=== PATIENT | female | born 2000 | race Caucasian/White ===

== ENCOUNTER 2023-12-04 20:00 | Emergency (ER) | payer OTHER, SELFPAY ==
[2023-12-04 20:02] VITALS: BP 154/76; PULSE 139; RESP 20; TEMP 37.1; O2SAT 98; BMI 35.0
--- NOTE | 2023-12-04 20:03 | ED.GENADULT ---
HPI - General Adult General Chief complaint: Allergic Reaction Stated complaint: allergic reaction, yes epi. Time Seen by Provider: 12/04/23 21:02 Source: patient Mode of arrival: ambulatory Limitations: no limitations History of Present Illness HPI narrative: Patient's allergic reaction to multiple food items on Xolair and Benadryl as needed had chicken wrap earlier and noticed swelling of the gum and tingling feeling on the lips took 3 x25 mg Benadryl tablet and EpiPen about 1 hour prior to arrival now feeling back to normal no throat swelling no difficulty in breathing no rash Related Data Previous Rx's Medication Instructions Recorded epinephrine 0.3 mg/0.3 mL 0.3 mg (0.3 mL) IM Q4H PRN 12/04/23 injection, auto-injector (EpiPen) anaphylaxis #2 ea Allergies Allergy/AdvReac Type Severity Reaction Status Date / Time azithromycin Allergy Anaphylaxis Verified 12/04/23 20:11 Beef Containing Products Allergy Anaphylaxis Verified 12/04/23 20:11 blackberry Allergy Anaphylaxis Verified 12/04/23 20:11 blueberry Allergy Anaphylaxis Verified 12/04/23 20:11 chicken derived [chicken] Allergy Anaphylaxis Verified 12/04/23 20:11 egg Allergy Anaphylaxis Verified 12/04/23 20:11 environmental allergies Allergy Unknown Verified 12/04/23 20:22 fish derived [fish] Allergy Anaphylaxis Verified 12/04/23 20:11 ibuprofen [From Advil] Allergy Anaphylaxis Verified 12/04/23 20:11 milk Allergy Anaphylaxis Verified 12/04/23 20:11 mustard Allergy Anaphylaxis Verified 12/04/23 20:11 naproxen [From Aleve] Allergy Anaphylaxis Verified 12/04/23 20:11 onion Allergy Anaphylaxis Verified 12/04/23 20:11 pork derived (porcine) Allergy Anaphylaxis Verified 12/04/23 20:11 raspberry Allergy Anaphylaxis Verified 12/04/23 20:11 strawberry Allergy Anaphylaxis Verified 12/04/23 20:11 sunflower seed Allergy Anaphylaxis Verified 12/04/23 20:11 Review of Systems Review of Systems: Yes all other systems are reviewed and are negative PMFSH Social History Social History Advance Directives: No Advance Directives Information Provided: No Physical Exam ED Vital Signs: Vital Signs - 24 hr 12/04/23 20:02 12/04/23 20:25 Temperature 98.8 F 98.6 F Pulse Rate 139 H 113 H Respiratory Rate 20 14 Blood Pressure 154/76 H 146/83 H Pulse Oximetry 98 98 Oxygen Delivery Method Room Air Room Air BMI result Body Mass Index 35.0 Appearance: Alert. Oriented X3. No acute distress. ENT: Pharynx normal. Oral Mucosa moist lip and tongue normal Neck: Normal inspection. Neck supple. CVS: Normal heart rate and rhythm. Pulses normal. Respiratory: No respiratory distress. Equal air entry bilateral, no wheezing/rales/rhonchi Abdomen: Soft and nontender. Skin: Skin warm and dry. Normal skin color. Normal skin turgor. extremities: No lower extremity edema. No calf tenderness Neuro: Oriented X 3. Course Course Course Narrative: This is a rapid medical exam: Additional HPI, ROS, PE not included below will be deferred to primary provider. Patient is a 23-year-old female presenting to the emergency department with complaint of lip swelling after eating a chicken wrap prior to arrival. Took 75mg of benadryl and used her Epi-pen prior to arrival. States this is the first time she has ever used her Epi-pen. States she has allergies to everything that it's possible to be allergy tested for. Lungs clear throughout, no angioedema noted, no uvula edema, patient speaking easily in full sentences. Tachycardic to 140. Plan: EKG Medical Decision Making Medical Decision Making [facility] Narrative: With allergic reactions responded to epi and Benadryl at this time patient is stable discharge patient home on EpiPen Discharge Plan Discharge Clinical Impression: Allergic reaction Patient Disposition: Home, Self-Care Instructions: General Allergic Reaction (ED) Additional Instructions: Take Benadryl as advised for recurrence of the allergic reaction May use EpiPen if gets worse and come to the hospital Continue your Xolair injection Follow-up with your allergic specialist Prescriptions: New epinephrine [EpiPen] 0.3 mg/0.3 mL auto-injector 0.3 mg IM Q4H PRN (Reason: anaphylaxis) Qty: 2 2RF
--- NOTE | 2023-12-04 20:06 | ECG_ITS ---
Test Reason : TACHYCARDIA Blood Pressure : / mmHG Vent. Rate : 118 BPM Atrial Rate : 119 BPM P-R Int : 148 ms QRS Dur : 076 ms QT Int : 314 ms P-R-T Axes : 049 040 046 degrees QTc Int : 440 ms Sinus tachycardia Otherwise normal ECG No previous ECGs available Referred By: Domitila Cantu Electronically Signed By:Efrain Dumas
[2023-12-04 20:25] VITALS: BP 146/83; PULSE 113; RESP 14; TEMP 37; O2SAT 98
== END 2023-12-04 21:46 | disposition home or self-care (01) ==
PROVIDERS: Emergency Provider Internal Medicine
DX: T78.1XXA Other adverse food reactions, not elsewhere classified, initial encounter (principal); X58.XXXA Exposure to other specified factors, initial encounter
CPT/HCPCS: 93005; 99283; 99284

== ENCOUNTER → 2023-12-04 20:06 | Outpatient (BNV) | payer OTHER, SELFPAY | PROVIDERS: Emergency Provider Internal Medicine; Visit Provider Internal Medicine Cardiovascular Disease | DX: R00.0 Tachycardia, unspecified (principal) | CPT/HCPCS: 93010 ==

== ENCOUNTER 2024-11-02 17:39 | Emergency (ER) | payer OTHER, SELFPAY ==
[2024-11-02 17:42] VITALS: BP 142/90; PULSE 108; RESP 20; TEMP 36.8; O2SAT 98; BMI 40.6
--- NOTE | 2024-11-02 17:48 | ED_ITS ---
HPI - General Adult General Chief complaint: Allergic Reaction Stated complaint: allergic reaction/epi pen used Time Seen by Provider: 11/02/24 18:37 Source: patient Mode of arrival: ambulatory Limitations: no limitations History of Present Illness ED Provider: Dr. Tobar HPI narrative: 24-year-old female presents emergency department complaining of allergic reaction. She feels like the food that she was eating was cross contaminated. Patient is allergic to multiple different foods. Patient is unsure what she was exposed today she did use Benadryl and EpiPen for resolution of symptoms she was given prednisone on arrival here. 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 Related Data Previous Rx's ?Medication ?Instructions ?Recorded epinephrine 0.3 mg/0.3 mL 0.3 mg (0.3 mL) IM Q4H PRN 12/04/23 injection, auto-injector (EpiPen) anaphylaxis #2 ea prednisone 20 mg tablet 60 mg (3 x 20 mg) PO DAILY Asthma 11/02/24 5 days #15 tabs Allergies Allergy/AdvReac Type Severity Reaction Status Date / Time azithromycin Allergy Anaphylaxis Verified 11/02/24 17:44 Beef Containing Products Allergy Anaphylaxis Verified 11/02/24 17:44 blackberry Allergy Anaphylaxis Verified 11/02/24 17:44 blueberry Allergy Anaphylaxis Verified 11/02/24 17:44 chicken derived [chicken] Allergy Anaphylaxis Verified 11/02/24 17:44 egg Allergy Anaphylaxis Verified 11/02/24 17:44 environmental allergies Allergy Unknown Verified 11/02/24 17:44 fish derived [fish] Allergy Anaphylaxis Verified 11/02/24 17:44 ibuprofen [From Advil] Allergy Anaphylaxis Verified 11/02/24 17:44 milk Allergy Anaphylaxis Verified 11/02/24 17:44 mustard Allergy Anaphylaxis Verified 11/02/24 17:44 naproxen [From Aleve] Allergy Anaphylaxis Verified 11/02/24 17:44 onion Allergy Anaphylaxis Verified 11/02/24 17:44 pork derived (porcine) Allergy Anaphylaxis Verified 11/02/24 17:44 raspberry Allergy Anaphylaxis Verified 11/02/24 17:44 strawberry Allergy Anaphylaxis Verified 11/02/24 17:44 sunflower seed Allergy Anaphylaxis Verified 11/02/24 17:44 Review of Systems Review of Systems: Review of systems: General: Patient denies any fever chills recent illness or falls Musculoskeletal: Denies back pain or body aches or other injuries HEENT: denies headache, runny nose, ear pain Respiratory: denies shortness of breath, cough Cardiovascular: no chest pain or palpitations : denies dysuria, frequency Abdomen: no nausea vomiting denies abdominal pain Extremities: no swelling, no pain Skin: no diaphoresis Yes all other systems are reviewed and are negative PMFSH Social History Social History Advance Directives: No Advance Directives Information Provided: No Physical Exam ED Vital Signs: Vital Signs - 24 hr 11/02/24 17:42 11/02/24 19:28 11/02/24 19:48 Temperature 98.2 F 98.5 F 98.5 F Pulse Rate 108 H 82 82 Respiratory Rate 20 18 18 Blood Pressure 142/90 H 124/74 124/74 Pulse Oximetry 98 98 98 Oxygen Delivery Method Room Air Room Air Room Air BMI result Body Mass Index 40.6 General: Well-appearing well-nourished in no signs of distress HEENT: Normocephalic atraumatic Neck: No signs of JVD, no masses no tenderness or lymphadenopathy Cardiovascular: Regular rate and rhythm Respiratory: Clear to auscultation bilaterally Abdomen: Soft nontender no masses Extremities: Normal pedal pulses no signs of edema Skin: Dry warm no rashes Back: No tenderness full ROM Course Course Course Narrative: RME: 24 yold female presents to the ED for allergic reaction. patient had sushi without her knowledge and then started having some upper lip swelling, facial swelling, hives, and abdominal cramping. Patient given EpiPen and Benadryl symptoms started resolving. Presently no angioedema patient states itchiness and abdominal cramping. Charge nurse crystal made aware and will bring patient back to the ED. Pepcid prednisone given. Patient took Benadryl about 50 mg hour ago. Medications Administered Discontinued Medications Generic Name Dose Route Start Last Admin Trade Name Freq PRN Reason Stop Dose Admin Famotidine 20 mg 11/02/24 17:46 11/02/24 17:50 Famotidine 20 Mg Tablet PO 11/02/24 17:47 20 mg ONCE ONE Administration Prednisone 40 mg 11/02/24 17:46 11/02/24 17:50 Prednisone 20 Mg Tablet PO 11/02/24 17:47 40 mg ONCE ONE Administration Medical Decision Making Medical Decision Making [facility] Narrative: Patient with multiple allergies under have originally did take Benadryl and epi I will send the patient home with prednisone Differential Diagnosis Differential Diagnoses: The differential diagnosis associated with the presentation includes Allergy Discharge Plan Discharge Clinical Impression: Allergic reaction Patient Disposition: Home, Self-Care Instructions: General Allergic Reaction (ED) Additional Instructions: You were seen today for an allergic reaction. You were given prednisone and sent home on prednisone if you have any other concerns please return to the ER Prescriptions: New prednisone 20 mg tablet 60 mg PO DAILY 5 Days Qty: 15 0RF No Action epinephrine [EpiPen] 0.3 mg/0.3 mL auto-injector 0.3 mg IM Q4H PRN (Reason: anaphylaxis) Qty: 2 2RF Interventions: ED Discharge Assessment Last Done: 11/02/24 19:48 Discharge Date/Time: 11/02/24 19:49 Print Language: Latvian
[2024-11-02] MEDS: predniSONE 20 MG TABLET 40 MG PO (17:50)
[2024-11-02] MEDS: Famotidine 20 MG TABLET PO (17:50)
--- OUTSIDE RECORDS SUMMARY | 2024-11-02 18:33 | XMS_ITS | Continuity of Care Document ---
Author Organization [facility] Address 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 Please contact the source practice for further details. Medications Medication Instructions Dosage Effective Dates (start - stop) Status Comments Xolair 150 mg/mL subcutaneous syringe inject 300MG by subcutaneous route every 4 weeks - Active EpiPen 2-Anselmo 0.3 mg/0.3 mL injection, auto-injector Inject Im for severe allergic reaction - Active Depo-Provera 150 mg/mL intramuscular syringe inject 1 milliliter by intramuscular route every 3 months 150 MG - Active Auvi-Q 0.3 mg/0.3 mL injection, auto-injector inject 0.3 milliliter by intramuscular route once as needed for anaphylaxis 0.3 MG - Active Symbicort 160 mcg-4.5 mcg/actuation HFA aerosol inhaler inhale 2 puff by inhalation route 2 times every day in the morning and evening 2.00 puff - Active ProAir HFA 90 mcg/actuation aerosol inhaler inhale 2 puff by inhalation route every 4 - 6 hours as needed - Active Renetta Allergy 180 mg tablet take 1 tablet by oral route every day 180 MG - Active Zyrtec 10 mg tablet take 1 tablet by ora l route every day 10 MG - Active Problems Condition Type Effective Dates (start - stop) Clini julio Status Comments No Known Problems Procedures Procedure Date OV, Estab Pt, Level III Therapeutic, Prophylactic, Diagnostic In [facility]; SQ Or IM Omalizumab (Xolair) Inj 5 Mg Pharmacy Santos pplied Percut Allergy Skin Tests OV, New Pt, Level IV OV, Estab Pt, Level III Diagnostic Nasal Endoscopy OV, Estab Pt, Level III Percut Allergy Skin Tests OV, Estab Pt, Level III OV, Estab Pt, Level III Control Nasal Hem,Anterior Complex OV, Estab Pt, Level III Percut Allergy Skin Tests Intracutaneous Tests W/ Allergen Ex OV, Estab Pt, Level III [facility]; 1/mx Antig 7 Prof Svcs For Allergen Immun, Multi Antigen Prep,Specify # Of Doses 017 Postop F/u Visit [facility] 7 Prof Svcs For Allergen Immun, Multi Antigen Prep,Specify # Of Doses - 017 Postop F/u Visit [facility] 7 Prof Svcs For Allergen Immun, Multi Antigen Prep,Specify # Of Doses - 017 Post Op Office Visit Post Op Office Visit Prof Svcs For Allergen Immun, Multi Antigen Prep,Specify # Of Doses 017 Post Op Office Visit Post Op Office Visit Septoplasty Resect Submucous Turbinate,Part/Com Repair Of Nasal Vestibular Stenosis OV, Estab Pt, Level III Prof Svcs For Allergen Immun, [facility] Antigen Prep,Specify # Of Doses 017 OV, Estab Pt, Level III Prof Svcs For Allergen Immun, [facility] Antigen Prep,Specify # Of Doses 017 Diagnostic Nasal Endoscopy OV, Estab Pt, Level III Prof Svcs For Allergen Immun, [facility] Antigen Prep,Specify # Of Doses 017 Prof Svcs For Allergen Immun, [facility] Antigen Prep,Specify # Of Doses 017 Prof Svcs For Allergen Immun, Multi Antigen Prep,Specify # Of Doses 017 Prof Svcs For Allergen Immun, [facility] Antigen Prep,Specify # Of Doses 016 Prof Svcs For Allergen Immun, Multi Antigen Prep,Specify # Of Doses 016 Spirometry W/bwyjy-nf-oghzn [place] 016 OV, Estab Pt, Level III Prof Svcs For Allergen Immun, Multi Antigen Prep,Specify # Of Doses 016 Prof Svcs For Allergen Immun, Multi Antigen Prep,Specify # Of Doses 016 Prof Svcs For Allergen Immun, [facility] Antigen Prep,Specify # Of Doses 016 Prof Svcs For Allergen Immun, Multi Antigen Prep,Specify # Of Doses 016 OV, Estab Pt, Level III Diagnostic Nasal Endoscopy Prof Svcs For Allergen Immun, [facility] Antigen Prep,Specify # Of Doses 016 Control Nasal Hem,Anterior Complex OV, Estab Pt, Level III Removal Impacted Cerumen Req Instrumenta tion Removal Impacted Cerumen Req Instrumenta tion Prof Svcs For Allergen Immun, Multi Antigen Prep,Specify # Of Doses 016 OV, Estab Pt, Level III No Service Provided This Day Prof Svcs For Allergen Immun, Multi Antigen Prep,Specify # Of Doses 016 Prof Svcs For Allergen Immun, Multi Antigen Prep,Specify # Of Doses 016 Prof Svcs For Allergen Immun, Multi Antigen Prep,Specify # Of Doses 016 Prof Svcs For Allergen Immun, Multi Antigen Prep,Specify # Of Doses 016 Prof Svcs For Allergen Immun, Multi Antigen Prep,Specify # Of Doses 016 Prof Svcs For Allergen Immun, Multi Antigen Prep,Specify # Of Doses 016 Prof Svcs For Allergen Immun, Multi Antigen Prep,Specify # Of Doses 016 Prof Svcs For Allergen Immun, Multi Antigen Prep,Specify # Of Doses -2 015 Prof Svcs For Allergen Immun, Multi Antigen Prep,Specify # Of Doses -2 015 Prof Svcs For Allergen Immun, Multi Antigen Prep,Specify # Of Doses -2 015 Prof Svcs For Allergen Immun, Multi Antigen Prep,Specify # Of Doses - 015 Prof Svcs For Allergen Immun, Multi Antigen Prep,Specify # Of Doses -2 015 Prof Svcs For Allergen Immun, Multi Antigen Prep,Specify # Of Doses - 015 OV, Estab Pt, Level III Percut Allergy Skin Tests Prof Svcs For Allergen Immun, Multi Antigen Prep,Specify # Of Doses 015 Prof Svcs For Allergen Immun, [facility] Antigen Prep,Specify # Of Doses 015 Prof Svcs For Allergen Immun, Multi Antigen Prep,Specify # Of Doses 015 Prof Svcs For Allergen Immun, Multi Antigen Prep,Specify # Of Doses 015 Prof Svcs For Allergen Immun, Multi Antigen Prep,Specify # Of Doses 015 Prof Svcs For Allergen Immun, Multi Antigen Prep,Specify # Of Doses 015 Prof Svcs For Allergen Immun, Multi Antigen Prep,Specify # Of Doses 015 OV, Estab Pt, Level III Prof Svcs For Allergen Immun, Multi Antigen Prep,Specify # Of Doses 015 Prof Svcs For Allergen Immun, Multi Antigen Prep,Specify # Of Doses 015 Prof Svcs For Allergen Immun, Multi Antigen Prep,Specify # Of Doses 015 No Service Provided This Day Prof Svcs For Allergen Immun, Multi Antigen Prep,Specify # Of Doses -2 015 Prof Svcs For Allergen Immun, Multi Antigen Prep,Specify # Of Doses -2 015 Prof Svcs For Allergen Immun, Multi Antigen Prep,Specify # Of Doses Dec--2 015 Prof Svcs For Allergen Immun, Multi Antigen Prep,Specify # Of Doses Dec--2 015 Prof Svcs For Allergen Immun, Multi Antigen Prep,Specify # Of Doses Nov--2 015 Prof Svcs For Allergen Immun, Multi Antigen Prep,Specify # Of Doses Nov--2 015 Prof Svcs For Allergen Immun, Multi Antigen Prep,Specify # Of Doses Nov--2 015 Prof Svcs For Allergen Immun, Multi Antigen Prep,Specify # Of Doses Nov--2 015 Prof Svcs For Allergen Immun, Multi Antigen Prep,Specify # Of Doses - 015 Prof Svcs For Allergen Immun, Multi Antigen Prep,Specify # Of Doses 015 Prof Svcs For Allergen Immun, Multi Antigen Prep,Specify # Of Doses 015 Prof Svcs For Allergen Immun, Multi Antigen Prep,Specify # Of Doses - 015 Prof Svcs For Allergen Immun, Multi Antigen Prep,Specify # Of Doses - 015 Prof Svcs For Allergen Immun, Multi Antigen Prep,Specify # Of Doses -2 014 Prof Svcs For Allergen Immun, Multi Antigen Prep,Specify # Of Doses -2 014 Prof Svcs For Allergen Immun, Multi Antigen Prep,Specify # Of Doses 014 Antigen Prep,Specify # Of Doses - 014 Prof Svcs For Allergen Immun, Multi Prof Svcs For Allergen Immun, Multi Antigen Prep,Specify # Of Doses - 014 Prof Svcs For Allergen Immun, Multi Antigen Prep,Specify # Of Doses -2 014 Prof Svcs For Allergen Immun, [facility] Antigen Prep,Specify # Of Doses -2 014 Prof Svcs For Allergen Immun, [facility] Antigen Prep,Specify # Of Doses -2 014 Prof Svcs For Allergen Immun, Multi Antigen Prep,Specify # Of Doses -2 014 Prof Svcs For Allergen Immun, [facility] Antigen Prep,Specify # Of Doses -2 014 Prof Svcs For Allergen Immun, [facility] Antigen Prep,Specify # Of Doses Jul--2 014 Prof Svcs For Allergen Immun, [facility] Antigen Prep,Specify # Of Doses -2 014 Prof Svcs For Allergen Immun, [facility] Antigen Prep,Specify # Of Doses -2 014 Prof Svcs For Allergen Immun, [facility] Antigen Prep,Specify # Of Doses - 014 Prof Svcs For Allergen Immun, [facility] Antigen Prep,Specify # Of Doses 014 Prof Svcs For Allergen Immun, [facility] Antigen Prep,Specify # Of Doses 014 Antigen Prep,Specify # Of Doses 014 Prof Svcs For Allergen Immun, [facility] Percut Allergy Skin Tests Intracutaneous Tests W/ Allergen Ex Consult, Level III /Office Advance Directives Directive Yes / No Effective Date File Name No Information Encounters Encounter Description Practice Location Reason(s) For Visit Diagnoses Date Provider Providers Copied on Encounter [facility], [address], [place], [place], [id number] , [place] tel: [phone] [facility] No Information 4 Poli Saleem. [address], [address], [place], [place], [id number], [place]. tel:[phone] [facility], [address], [place], [place], [id number] , [place] tel: [phone] [facility] No Information 3 Poli Saleem. [address], [address], [place], [address], [place]. tel:[phone] OV, Estab Pt, Level III [facility], [address], [place], [place], [address] , [place] tel: [phone] [facility] allergy symptoms (chief complaint)fo llow up (chief complaint) Idiopathic urticariaOthe r allergic rhinitisDerma titis due to ingested foodModerate persistent asthma, uncomplicated 3 Poli Saleem. [address], [address], [place], [place], [id number], [place]. tel:[phone] Referring Provider: Alex Gamboa, [address] [facility], [place], [address]. tel:[phone] [facility], [address], [place], [place], [address] , [place] tel: [phone] [facility] No Information 2 Poli Saleem. [address], [address], [place], [place], [id number], [place]. tel:[phone] [facility], [address], [place], [place], [address] , [place] tel: [phone] [facility] Idiopathic urticaria 2 Poli Saleem. [address], [address], [place], [address], [place]. tel:[phone] Referring Provider: Alex Gmaboa, [address] [place] [address], [address]. tel:[phone] [facility], [address], [place], [place], [address] , [place] tel: [phone] [facility] No Information 2 Poli Saleem. [address] , [facility] [address], [id number], [place]. tel:[phone] OV, New Pt, Level IV [facility], [address], [place], [place], [address] , [place] tel: [phone] [facility] allergy symptoms (chief complaint)fo llow up (chief complaint) Dermatitis due to ingested foodOther allergic rhinitisIdiop athic urticariaGene ralized skin eruption due to drugs and medicaments taken internallyMod erate persistent asthma, uncomplicated Allergic rhinitis, unspecifiedAl lergic rhinitis due to food 2 Poli Saleem. [address] , [address], [place], [address], [place]. tel:[phone] Referring Provider: Alex Gamboa, [address] [place] [address], [address]. tel:[phone] OV, Estab Pt, Level III [facility], [address], [place], [place], [address] , [place] tel: [phone] [facility] nasal congestion (chief complaint)Po stnasal drip (chief complaint) Chronic rhinitis 9 Lesli Venegas. [address], [address], [place], [place], [address], [place]. [phone] Referring Provider: Alex Gamboa, [facility], [place], [address]. tel:[phone] OV, Estab Pt, Level III [facility], [address], [place], [place], [address] , [place] tel: [phone] [facility] nasal congestion (chief complaint)Po stnasal drip (chief complaint) Allergic rhinitis due to pollenChronic rhinitisHyper trophy of nasal turbinates 9 Lesli Venegas. [address] [facility], [address], [id number], [place]. [phone] Referring Provider: Perla Fajardo, [address] [place], [address]. tel:[phone] OV, Estab Pt, Level III [facility], [address], [place], [place], [address] , [place] tel: [phone] [facility] allergy symptoms (chief complaint)fo llow up (chief complaint) Dermatitis due to ingested foodAllergic rhinitis due to pollenAllergi c rhinitis due to food 8 Poli Saleem. [address] [facility], [address], [place], [address], [place]. tel:[phone] Referring Provider: Perla Fajardo, [address] [place], [address]. tel:[phone] OV, Estab Pt, Level III [facility], [address], [place], [place], [address] , [place] tel: [phone] [facility] nosebleed (chief complaint) Allergic rhinitis, unspecifiedEp istaxis 8 Lesli Venegas. [address] [facility] [address], [address], [place], [address], [place]. tel:[phone] Referring Provider: Perla Scotty, [address], [place], [address]. tel:[phone] OV, Estab Pt, Level III [facility], [address], [place], [place], [address] , [place] tel: [phone] [facility] nasal congestion (chief complaint)no sebleed (chief complaint) Allergic rhinitis, unspecifiedEp istaxis Lesli Venegas. [address], [address], [place], [place], [address], [place]. tel:[phone] Referring Provider: Alex Gamboa, [address] [place] [address], [address]. tel:[phone] [facility], [address], [place], [place], [address] , [place] tel: [phone] [facility] No Information Poli Saleem. [address] [facility], [address], [place], [address], [place]. tel:[phone] OV, Estab Pt, Level III [facility], [address], [place], [place], [address] , [place] tel: [phone] [facility] allergy symptoms (chief complaint) Allergic rhinitis due to pollenDermati tis due to ingested foodOther allergic rhinitisAller gic rhinitis, unspecifiedAl lergic rhinitis due to food 7 Poli Saleem. [address] [facility], [address], [place], [address], [place]. tel:[phone] Referring Provider: Alex Gamboa, [address] [place] [address], [address]. tel:[phone] [facility], [address], [place], [place], [address] , [place] tel: [phone] [facility] post-operati ve visit (chief complaint) Deviated nasal septum Lesli Venegas. [address] [facility], [address], [place], [address], [place]. tel:[phone] Referring Provider: Perla Fajardo, [address] [place], [address]. tel: [phone] [facility], [address], [place], [place], [address] , [place] tel: [phone] [facility] Allergic rhinitis due to pollen No Information [facility], [address], [place], [place], [address] , [place] tel: [phone] [facility] Allergic rhinitis due to pollenOther allergic rhinitisAller gic rhinitis due to animal (cat) (dog) hair and dander Poli Saleem. [address] [facility], [address], [place], [address], [place]. tel:[phone] Referring Provider: Alex Gamboa, [facility], [place], [address]. tel:[phone] [facility], [address], [place], [place], [address] , [place] tel: [phone] [facility] post-operati ve visit (chief complaint) Deviated nasal septum Lesli Venegas. [address] [facility] [address] , [address], [place], [address], [place]. tel:[phone] Referring Provider: Perla Fajardo, [address] [place], [address]. tel:[phone] [facility], [address], [place], [place], [address] , [place] tel: [phone] [facility] Allergic rhinitis due to pollenOther allergic rhinitisAller gic rhinitis due to animal (cat) (dog) hair and dander 8 7 Lesli Venegas. [address] [facility], [address], [id number], [place]. tel: [phone] Referring Provider: Perla Fajardo, [address] [place], [address]. tel: [phone] [facility], [address], [place], [place], [address] , [place] tel: [phone] [facility] post-operati ve visit (chief complaint) Deviated nasal septum 7 Lesil Venegas. [address] [facility], [address], [id number], [place]. tel: [phone] Referring Provider: Alex Gamboa, [address] [place] [address], [facility]. tel: [phone] [facility], [address], [place], [place], [address] , [place] tel: [phone] [facility] Allergic rhinitis due to pollenOther allergic rhinitisAller gic rhinitis due to animal (cat) (dog) hair and dander 0 7 Poli Saleem. [address] [facility], [address], [place], [address], [place]. tel:[phone] Referring Provider: Alex Gambao, [address] [place] [address], [address]. tel: [phone] [facility], [address], [place], [place], [address] , [place] tel: [phone] [facility] post-operati ve visit (chief complaint) Deviated nasal septum 7 Lesli Venegas. [address] [facility], [address], [place], [address], [place]. tel:[phone] Referring Provider: Perla Fajardo, [address] [place], [address]. tel:[phone] [facility], [address], [place], [place], [address] , [place] tel: [phone] [facility] post-operati ve visit (chief complaint) Deviated nasal septum 0- 7 Lesli Venegas. [address] [facility], [facility] [address], [place], [address], [place]. tel:[phone] Referring Provider: Alex Gamboa, [address] [place] [address], [address]. tel:[phone] [facility], [address], [place], [address] , [place] tel: [phone] [facility] Allergic rhinitis due to pollenOther allergic rhinitisAller gic rhinitis due to animal (cat) (dog) hair and dander 7 Poli Saleem. [address] [facility], [address], [place], [address], [place]. tel:[phone] Referring Provider: Alex Gamboa, [address] [place] [address], [address]. tel:[phone] [facility], [address] [place] [address], [id number] , [place] tel: [phone] [facility] post-operati ve visit (chief complaint) Deviated nasal septum 7 Lesli Venegas. [address] [facility], [address], [place], [address], [place]. tel:[phone] Referring Provider: Alex Gamboa, [address] [place] [address], [address]. tel:[phone] [facility], [address], [place], [address] , [place] tel: [phone] [facility] Deviated nasal septumHypertr ophy of nasal turbinatesOth er specified disorders of nose and nasal sinuses 7 Lesli Venegas. [address], [address], [place], [address], [place]. tel:[phone] [facility], [address], [place], [place], [address] , [place] tel: [phone] [facility] Deviated nasal septum 7 Lesli Venegas. [address], [facility] [address], [place], [address], [place]. tel:[phone] Referring Provider: Perla Fajardo, [address] [place], [address]. tel:[phone] [facility], [address], [place], [place], [address] , [place] tel: [phone] [facility] No Information 7 Lesli Venegas. [address] [facility], [address], [id number], [place]. tel:[phone] Referring Provider: Alex Gamboa, [address] [place] [address], [address]. tel:[phone] OV, Estab Pt, Level III [facility], [address], [place], [place], [address] , [place] tel: [phone] [facility] nasal congestion (chief complaint)Na otto obstruction (chief complaint) Deviated nasal septumHypertr ophy of nasal turbinatesOth er specified disorders of nose and nasal sinuses 0 7 Lesli Venegas. [address] [facility] [address], [facility] [address], [place], [address], [place]. tel:[phone] Referring Provider: Alex Gamboa, [address] [place] [address], [address]. tel:[phone] [facility], [address], [place], [place], [address] , [place] tel: [phone] [facility] Allergic rhinitis due to pollenOther allergic rhinitisAller gic rhinitis due to animal (cat) (dog) hair and dander Apr-2 7 Poli Saleem. [address] [facility], [address], [place], [address], [place]. tel:[phone] Referring Provider: Alex Gamboa, [address] [place] [address], [facility]. tel:[phone] OV, Estab Pt, Level III [facility], [address] [place] [address], [id number] , [place] tel: [phone] [facility] nasal congestion (chief complaint)Na otto obstruction (chief complaint) Allergic rhinitis due to animal (cat) (dog) hair and danderNasal congestionOth er specified disorders of nose and nasal sinusesHypert rophy of nasal turbinatesDev iated nasal septum Apr-2 7 Lesli Venegas. [address] [facility], [address], [place], [place], [address], [place]. tel:[phone] Referring Provider: Alex Gamboa, [address] [place] [address], [facility]. tel:[phone] [facility], [address] [place] [address], [id number] , [place] tel: [phone] [facility] Allergic rhinitis due to pollenOther allergic rhinitisAller gic rhinitis due to animal (cat) (dog) hair and dander Apr-0 7 Poli Saleem. [address], [address], [place], [address], [place]. tel:[phone] Referring Provider: Perla Fajardo, [address] [place], [address]. tel:[phone] OV, Estab Pt, Level III [facility], [address] [place] [address], [id number] , [place] tel: [phone] [facility] nasal congestion (chief complaint)Na otto obstruction (chief complaint) Deviated nasal septumHypertr ophy of nasal turbinatesOth er specified disorders of nose and nasal sinusesNasal congestion 7 Lesli Venegas. [address] [facility] [address], [address], [place], [place], [address], [place]. tel:[phone] Referring Provider: Perla Fajardo, [address], [place], [address]. tel:[phone] [facility], [address], [place], [place], [address] , [place] tel: [phone] [facility] Allergic rhinitis due to pollenOther allergic rhinitisAller gic rhinitis due to animal (cat) (dog) hair and dander Poli Saleem. [address] , [address], [place], [address], [place]. tel:[phone] Referring Provider: Alex Gamboa, [address] [place] [address], [address]. tel:[phone] [facility], [address], [place], [place], [address] , [place] tel: [phone] [facility] Allergic rhinitis due to pollenOther allergic rhinitisAller gic rhinitis due to animal (cat) (dog) hair and dander 7 Poli Saleem. [address] , [address], [place], [address], [place]. tel:[phone] Referring Provider: Alex Gamboa, [address] [place] [address], [address]. tel:[phone] [facility], [address], [place], [place], [address] , [place] tel: [phone] [facility] Allergic rhinitis due to pollenOther allergic rhinitisAller gic rhinitis due to animal (cat) (dog) hair and dander 7 Poli Saleem. [address] , [address], [place], [address], [place]. tel: [phone] Referring Provider: Alex Gamboa, [address] [place], [address]. tel: [phone] [facility], [address], [place], [place], [address] , [place] tel: [phone] [facility] Allergic rhinitis due to pollenOther allergic rhinitisAller gic rhinitis due to animal (cat) (dog) hair and dander 6 Poli Saleem. [address], [address], [place], [address], [place]. tel: [phone] Referring Provider: Casi Samuels, [address] [place], [address]. tel: [phone] OV, Estab Pt, Level III [facility], [address], [place], [place], [address] , [place] tel: [phone] [facility] allergy symptoms (chief complaint) Allergic rhinitis due to pollenAllergi c rhinitis due to animal (cat) (dog) hair and danderModerat e persistent asthma, uncomplicated Other allergic rhinitis 6 Poli Saleem. [address], [place], [address], [place]. tel:[phone] Referring Provider: Alex Gamboa, [address] [place], [address]. tel: [phone] [facility], [address], [place], [place], [address] , [place] tel: [phone] [facility] Allergic rhinitis due to pollenOther allergic rhinitisAller gic rhinitis due to animal (cat) (dog) hair and dander 6 Poli Saleem. [address], [place] [address], [place], [address], [place]. tel:[phone] Referring Provider: Alex Gamboa, [address] [place], [address]. tel: [phone] [facility], [address], [place], [place], [address] , [place] tel: [phone] [facility] Allergic rhinitis due to pollenOther allergic rhinitisAller gic rhinitis due to animal (cat) (dog) hair and dander 6 Poli Saleem. [address], [address], [place], [place], [address], [place]. tel: [phone] Referring Provider: Alex Gamboa, [address] [place] [address], [address]. tel: [phone] [facility], [address], [place], [place], [address] , [place] tel: [phone] [facility] Allergic rhinitis due to pollenOther allergic rhinitisAller gic rhinitis due to animal (cat) (dog) hair and dander 6 Poli Saleem. [address], [address], [place], [place], [address], [place]. tel: [phone] Referring Provider: Alex Gamboa, [address] [place] [address], [address]. tel: [phone] [facility], [address], [place], [place], [address] , [place] tel: [phone] [facility] Allergic rhinitis due to pollenOther allergic rhinitisAller gic rhinitis due to animal (cat) (dog) hair and dander 6 Poli Saleem. [address], [address], [place], [place], [address], [place]. tel:[phone] Referring Provider: Alex Gamboa, [address] [place] [address], [address]. tel: [phone] OV, Estab Pt, Level III [facility], [address], [place], [place], [address] , [place] tel: [phone] [facility] nosebleed (chief complaint)na otto congestion (chief complaint) Deviated nasal septumEpistax isHypertrophy of nasal turbinatesHyp ertrophy of adenoids 6 Lesli Venegas. [address] [facility] , [address], [id number], [place]. tel: [phone] Referring Provider: Alex Samuels W, [address] [facility], [place], [address]. tel: [phone] [facility], [address], [place], [place], [address] , [place] tel: [phone] [facility] No Information 6 Poli Saleem. [address] , [address], [id number], [place]. tel: [phone] OV, Estab Pt, Level III [facility], [address], [place], [place], [address] , [place] tel: [phone] [facility] nasal congestion (chief complaint)no sebleed (chief complaint)ea r fullness (chief complaint) Deviated nasal septumHypertr ophy of nasal turbinatesEpi staxisImpacte d cerumen, bilateral 6 Lesli Venegas. 400 [facility], [facility] [place], [place], [address], [place]. tel: [phone] Referring Provider: Casi Samuels, [address] [place], [address]. tel: [phone] [facility], [address], [place], [place], [address] , [place] tel: [phone] [facility] No Information 6 Poli Saleem. [address] , [address], [place], [place], [address], [place]. tel: [phone] OV, Estab Pt, Level III [facility], [address], [place], [place], [address] , [place] tel: [phone] [facility] rhinitis, allergic (chief complaint) Allergic rhinitis due to animal (cat) (dog) hair and danderAllergi c rhinitis due to pollenOther allergic rhinitis 6 Poli Saleem. [address], [address], [place], [address], [place]. tel:[phone] Referring Provider: Casi Samuels, [address] [place], [address]. tel:[phone] [facility], [address], [place], [place], [address] , [place] tel: [phone] [facility] No Information 6 Poli Saleem. [address], [address], [place], [address], [place]. tel:[phone] [facility], [address], [place], [place], [address] , [place] tel: [phone] [facility] No Information 6 Poli Saleem. [address], [address], [place], [place], [address], [place]. tel:[phone] Referring Provider: Casi Samuels, [address] [place], [address]. tel: [phone] [facility], [address], [place], [place], [address] , [place] tel: [phone] [facility] No Information 6 Poli Saleem. [address], [address], [place], [address], [place]. tel:[phone] Referring Provider: Casi Samuels, [address] [place], [address]. tel:[phone] [facility], [address], [place], [place], [address] , [place] tel: [phone] [facility] No Information 6 Poli Saleem. [address], [address], [place], [place], [address], [place]. tel: [phone] [facility], [address], [place], [place], [address] , [place] tel: [phone] [facility] No Information 6 Simona Thomas. [address], [address], [place], [address], [place]. tel: [phone] [facility], [address], [place], [place], [address] , [place] tel: [phone] [facility] No Information 6 Poli Saleem. [address], [address], [place], [place], [address], [place]. tel: [phone] Referring Provider: Stiven Ashton MD, [address], [place], [address]. tel: [phone] [facility], [address], [place], [place], [address] , [place] tel: [phone] [facility] No Information 6 Adriano Brandt. [address], [address], [place], [place], [address], [place]. tel: [phone] Referring Provider: Casi Samuels, [address] [facility] [place], [address]. tel: [phone] [facility], [address], [place], [place], [address] , [place] tel: [phone] [facility] No Information 6 Adriano Brandt. [address] [facility], [address], [id number], [place]. tel: [phone] [facility], [address], [place], [place], [address] , [place] tel: [phone] [facility] No Information 5 Simona Thomas. [address] [facility] , [address], [address], [place]. tel: [phone] [facility], [address], [place], [place], [address] , [place] tel: [phone] [facility] No Information 5 Adriano Brandt. [address] [facility], [address], [id number], [place]. tel: [phone] [facility], [address], [place], [place], [address] , [place] tel: [phone] [facility] No Information 5 Lesli Venegas. [address] [facility], [address], [address], [place]. tel: [phone] Referring Provider: Casi Samuels, [facility] [place], [address]. tel: [phone] [facility], [address], [place], [place], [address] , [place] tel: [phone] [facility] No Information 5 Siomna Thomas. [address] [facility] , [facility] [address], [place], [address], [place]. tel: [phone] [facility], [address], [place], [place], [address] , [place] tel: [phone] [facility] Allergic rhinitis due to pollenOther allergic rhinitisAller gic rhinitis due to animal (cat) (dog) hair and dander 5 Simona Thomas. [address] [facility] [address], [address], [place], [place], [address], [place]. tel: [phone] [facility], [address], [place], [place], [address] , [place] tel: [phone] [facility] No Information Jun- 5 Poli Saleem. [address], [address], [place], [place], [address], [place]. tel: [phone] OV, Estab Pt, Level III [facility], [address], [place], [place], [address] , [place] tel: [phone] [facility] rhinitis, allergic (chief complaint)Fo od Allergy (chief complaint) Dermat D/t Food IngestAllergy , UnspecifiedRh initis Due To Pollen Jun- 5 Katelyn Stroud. [address] [place] [address] Rd [address], [place], [place], [address], [place]. tel: [phone] [facility], [address], [place], [place], [address] , [place] tel: [phone] [facility] No Information 5 Poli Saleem. [address], [address], [place], [place], [address], [place]. tel: [phone] Referring Provider: Rikki Oh MD, [address] [facility] [address], [place], [address]. tel: [phone] [facility], [address], [place], [place], [address] , [place] tel: [phone] [facility] No Information 5 Sav Venegas. [address] [facility], [address] [place] [address], [id number], [place]. tel:[phone] Referring Provider: Casi Samuels, [address] [place], [address]. tel:[phone] [facility], [address], [place], [place], [address] , [place] tel: [phone] [facility] No Information 5 Sav Venegas. 400 [facility], [address], [address], [place]. tel:[phone] Referring Provider: Casi Samuels, [address] [place], [address]. tel:[phone] [facility], [address], [place], [place], [address] , [place] tel: [phone] [facility] No Information 5 Katelyn Stroud. [address] [place] [address] [address], [place], [place], [address], [place]. tel:[phone] [facility], [address], [place], [place], [address] , [place] tel: [phone] [facility] No Information 5 Sav Venegas. [address] [facility], [address], [place], [address], [place]. tel:[phone] [facility], [address], [place], [place], [address] , [place] tel: [phone] [facility] No Information 5 Sav Venegas. [address] [facility] [address], [address], [place], [address], [place]. tel:[phone] [facility], [address], [place], [place], [address] , [place] tel: [phone] [facility] No Information 0- 5 Sav Venegas. [address], [address], [address], [place]. tel: [phone] OV, Estab Pt, Level III [facility], [address], [place], [place], [address] , [place] tel: [phone] [facility] rhinitis, allergic (chief complaint) Rhinitis Due To Pollen Jan-2 5 Katelyn Stroud. [address] [place] [address] [address], [place], [place], [address], [place]. tel: [phone] Referring Provider: Casi Samuels, [address] [place] [address], [address]. tel: [phone] [facility], [address], [place], [place], [address] , [place] tel: [phone] [facility] No Information 5 Sav Venegas. [address], [address], [id number], [place]. tel: [phone] [facility], [address], [place], [place], [address] , [place] tel: [phone] [facility] No Information 5 Sav Venegas. [address], [facility] [address], [place], [address], [place]. tel: [phone] [facility], [address], [place], [place], [address] , [place] tel: [phone] [facility] No Information 0 6 5 Katelyn Stroud. [address] [facility] [address], [place], [place], [address], [place]. tel: [phone] [facility], [address], [place], [place], [address] , [place] tel: [phone] [facility] No Information 5 Katelyn Stroud. [address] [facility] [address], [place], [place], [address], [place]. tel: [phone] [facility], [address], [place], [place], [address] , [place] tel: [phone] [facility] No Information 5 Simona Thomas. [address] [facility], [address], [address], [place]. tel: [phone] [facility], [address], [place], [place], [address] , [place] tel: [phone] [facility] No Information 5 Lesli Venegas. [address] [facility], [address], [address], [place]. tel: [phone] [facility], [address], [place], [place], [address] , [place] tel: [phone] [facility] No Information 5 Sav Venegas. [address], [facility] [address], [address], [place]. tel: [phone] [facility], [address], [place], [place], [address] , [place] tel: [phone] [facility] No Information 0 5 Katelyn Stroud. [address] [place] [address] Rd [address], [place], [place], [address], [place]. tel: [phone] [facility], [address], [place], [place], [address] , [place] tel: [phone] [facility] No Information 5 Katelyn Stroud. [address] [facility] [address], [place], [place], [address], [place]. tel: [phone] [facility], [address], [place], [place], [address] , [place] tel: [phone] [facility] No Information 5 Katelyn Stroud. [address] [facility] [address], [place], [place], [address], [place]. tel: [phone] [facility], [address], [place], [place], [address] , [place] tel: [phone] [facility] No Information 5 Katelyn Stroud. [address] [facility] [address], [place], [place], [address], [place]. tel: [phone] Referring Provider: Luanne Zepeda MD, [address] [facility] [address] [place], [address]. tel: [phone] [facility], [address], [place], [place], [address] , [place] tel: [phone] [facility] No Information 5 Katelyn Stroud. [address] [facility] [address], [place], [place], [address], [place]. tel: [phone] [facility], [address], [place], [place], [address] , [place] tel: [phone] [facility] No Information 5 Katelyn Riosin. [address] [facility] [address], [place], [place], [address], [place]. tel:[phone] Referring Provider: Radha Otero, [address] [place] [address], [address]. tel:[phone] [facility], [address], [place], [place], [address] , [place] tel: [phone] [facility] No Information 5 Katelyn Riosin. [address] [facility] [address], [place], [place], [address], [place]. tel:[phone] [facility], [address], [place], [place], [address] , [place] tel: [phone] [facility] No Information 5 Katelyn Riosin. [address] [facility] [address], [place], [place], [address], [place]. tel:[phone] [facility], [address], [place], [place], [address] , [place] tel: [phone] [facility] No Information 5 Katelyn Stroud. [address] [facility] [address], [place], [place], [address], [place]. tel: [phone] [facility], [address], [place], [place], [address] , [place] tel: [phone] [facility] No Information 5 Katelyn Riosin. [address] [facility] [address], [place], [place], [address], [place]. tel: [phone] [facility], [address], [place], [place], [address] , [place] tel: [phone] [facility] No Information 4 Katelyn Riosin. [address] [facility] [address], [place], [place], [address], [place]. tel: [phone] [facility], [address], [place], [place], [address] , [place] tel: [phone] [facility] No Information 4 Katelyn Riosin. [address] [facility] [address], [place], [place], [address], [place]. tel: [phone] [facility], [address], [place], [place], [address] , [place] tel: [phone] [facility] No Information 4 Katelyn Riosin. [address] [facility] [address], [place], [place], [address], [place]. tel: [phone] [facility], [address], [place], [place], [address] , [place] tel: [phone] [facility] No Information 4 Katelyn Stroud. [address] [facility] [address], [place], [place], [address], [place]. tel: [phone] [facility], [address], [place], [place], [address] , [place] tel: [phone] [facility] No Information 4 Katelyn Riosin. [address] [facility] [address], [place], [place], [address], [place]. tel: [phone] [facility], [address], [place], [place], [address] , [place] tel: [phone] [facility] No Information 4 Katelyn Riosin. [address] [facility] [address], [place], [place], [address], [place]. tel: [phone] [facility], [address], [place], [place], [address] , [place] tel: [phone] [facility] No Information 4 Katelyn Stroud. [address] [facility] [address], [place], [place], [address], [place]. tel: [phone] [facility], [address], [place], [place], [address] , [place] tel: [phone] [facility] No Information 4 Katelyn Stroud. [address] [facility] [address], [place], [place], [address], [place]. tel: [phone] [facility], [address], [place], [place], [address] , [place] tel: [phone] [facility] No Information 4 Katelyn Stroud. [address] [facility] [address], [place], [place], [address], [place]. tel: [phone] [facility], [address], [place], [place], [address] , [place] tel: [phone] [facility] No Information 4 Katelyn Stroud. [address] [facility] [address], [place], [place], [address], [place]. tel: [phone] [facility], [address], [place], [place], [address] , [place] tel: [phone] [facility] No Information 8 4 Katelyn Riosin. [address] [facility] [address], [place], [place], [address], [place]. tel:[phone] [facility], [address], [place], [place], [address] , [place] tel: [phone] [facility] No Information 0 1 4 Katelyn Stroud. [address] [facility] [address], [place], [place], [address], [place]. tel: [phone] [facility], [address], [place], [place], [address] , [place] tel: [phone] [facility] No Information 4 Katelyn Riosin. [address] [facility] [address], [place], [place], [address], [place]. tel: [phone] [facility], [address], [place], [place], [address] , [place] tel: [phone] [facility] No Information 0 4 Katelyn Stroud. [address] [facility] [address], [place], [place], [address], [place]. tel: [phone] [facility], [address], [place], [place], [address] , [place] tel: [phone] [facility] No Information 4 Katelyn Stroud. [address] [facility] [address], [place], [place], [address], [place]. tel:[phone] [facility], [address], [place], [place], [address] , [place] tel: [phone] [facility] No Information 4 Katelyn Stroud. [address] [facility] [address], [place], [place], [address], [place]. tel: [phone] [facility], [address], [place], [place], [address] , [place] tel: [phone] [facility] No Information 4 Katelyn Stroud. [address] [facility] [address], [place], [place], [address], [place]. tel: [phone] Consult, Level III /Office [facility], [address], [place], [place], [address] , [place] tel: [phone] [facility] Rhinitis (A) (chief complaint)Ur ticaria/Sandy oedema (chief complaint) Rhinitis Due To Pollen 4 Katelyn Stroud. [address] [facility] [address], [place], [place], [address], [place]. tel: [phone] Referring Provider: Rikki Oh MD, [address], [place], [address]. tel: [phone] [facility], [address], [place], [place], [address] , [place] tel: [phone] [facility] Allergic Rhinitis NosHypertroph y T And A 1 Adriano Brandt. [address], [address], [place], [place], [address], [place]. tel:[phone] Referring Provider: Casi Samuels, [address], [place], [address]. tel:[phone] Family History Family Member Type Diagnosis Age At Onset Mother Problem (finding) raised blood lipids Family H /O Problem (finding) Cancer, breast Mother Problem (finding) hypertension Mother Problem (finding) Thyroid disease Father Problem (finding) Allergies Mother Problem (finding) Hearing loss Father Problem (finding) hypertension Father Problem (finding) raised blood lipids Payers Payer name Insurance type Covered democrat ID Authormerna tibeverly(s) No Information Social History Type Description Quantity Date Captured Comments Sex Female Smoking Status No Information Chief Complaint And Reason For Visit No Information Reason For Referral Reason For Referral No Information Plan Of Treatment Date Type Action Status Future Order: Lab Order Aerobic Bacterial Culture ([id number]), Collected on: , Sent on: Sent History Of Present Illness Encounter Date Complaint History Of Prese nt Illness allergy symptoms follow up PREVIOUS HPI: (11/11/2021) ALLERGY SYMPTOMS (COMMENTS) - Cinda is a 22 year old woman with a history of allergic rhinitis and food allergies who presents today for a follow up visit. She had previously received allergy shots from 2013 to 2016 to tree pollen, grass pollen, weed pollen, dust mite, cats and dogs. She last had food testing in 2018 that was positive to strawberry, egg, clam, mustard, and sunflower.Cinda has continued to have significant allergy symptoms. She develops daily hives. Sometimes this is triggered by foods, but sometimes this can happen randomly. she takes Renetta, Zyrtec up to four times a day but still gets hives or swelling and needs to take Benadryl often at night. She's tried Singulair and Pepcid in the past without relief. She tried allergy shots in the past but could not tolerate them due to local reactions and swelling. She has a history of asthma, and uses Symbicort with Albuterol as needed, but has needed prednisone for asthma flare ups when she is sick with upper respiratory infections. She keeps a strict diet with chicken and vegetables.She is not vaccinated against Covid since she's had reactions to several vaccines in the past. She had trouble breathing/anaphylaxis from the influenza vaccine, terrible swelling and itching and pain from the meningitis vaccine, and she developed shingles after getting the varicella vaccine. She has had Covid twice. She's tried nasal sprays in the past without relief. allergy symptoms (comments) Loyda henderson is a 22 year old woman with allergic rhinitis, food allergies, asthma, and idiopathic urticaria who recently started Xolair who is seen for a TeleHealth virtual visit. She started Xolair 10/16/2022 and she receives it each month on the . She's been doing great on Xolair. She has only had two episodes of hives since starting - once was after eating something with mustard and another was after using a new lotion after shaving her legs. This is a significant improvement. Prior to Xolair, she would develop daily hives despite taking antihistamines up to 4x a day. She has not had any swelling episodes. She is tolerating Xolair well without side effects. She also feels like her breathing/asthma is better on Xolair. Overall, she's very happy with how she's doing. follow up PREVIOUS HPI: (0 12/13/2017) ALLERGY SYMPTOMS (COMMENTS) - Cinda presents today for further food testing. She notes that while she was at school, she was developing rashes/hives on her face shortly after eating. The rashes would clear with Benadryl. This happened every day for a week, while she was eating different food at the cafeteria, which she states consisted more of foods with different sauces/spices and food. She's been trying to avoid egg, and has been avoiding dairy. She'd like testing for additional food allergies. She also notes that every time she eats wheat, she develops almonst immediate diarrhea. She'll be seeing a mini lab operator in December. PREVIOUS HPI: (12/13/2017) FOLLOW UP - PREVIOUS HPI: (09/10/2017) ALLERGY SYMPTOMS (COMMENTS) - Cinda is an 17 year old woman with allergic rhinitis on immunotherapy. She's been receiving allergy shots since 05/2014. She receives shots to TREE; GRASS; RAGWEED/WEED1/WEED2/DUST MITE; CAT/DOG. When she was first starting on shots, she had 2 episodes where she had to go to the ER because of reactions to the shots. Since she's been at school ([employer] in [facility]), she gets her shots at the [facility]. It's been difficult for her to get the shots there because they have limited hours where the offer shots. After her last shot, she developed local swelling at the site of the shots as well as diffuse hives. She received Benadryl and had to wait in the office for 5 horus. She does feel like the shots are helping though, and she would like to continue them.She also notes that within the past 3 months, she started developing hives around her mouth after eating eggs. She also has lactose intolerance, but sometimes feels itchy after having dairy products. She feels itchy after eating pancakes or waffles. allergy symptoms The patient is also experiencing cough, headache and sneezing. The patient denies dizziness, ear pain, hoarseness, nasal congestion, nausea, post nasal drainage and urticaria. allergy symptoms (comments) Loyda henderson is a 22 year old woman with a history of allergic rhinitis and food allergies who presents today for a follow up visit. She had previously received allergy shots from 2013 to 2016 to tree pollen, grass pollen, weed pollen, dust mite, cats and dogs. She last had food testing in 2018 that was positive to strawberry, egg, clam, mustard, and sunflower.Cinda has continued to have significant allergy symptoms. She develops daily hives. Sometimes this is triggered by foods, but sometimes this can happen randomly. she takes Renetta, Zyrtec up to four times a day but still gets hives or swelling and needs to take Benadryl often at night. She's tried Singulair and Pepcid in the past without relief. She tried allergy shots in the past but could not tolerate them due to local reactions and swelling. She has a history of asthma, and uses Symbicort with Albuterol as needed, but has needed prednisone for asthma flare ups when she is sick with upper respiratory infections. She keeps a strict diet with chicken and vegetables.She is not vaccinated against Covid since she's had reactions to several vaccines in the past. She had trouble breathing/anaphylaxis from the influenza vaccine, terrible swelling and itching and pain from the meningitis vaccine, and she developed shingles after getting the varicella vaccine. She has had Covid twice. She's tried nasal sprays in the past without relief. nasal congestion The problem is improving. Associated symptoms include nasal congestion and nasal drainage (posterior). Pertinent negatives include facial pain, food allergies and headache. Postnasal drip The patient pres ents with symptoms that began gradually. Symptoms are improving. The patient is also experiencing nasal congestion and post nasal drainage. The patient denies cough, dizziness, ear pain, headache, hoarseness, nausea, sneezing and urticaria. nasal congestion Onset: gradual. It occurs in both nostrils. It occurs continuously. The problem is worsening. Associated symptoms include nasal drainage (posterior) and seasonal allergies. Pertinent negatives include facial pain, food allergies, headache and nasal congestion. Postnasal drip The patient pres ents with post nasal drainage that began gradually. Symptoms are constant, moderate and worsening. The patient is also experiencing post nasal drainage. The patient denies cough, dizziness, ear pain, headache, hoarseness, nasal congestion, nausea, sneezing and urticaria. follow up PREVIOUS HPI: (11/10/2016) ALLERGY SYMPTOMS (COMMENTS) - Cinda is an 17 year old woman with allergic rhinitis on immunotherapy. She's been receiving allergy shots since 05/2014. She receives shots to TREE; GRASS; RAGWEED/WEED1/WEED2/DUST MITE; CAT/DOG. When she was first starting on shots, she had 2 episodes where she had to go to the ER because of reactions to the shots. Since she's been at school ([employer] in [facility]), she gets her shots at the [facility]. It's been difficult for her to get the shots there because they have limited hours where the offer shots. After her last shot, she developed local swelling at the site of the shots as well as diffuse hives. She received Benadryl and had to wait in the office for 5 horus. She does feel like the shots are helping though, and she would like to continue them.She also notes that within the past 3 months, she started developing hives around her mouth after eating eggs. She also has lactose intolerance, but sometimes feels itchy after having dairy products. She feels itchy after eating pancakes or waffles. allergy symptoms (comments) Loyda henderson presents today for further food testing. She notes that while she was at school, she was developing rashes/hives on her face shortly after eating. The rashes would clear with Benadryl. This happened every day for a week, while she was eating different food at the cafeteria, which she states consisted more of foods with different sauces/spices and food. She's been trying to avoid egg, and has been avoiding dairy. She'd like testing for additional food allergies. She also notes that every time she eats wheat, she develops almonst immediate diarrhea. She'll be seeing a mini lab operator in December. allergy symptoms nosebleed The patient pres ents with a nosebleed that began 6 months ago. The problem has improved. and is an intermittent drip. Patient has a history of allergies. There is no history of bleeding disorders. The patient denies diplopia, ear infections, fever, headache, nasal congestion, sore throat or tinnitus. nosebleed The patient pres ents with a nosebleed that began year ago. The problem has worsened. The patient has had one nosebleeds. Bleeding is worsened by blowing nose, dry climate and forced heat. The bleeding is improved with pinching nose and saline nasal spray. The bleeding is not improved with septodermoplasty. The patient is also experiencing nasal congestion. The patient denies diplopia, ear infections, fever, sore throat or tinnitus. nasal congestion Onset: year ago . The problem fluctuates. Context: with allergies and previous septoplasty. Relieving factors include antihistamines, nasal decongestants and nasal steroids. Associated symptoms include nasal drainage (posterior). Pertinent negatives include facial pain. Additional information: allergic issues as primary - had septo for anatomy control. allergy symptoms The patient den ies cough, dizziness, ear pain, headache, hoarseness, nasal congestion, nausea, post nasal drainage, sneezing and urticaria. allergy symptoms (comments) Loyda henderson is an 17 year old woman with allergic rhinitis on immunotherapy. She's been receiving allergy shots since 05/2014. She receives shots to TREE; GRASS; RAGWEED/WEED1/WEED2/DUST MITE; CAT/DOG. When she was first starting on shots, she had 2 episodes where she had to go to the ER because of reactions to the shots. Since she's been at school ([employer] in [facility]), she gets her shots at the [facility]. It's been difficult for her to get the shots there because they have limited hours where the offer shots. After her last shot, she developed local swelling at the site of the shots as well as diffuse hives. She received Benadryl and had to wait in the office for 5 horus. She does feel like the shots are helping though, and she would like to continue them.She also notes that within the past 3 months, she started developing hives around her mouth after eating eggs. She also has lactose intolerance, but sometimes feels itchy after having dairy products. She feels itchy after eating pancakes or waffles. Nasal obstruction The symptoms a re reported as being severe. The symptoms occur constantly. nasal congestion Onset: gradual. Severity: moderate. It occurs in both nostrils. The patient describes it as partial. It occurs continuously. The problem is worsening. Denies relieving factors. Associated symptoms include deviated septum, seasonal allergies and snoring (mild). Pertinent negatives include facial pain, food allergies, headache and nasal drainage (posterior). Nasal obstruction The symptoms a re reported as being severe. The symptoms occur constantly. The location is bilaterally. nasal congestion Onset: year ago . Severity: moderate. It occurs in both nostrils. The patient describes it as complete. It occurs continuously. The problem is worsening. Denies relieving factors. Associated symptoms include deviated septum, facial pain, headache, nasal drainage (clear), nasal drainage (posterior) and snoring (severe). Additional information: pt has failed on nasonex , flonase , dymista, and saline washes. nasal congestion Onset: gradual. Severity: moderate. It occurs in both nostrils. The patient describes it as partial. It occurs continuously. The problem is worsening. Associated symptoms include deviated septum, nasal drainage (posterior) and snoring (mild). Pertinent negatives include facial pain, food allergies and headache. Nasal obstruction The symptoms a re reported as being moderate. The symptoms occur constantly. The location is bilateral. pt has failed with flonase and nasonex and dymista allergy symptoms allergy symptoms (comments) Loyda henderson is a 16 year old woman with allergic rhinitis on asthma who presents today for a follow up visit. She receives shots to TREE; GRASS; RAGWEED/WEED1/WEED2; CAT/DOG; and DUST MITE. She started shots in 05/2014. She had anaphylaxis after shots in 11/2014, and her maintenace dose was capped at vial 4/0.25. She notes that was the 2nd time she had to go to the ER after getting shots. She was still getting softball sized reactions to injections, so in 02/2016 her shots were split and decreased to vial 4/0.15 and it was recommended to use Zyrtec at night before shots and Renetta the morning of the shots. She's been taking these medications, and the reactions to the shots are no longer as bothersome, but she still feels like she has a lot of allergy symptoms. She gets nasal congestion, a runny nose, and phlegm in her throat. These symptoms are worse in the spring and summer, but they still occur this time of year also. She notes that she has a dog at home, and the dog comes into her bedroom. If the dog licks her, then she gets hives. She has dust mite covers for her bed, but she has carpeting in her bedroom. She has tried Flonase and Singulair in the past without any significant benefit. She saw Dr. Ballesteros over the summer because she was having nose bleeds. She has a slight deviated septum but otherwise the anatomy was unremarkable. She notes that her asthma has been pretty well controlled on Symbicort 2 puffs twice a day, but she still does feel like she gets short of breath about 2 or 3 times a week. This usually happens with exercise. nasal congestion Onset: year ago . It occurs occasionally. The problem fluctuates. Denies relieving factors. Associated symptoms include deviated septum. Pertinent negatives include headache and snoring (mild). nosebleed The patient pres ents with a nosebleed that began gradually. The patient has had , with the date of the last nosebleed being 04/29/2016. The bleeding appears to be from left nostril. The patient denies easy bruising, fever, headache or nausea. ear fullness Onset: month ago . It occurs constantly. The problem is with no change. Associated symptoms include congestion (nasal). Pertinent negatives include cough, fever, nausea and vomiting. nosebleed The patient pres ents with a nosebleed that began gradually. The problem has worsened. The patient has had , with the date of the last nosebleed being 04/17/2016. The bleeding appears to be from both nostrils. The patient is also experiencing nasal congestion and rhinitis. The patient denies diplopia, ear infections, easy bruising, fever, nausea, sore throat or tinnitus. nasal congestion Onset: gradual. Severity: moderate. It occurs in both nostrils. It occurs continuously. The problem is worsening. Associated symptoms include nasal drainage (clear) and seasonal allergies. Pertinent negatives include facial pain, food allergies and nasal drainage (posterior). rhinitis, allergic (comments) Rickey lester is a 16 year old woman with allergic rhinitis on IT who presents for a follow up visit. She started shots in 05/2014. She receives shots to Tree/Grass; Ragweed/Weed1/Weed2/Dust Mite; Cat/Dog. She had an anaphylactic reaction where she was covered in hives and required a trip to the ER to receive Epinephrine in November of 2014. Her maintenance dose was capped at Vial 4/0.25, which she had been generally tolerating well but has been developing very large (size of softballs) local reactions at the site of the shots. After her msot recent shot on 02/12, she started feeling flushed and her ears were hot, which was how her initial anaphylactic reaction last year started. She took Benadryl, which resolved her symptoms. She always takes Renetta the night before her shots. She overall feels like the shots are helping her allergy symptoms a lot, and she no longer has signficant allergy symptoms. She hasn't had to take any allergy meds for a while. She'd like to continue shots. rhinitis, allergic rhinitis, allergic Symptoms are occasional, mild and improving. The patient is also experiencing nasal congestion and sneezing. The patient denies nasal drainage and itchy eyes. Food Allergy The onset was 2 week(s) ago. The severity level is moderate. The patient reports that the symptom occurs random. The reaction is located on the throat, skin. The reaction occurred after eating apple. The patient reports not eating this food since the first reaction. The same food has been eaten previously without reaction. Associated symptoms include itching, urticaria. Pertinent negatives include abdominal pain, chest pain, cough, diarrhea, fever, nausea, shortness of breath, vomiting, wheezing. rhinitis, allergic (comments) Sy mptoms much improved on IT. Has been receiving 0.25 ml as maintenance. Slight flare of symptoms a few weeks ago. C/O congestion. PCP treated w/ floanse for a few weeks with benefit, and now off all allergy meds. Did have mild systemic reaction after last injection 5d ago. Ephraim fine 30 min after injection, but 2h later, developed warmth, flushing, hives of face, spread down to chest. No SOB or other symptoms. Resolved w/ benadryl. States she had taken Renetta on night prior to IT, as per routine. Food Allergy (comments) Allergic reaction about 2w ago. Had poppy seed bagel around 10 or 10:30 in the morning. Ate apple around 2:30. Some tingling of lip, itchy throat while eating apple, but did have a cut on her lip from her mouth guard. Around 3 p.m. started developing pronounced lip swelling that started on left lower lip where the cut was, then spread to right. Shortly thereafter, broke out in hives on legs. No GI or respiratory symptoms. Went to ED where they treated her with benadryl with resolution. Of note, patient has always previously eaten Julianna apples, many times per day, without issue. This particular apple was a Gala apple. rhinitis, allergic Symptoms are occasional, mild and improving. The patient is also experiencing sneezing. The patient denies nasal congestion, nasal drainage and itchy eyes. rhinitis, allergic (comments) Sy mptoms much improved on IT, occasional sneezing, off all meds. Had mild systemic rxn 2h after last injection. Pt took AH pre-med on morning of rxn. Ephraim fine 30 min after injection, but 2h later, developed warmth, flushing, hives of face, spread down to chest. No SOB or other symptoms. Resolved w/ benadryl. Functional Status Date Functional Assessmen t No Information Instructions Date Instruction Additional Infor yudi -Continue Xolair-Con tinue Symbicort-Albuterol as needed. 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 Will check blood tests. There may be false positives due to sensitive skin/underlying hive condition -Epinephrine auto injector in the event of an accidental exposure leading to a severe potentially life threatening reactions Related to Dermatitis due to ingested food -Due to severe react ions to previous vaccinations, would avoid Covid-19 vaccine until further evaluation with Dr. Byers through [facility]. Related to Generalized skin eruption due to drugs and medicaments taken internally -Allergen avoidance measures discussed - DUST MITE avoidance - dust mite encasements for pillows and mattresses, wash bedding materials once a week, clean floors as often as possible, remove items that collect dust from the bedroomPOLLEN avoidance - pollen counts are typically highest in the morning, keep windows closed and air conditioning on, wear sunglasses or a hat to keep pollen out of your eyes and nose, shower at the end of the day-No significant relief with nasal sprays or allergy shots in the past-Will start Xolair Related to Other allergic rhinitis -Start Xolair 300mg every 4 weeks. Risks/benefits/alternatives/side effects discussed and Cinda would like to start Xolair-Continue avoidance of known allergic triggers-Continue Zyrtec/Renetta up to 4x a day-Check labs for possible autoimmune disease Related to Idiopathic urticaria -Continue Symbicort- Pulmonology evaluation-Start Xolair Related to Moderate persistent asthma, uncomplicated -looks healthy-recul tured left will call Related to Chronic rhinitis -Avoidance of egg, m ustard, and dairy-Epipen as directed for severe allergic reactions. 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 Indications for use were discussed and technique demonstrated Related to Dermatitis due to ingested food -Skin testing today is additionally positive to MOLD and COCKROACH. Allergens that have resolved from her last testing in 2013 include CATS. The skin testing is slightly less positive to TREE POLLEN, but it is still positive. -For now, Cinda would like to continue allergy shots. She would like to find an banking paralegal near [place] instead of continuing shots at the [facility]. Will try to coordinate with an banking paralegal in the area and will send vials there. Will also decrease maintenance dosing. She's currently been on maintenance of vial 4/0.15, but will decrease maintenance dosing to vial 4/0.05 since she's still been having reactions despite taking antihistamines prior to the shots. -Over the summer, when Cinda is around, she'd like to also build up on shots to mold Related to Allergic rhinitis due to pollen Cruz-05-2017 -healing well -salin e washes through the next month-ok to gently blow - use saline prior to blowing-nml activity-rtc as needed Related to Deviated nasal septum -Continue Symbicort 160 2 puffs twice a day-Albuterol every 4-6 hours as needed for shortness of breath, cough, wheezing. Also take Albuterol 3 times a day at the first sign of an upper respiratory infection-Follow up if respiratory symptoms develop Related to Moderate persistent asthma, uncomplicated -Allergen avoidance measures reviewed- DUST MITE avoidance - dust mite encasements for pillows and mattresses, wash bedding materials once a week, clean floors as often as possible, remove items that collect dust from the bedroomPOLLEN avoidance - pollen counts are typically highest in the morning, keep windows closed and air conditioning on, wear sunglasses or a hat to keep pollen out of your eyes and nose, shower at the end of the day PET avoidance measures discussed - Allergic reactions to pets are caused by the animal's dander. Short-haired pets are not any less likely to cause a reaction than long-haired animals. Keep the pet outdoors or restrict the pet to a few rooms in the house. At the very least, keep the pet outside of the bedroom and off the bed. Wash your hands after petting the animal. Bathe your pet at least once a week to reduce dander. Vacuum carpets at least once or twice a week (consider getting a vacuum with a HEPA filter). Change air conditioning and furnace filters every 3 months-Will plan on starting Dymista 1 spray per nostril twice a day. This will be covered by Cinda's insurance starting in October, and we will call Cinda as soon as we get a sample in for her to try (hopefully next week)-Continue allergen immunotherapy (with antihistamines before hand). Ideally, we'd like to increase the dose of the shots a little bit more, but Cinda has had 2 reactions in the past that landed her in the ER, so we have to be careful with increasing the dose. Will plan on trying Dymista first, and if that is not helpful, then we will see if we can slowly increase the immunotherapy dosing (by 0.025 each week reather than 0.05) Related to Allergic rhinitis due to pollen Plan on splitting sh ot contents into 5 shots1. TREE2. GRASS3. RAGWEED/W1/W24. DUST MITE5. CAT/DOGWill decrease dose at the next shot to Vial 4/0.15, and leave that as the maintenance dose through the summer. In the fall, when her symptoms typically subside will then try to increase back up to the previously tolerated maintenance dose of Vial 4/0.25. Zyrtec 10 mg the night before the shotAllegra 180 mg the morning of the shotIce after the shots Related to Allergic rhinitis due to animal (cat) (dog) hair and dander Continue immunothera py. Will decrease dose to vial 4, 0.1 at next visit and advance every week to every other week until back to patient's maintenance dose of vial 4, 0.25 ml. Related to Allergy, Unspecified Recommend strict brennan idance of apple for now, and should have Auvi-Q available at all times. Would recommend in office challenge with Julianna apple in the future if patient is interested. Related to Dermat D/t Food Ingest Continue immunothera py. Will decrease one step, and set that as maintenance dose for next 6 months. If tolerating without issue, will try and push forward. Continue pre-med with antihistamine. Related to Rhinitis Due To Pollen Assessments Type Assessment Date No Information Patient Care Teams Name Effective Dates (start - stop) Status Members No Information
--- OUTSIDE RECORDS SUMMARY | 2024-11-02 18:34 | XMS_ITS | Continuity of Care Document ---
Author Organization [facility] Address [address] [place] [address] Phone Care Team Providers Care Senior Partner Name Role Phone Stiven Ashton MD Unavailable [...] Pt, Level III Therapeutic, Prophylactic, Diagnostic In [facility]; SQ Or IM Omalizumab (Xolair) Inj 5 [...] Estab Pt, Level III [facility]; 1/mx Antig 7 Prof Svcs For Allergen Immun, Multi Antigen Prep,Specify # Of Doses 017 Postop F/u Visit [facility] 7 Prof Svcs For Allergen Immun, Multi Antigen Prep,Specify # Of Doses - 017 Postop F/u Visit [facility] 7 Prof Svcs For Allergen Immun, Multi Antigen Prep,Specify # Of Doses - 017 Post Op Office Visit Post Op Office Visit Prof Svcs For Allergen Immun, Multi Antigen Prep,Specify # Of Doses 017 Post Op Office Visit Post Op Office Visit Septoplasty Resect Submucous Turbinate,Part/Com Repair Of Nasal Vestibular Stenosis OV, Estab Pt, Level III Prof Svcs For Allergen Immun, [facility] Antigen Prep,Specify # Of Doses 017 OV, Estab Pt, Level III Prof Svcs For Allergen Immun, [facility] Antigen Prep,Specify # Of Doses 017 Diagnostic Nasal Endoscopy OV, Estab Pt, Level III Prof Svcs For Allergen Immun, [facility] Antigen Prep,Specify # Of Doses 017 Prof Svcs For Allergen Immun, [facility] Antigen Prep,Specify # Of Doses 017 Prof Svcs For Allergen Immun, Multi Antigen Prep,Specify # Of Doses 017 Prof Svcs For Allergen Immun, [facility] Antigen Prep,Specify # Of Doses 016 Prof Svcs For Allergen Immun, Multi Antigen Prep,Specify # Of Doses 016 Spirometry W/djkqt-hb-ahvek [place] 016 OV, Estab Pt, Level III Prof Svcs For Allergen Immun, Multi Antigen Prep,Specify # Of Doses 016 Prof Svcs For Allergen Immun, Multi Antigen Prep,Specify # Of Doses 016 Prof Svcs For Allergen Immun, [facility] Antigen Prep,Specify # Of Doses 016 Prof Svcs For Allergen Immun, Multi Antigen Prep,Specify # Of Doses 016 OV, Estab Pt, Level III Diagnostic Nasal Endoscopy Prof Sv[facility] For Allergen Immun, [facility] Antigen Prep,Specify # Of Doses 016 Control [...] Doses 015 Prof Svcs For Allergen Immun, [facility] Antigen Prep,Specify # Of Doses 015 Prof [...] -2 014 Prof Sv[facility] For Allergen Immun, [facility] Antigen Prep,Specify # Of Doses -2 014 Prof Svcs For Allergen Immun, [facility] Antigen Prep,Specify # Of Doses -2 014 Prof Svcs For Allergen Immun, Multi Antigen Prep,Specify # Of Doses -2 014 Prof Svcs For Allergen Immun, [facility] Antigen Prep,Specify # Of Doses -2 014 Prof Svcs For Allergen Immun, [facility] Antigen Prep,Specify # Of Doses Jul--2 014 Prof Svcs For Allergen Immun, [facility] Antigen Prep,Specify # Of Doses -2 014 Prof Svcs For Allergen Immun, [facility] Antigen Prep,Specify # Of Doses -2 014 Prof Svcs For Allergen Immun, [facility] Antigen Prep,Specify # Of Doses - 014 Prof Svcs For Allergen Immun, [facility] Antigen Prep,Specify # Of Doses 014 Prof Svcs For Allergen Immun, [facility] Antigen Prep,Specify # Of Doses 014 Antigen Prep,Specify # Of Doses 014 Prof Svcs For Allergen Immun, [facility] Percut Allergy Skin Tests Intracutaneous Tests W/ Allergen Ex Consult, Level III /Office Advance Directives Directive Yes / No Effective Date File Name No Information Encounters Encounter Description Practice Location Reason(s) For Visit Diagnoses Date Provider Providers Copied on Encounter [facility], [address], [place], [place], [id number] , [place] tel: [phone] [facility] No Information 4 Poli Saleem. [address], [address], [place], [place], [address], [place]. tel:[phone] [facility], [address], [place], [place], [address] , [place] tel: [phone] [facility] No Information 3 Poli Saleem. [address], [address], [place], [address], [place]. tel:[phone] OV, Estab Pt, Level III [facility], [address], [place], [place], [address] , [place] tel: [phone] [facility] allergy symptoms (chief complaint)fo llow up (chief complaint) Idiopathic urticariaOthe r allergic rhinitisDerma titis due to ingested foodModerate persistent asthma, uncomplicated 3 Poli Saleem. [address], [address], [place], [place], [address], [place]. tel:[phone] Referring Provider: Alex Gamboa, [address] [facility], [place], [address]. tel:[phone] [facility], [address], [place], [place], [id number] , [place] tel: [phone] [facility] No Information 2 Poli Saleem. [address], [address], [place], [place], [address], [place]. tel:[phone] [facility], [address], [place], [place], [address] , [place] tel: [phone] [facility] Idiopathic urticaria 2 Poli Saleem. [address], [address], [place], [address], [place]. tel:[phone] Referring Provider: Alex Gamboa, [address] [place] [address], [address]. tel:[phone] [facility], [address], [place], [place], [address] , [place] tel: [phone] [facility] No Information 2 Poli Saleem. [address] , [facility] [place], [address], [place]. tel:[phone] OV, New Pt, Level IV [facility], [address], [place], [place], [address] , [place] tel: [phone] [facility] allergy symptoms (chief complaint)fo llow up (chief complaint) Dermatitis due to ingested foodOther allergic rhinitisIdiop athic urticariaGene ralized skin eruption due to drugs and medicaments taken internallyMod erate persistent asthma, uncomplicated Allergic rhinitis, unspecifiedAl lergic rhinitis due to food 2 Poli Saleem. [address] , [address], [place], [address], [place]. tel:[phone] Referring Provider: Alex Gamboa, [address] [place] [address], [address]. tel:[phone] OV, Estab Pt, Level III [facility], [address], [place], [place], [address] , [place] tel: [phone] [facility] nasal congestion (chief complaint)Po stnasal drip (chief complaint) Chronic rhinitis 9 Lesli Venegas. [address], [address], [place], [place], [id number], [place]. [phone] Referring Provider: Alex Gamboa, [facility], [place], [address]. tel:[phone] OV, Estab Pt, Level III [facility], [address], [place], [place], [address] , [place] tel: [phone] [facility] nasal congestion (chief complaint)Po stnasal drip (chief complaint) Allergic rhinitis due to pollenChronic rhinitisHyper trophy of nasal turbinates 9 Lesli Venegas. [address] [facility], [address], [id number], [place]. [phone] Referring Provider: Perla Fajardo, [address] [place], [address]. tel:[phone] OV, Estab Pt, Level III [facility], [address], [place], [place], [address] , [place] tel: [phone] [facility] allergy symptoms (chief complaint)fo llow up (chief complaint) Dermatitis due to ingested foodAllergic rhinitis due to pollenAllergi c rhinitis due to food 8 Poli Saleem. [address] [facility], [address], [place], [address], [place]. tel:[phone] Referring Provider: Perla Fajardo, [address] [place], [address]. tel:[phone] OV, Estab Pt, Level III [facility], [address], [place], [place], [address] , [place] tel: [phone] [facility] nosebleed (chief complaint) Allergic rhinitis, unspecifiedEp istaxis 8 Lesli Venegas. [address] [facility] [address], [address], [place], [address], [place]. tel:[phone] Referring Provider: Perla Scotty, [address], [place], [address]. tel:[phone] OV, Estab Pt, Level III [facility], [address], [place], [place], [address] , [place] tel: [phone] [facility] nasal congestion (chief complaint)no sebleed (chief complaint) Allergic rhinitis, unspecifiedEp istaxis Lesli Venegas. [address], [address], [place], [place], [address], [place]. tel:[phone] Referring Provider: Alxe Gamboa, [address] [place] [address], [address]. tel:[phone] [facility], [address], [place], [place], [address] , [place] tel: [phone] [facility] No Information Poli Saleem. [address] [facility], [address], [place], [address], [place]. tel:[phone] OV, Estab Pt, Level III [facility], [address], [place], [place], [address] , [place] tel: [phone] [facility] allergy symptoms (chief complaint) Allergic rhinitis due to pollenDermati tis due to ingested foodOther allergic rhinitisAller gic rhinitis, unspecifiedAl lergic rhinitis due to food 7 Poli Saleem. [address] [facility], [address], [place], [address], [place]. tel:[phone] Referring Provider: Alex Gamboa, [address] [place] [address], [address]. tel:[phone] [facility], [address], [place], [place], [address] , [place] tel: [phone] [facility] post-operati ve visit (chief complaint) Deviated nasal septum Lesli Venegas. [address] [facility], [address], [place], [address], [place]. tel:[phone] Referring Provider: Perla Fajardo, [address] [place], [address]. tel: [phone] [facility], [address], [place], [place], [address] , [place] tel: [phone] [facility] Allergic rhinitis due to pollen No Information [facility], [address], [place], [place], [address] , [place] tel: [phone] [facility] Allergic rhinitis due to pollenOther allergic rhinitisAller gic rhinitis due to animal (cat) (dog) hair and dander Poli Saleem. [address] [facility], [address], [place], [address], [place]. tel:[phone] Referring Provider: Alex Gamboa, [facility], [place], [address]. tel:[phone] [facility], [address], [place], [place], [address] , [place] tel: [phone] [facility] post-operati ve visit (chief complaint) Deviated nasal septum Lesli Venegas. [address] [facility] [address] , [address], [place], [address], [place]. tel:[phone] Referring Provider: Perla Fajardo, [address] [place], [address]. tel:[phone] [facility], [address], [place], [place], [address] , [place] tel: [phone] [facility] Allergic rhinitis due to pollenOther allergic rhinitisAller gic rhinitis due to animal (cat) (dog) hair and dander 8 7 Lesli Venegas. [address] [facility], [address], [id number], [place]. tel: [phone] Referring Provider: Perla Fajardo, [address] [place], [address]. tel: [phone] [facility], [address], [place], [place], [address] , [place] tel: [phone] [facility] post-operati ve visit (chief complaint) Deviated nasal septum 7 Lesli Venegas. [address] [facility], [address], [id number], [place]. tel: [phone] Referring Provider: Alex Gamboa, [address] [place] [address], [facility]. tel: [phone] [facility], [address], [place], [place], [address] , [place] tel: [phone] [facility] Allergic rhinitis due to pollenOther allergic rhinitisAller gic rhinitis due to animal (cat) (dog) hair and dander 0 7 Poli Saleem. [address] [facility], [address], [place], [address], [place]. tel:[phone] Referring Provider: Alex Gamboa, [address] [place] [address], [address]. tel: [phone] [facility], [address], [place], [place], [address] , [place] tel: [phone] [facility] post-operati ve visit (chief complaint) Deviated nasal septum 7 Lesli Venegas. [address] [facility], [address], [place], [address], [place]. tel:[phone] Referring Provider: Perla Fajardo, [address] [place], [address]. tel:[phone] [facility], [address], [place], [place], [address] , [place] tel: [phone] [facility] post-operati ve visit (chief complaint) Deviated nasal septum 0- 7 Lesli Venegas. [address] [facility], [facility] [address], [place], [address], [place]. tel:[phone] Referring Provider: Alex Gamboa, [address] [place] [address], [address]. tel:[phone] [facility], [address], [place], [address] , [place] tel: [phone] [facility] Allergic rhinitis due to pollenOther allergic rhinitisAller gic rhinitis due to animal (cat) (dog) hair and dander 7 Poli Saleem. [address] [facility], [address], [place], [address], [place]. tel:[phone] Referring Provider: Alex Gamboa, [address] [place] [address], [address]. tel:[phone] [facility], [address] [place] [address], [id number] , [place] tel: [phone] [facility] post-operati ve visit (chief complaint) Deviated nasal septum 7 Lesli Venegas. [address] [facility], [address], [place], [address], [place]. tel:[phone] Referring Provider: Alex Gamboa, [address] [place] [address], [address]. tel:[phone] [facility], [address], [place], [address] , [place] tel: [phone] [facility] Deviated nasal septumHypertr ophy of nasal turbinatesOth er specified disorders of nose and nasal sinuses 7 Lesli Venegas. [address], [address], [place], [address], [place]. tel:[phone] [facility], [address], [place], [place], [address] , [place] tel: [phone] [facility] Deviated nasal septum 7 Lesli Venegas. [address], [facility] [place], [place], [address], [place]. tel:[phone] Referring Provider: Perla Fajardo, [address] [place], [address]. tel:[phone] [facility], [address], [place], [place], [address] , [place] tel: [phone] [facility] No Information 7 Lesli Venegas. [address] [facility], [address], [id number], [place]. tel:[phone] Referring Provider: Alex Gamboa, [address] [place] [address], [address]. tel:[phone] OV, Estab Pt, Level III [facility], [address], [place], [place], [address] , [place] tel: [phone] [facility] nasal congestion (chief complaint)Na otto obstruction (chief complaint) Deviated nasal septumHypertr ophy of nasal turbinatesOth er specified disorders of nose and nasal sinuses 0 7 Lesli Venegas. [address] [facility] [address], [facility] [address], [place], [address], [place]. tel:[phone] Referring Provider: Alex Gamboa, [address] [place] [address], [address]. tel:[phone] [facility], [address], [place], [place], [address] , [place] tel: [phone] [facility] Allergic rhinitis due to pollenOther allergic rhinitisAller gic rhinitis due to animal (cat) (dog) hair and dander Apr-2 7 Poli Saleem. [address] [facility], [address], [place], [address], [place]. tel:[phone] Referring Provider: Alex Gamboa, [address] [place] [address], [facility]. tel:[phone] OV, Estab Pt, Level III [facility], [address] [place] [address], [id number] , [place] tel: [phone] [facility] nasal congestion (chief complaint)Na otto obstruction (chief complaint) Allergic rhinitis due to animal (cat) (dog) hair and danderNasal congestionOth er specified disorders of nose and nasal sinusesHypert rophy of nasal turbinatesDev iated nasal septum Apr-2 7 Lesli Venegas. [address] [facility], [address], [place], [place], [address], [place]. tel:[phone] Referring Provider: Alex Gamboa, [address] [place] [address], [facility]. tel:[phone] [facility], [address] [place] [address], [id number] , [place] tel: [phone] [facility] Allergic rhinitis due to pollenOther allergic rhinitisAller gic rhinitis due to animal (cat) (dog) hair and dander Apr-0 7 Poli Saleem. [address], [address], [place], [address], [place]. tel:[phone] Referring Provider: Perla Fajardo, [address] [place], [address]. tel:[phone] OV, Estab Pt, Level III [facility], [address] [place] [address], [id number] , [place] tel: [phone] [facility] nasal congestion (chief complaint)Na otto obstruction (chief complaint) Deviated nasal septumHypertr ophy of nasal turbinatesOth er specified disorders of nose and nasal sinusesNasal congestion 7 Lesli Venegas. [address] [facility] [address], [address], [place], [place], [address], [place]. tel:[phone] Referring Provider: Perla Fajardo, [address], [place], [address]. tel:[phone] [facility], [address], [place], [place], [address] , [place] tel: [phone] [facility] Allergic rhinitis due to pollenOther allergic rhinitisAller gic rhinitis due to animal (cat) (dog) hair and dander Poli Saleem. [address] , [address], [place], [address], [place]. tel:[phone] Referring Provider: Alex Gamboa, [address] [place] [address], [address]. tel:[phone] [facility], [address], [place], [place], [address] , [place] tel: [phone] [facility] Allergic rhinitis due to pollenOther allergic rhinitisAller gic rhinitis due to animal (cat) (dog) hair and dander 7 Poli Saleem. [address] , [address], [place], [address], [place]. tel:[phone] Referring Provider: Alex Gamboa, [address] [place] [address], [address]. tel:[phone] [facility], [address], [place], [place], [address] , [place] tel: [phone] [facility] Allergic rhinitis due to pollenOther allergic rhinitisAller gic rhinitis due to animal (cat) (dog) hair and dander 7 Poli Saleem. [address] , [address], [place], [address], [place]. tel: [phone] Referring Provider: Alex Gamboa, [address] [place], [address]. tel: [phone] [facility], [address], [place], [place], [address] , [place] tel: [phone] [facility] Allergic rhinitis due to pollenOther allergic rhinitisAller gic rhinitis due to animal (cat) (dog) hair and dander 6 Poli Saleem. [address], [address], [place], [address], [place]. tel: [phone] Referring Provider: Casi Samuels, [address] [place], [address]. tel: [phone] OV, Estab Pt, Level III [facility], [address], [place], [place], [address] , [place] tel: [phone] [facility] allergy symptoms (chief complaint) Allergic rhinitis due to pollenAllergi c rhinitis due to animal (cat) (dog) hair and danderModerat e persistent asthma, uncomplicated Other allergic rhinitis 6 Poli Saleem. [address], [address], [place], [address], [place]. tel:[phone] Referring Provider: Alex Gamboa, [address] [place], [address]. tel: [phone] [facility], [address], [place], [place], [address] , [place] tel: [phone] [facility] Allergic rhinitis due to pollenOther allergic rhinitisAller gic rhinitis due to animal (cat) (dog) hair and dander 6 Poli Saleem. [address], [address], [place], [address], [place]. tel:[phone] Referring Provider: Alex Gamboa, [address] [place], [address]. tel: [phone] [facility], [address], [place], [place], [address] , [place] tel: [phone] [facility] Allergic rhinitis due to pollenOther allergic rhinitisAller gic rhinitis due to animal (cat) (dog) hair and dander 6 Poli Saleem. [address], [address], [place], [place], [address], [place]. tel: [phone] Referring Provider: Alex Gamboa, [address] [place] [address], [address]. tel: [phone] [facility], [address], [place], [place], [address] , [place] tel: [phone] [facility] Allergic rhinitis due to pollenOther allergic rhinitisAller gic rhinitis due to animal (cat) (dog) hair and dander 6 Poli Saleem. [address], [address], [place], [place], [address], [place]. tel: [phone] Referring Provider: Alex Gamboa, [address] [place] [address], [address]. tel: [phone] [facility], [address], [place], [place], [address] , [place] tel: [phone] [facility] Allergic rhinitis due to pollenOther allergic rhinitisAller gic rhinitis due to animal (cat) (dog) hair and dander 6 Poli Saleem. [address], [address], [place], [place], [address], [place]. tel:[phone] Referring Provider: Alex Gamboa, [address] [place] [address], [address]. tel: [phone] OV, Estab Pt, Level III [facility], [address], [place], [place], [address] , [place] tel: [phone] [facility] nosebleed (chief complaint)na otto congestion (chief complaint) Deviated nasal septumEpistax isHypertrophy of nasal turbinatesHyp ertrophy of adenoids 6 Lesli Venegas. [address] [facility] [address] , [address], [id number], [place]. tel: [phone] Referring Provider: Alex Samuels W, [address] [facility], [place], [address]. tel: [phone] [facility], [address], [place], [place], [address] , [place] tel: [phone] [facility] No Information 6 Poli Saleem. [address] , [address], [id number], [place]. tel: [phone] OV, Estab Pt, Level III [facility], [address], [place], [place], [address] , [place] tel: [phone] [facility] nasal congestion (chief complaint)no sebleed (chief complaint)ea r fullness (chief complaint) Deviated nasal septumHypertr ophy of nasal turbinatesEpi staxisImpacte d cerumen, bilateral 6 Lesli Venegas. [address] [facility], [facility] [place], [place], [address], [place]. tel: [phone] Referring Provider: Casi Samuels, [address] [place], [address]. tel: [phone] [facility], [address], [place], [place], [address] , [place] tel: [phone] [facility] No Information 6 Poli Saleem. [address] , [address], [place], [place], [address], [place]. tel: [phone] OV, Estab Pt, Level III [facility], [address], [place], [place], [address] , [place] tel: [phone] [facility] rhinitis, allergic (chief complaint) Allergic rhinitis due to animal (cat) (dog) hair and danderAllergi c rhinitis due to pollenOther allergic rhinitis 6 Poli Saleem. [address], [address], [place], [address], [place]. tel:[phone] Referring Provider: Casi Samuels, [address] [place], [address]. tel:[phone] [facility], [address], [place], [place], [address] , [place] tel: [phone] [facility] No Information 6 Poli Saleem. [address], [address], [place], [address], [place]. tel:[phone] [facility], [address], [place], [place], [address] , [place] tel: [phone] [facility] No Information 6 Poli Saleem. [address], [address], [place], [place], [address], [place]. tel:[phone] Referring Provider: Casi Samuels, [address] [place], [address]. tel: [phone] [facility], [address], [place], [place], [address] , [place] tel: [phone] [facility] No Information 6 Poli Saleem. [address], [address], [place], [address], [place]. tel:[phone] Referring Provider: Casi Samuels, [address] [place], [address]. tel:[phone] [facility], [address], [place], [place], [address] , [place] tel: [phone] [facility] No Information 6 Poli Saleem. [address], [address], [place], [place], [address], [place]. tel: [phone] [facility], [address] [address], [place], [place], [id number] , [place] tel: [phone] [facility] No Information 6 Simona Thomas. [address], [address], [place], [address], [place]. tel: [phone] [facility], [address], [place], [place], [address] , [place] tel: [phone] [facility] No Information 6 Poli Saleem. [address], [address], [place], [place], [address], [place]. tel: [phone] Referring Provider: Stiven Ashton MD, [address], [place], [address]. tel: [phone] [facility], [address], [place], [place], [address] , [place] tel: [phone] [facility] No Information 6 Adriano Brandt. [address], [address], [place], [place], [id number], [place]. tel: [phone] Referring Provider: Casi Samuels, [address] [facility] [place], [address]. tel: [phone] [facility], [address], [place], [place], [address] , [place] tel: [phone] [facility] No Information 6 Adriano Brandt. [address] [facility], [address], [id number], [place]. tel: [phone] [facility], [address], [place], [place], [address] , [place] tel: [phone] [facility] No Information 5 Simona Thomas. [address] [facility] [address] , [address], [id number], [place]. tel: [phone] [facility], [address], [place], [place], [address] , [place] tel: [phone] [facility] No Information 5 Adriano Brandt. [address] [facility], [address], [id number], [place]. tel: [phone] [facility], [address], [place], [place], [address] , [place] tel: [phone] [facility] No Information 5 Lesli Venegas. [address] [facility], [address], [id number], [place]. tel: [phone] Referring Provider: Casi Samuels, [facility] [place], [address]. tel: [phone] [facility], [address], [place], [place], [address] , [place] tel: [phone] [facility] No Information 5 Simona Thomas. [address] [facility] [address] , [facility] [place], [address], [place]. tel: [phone] [facility], [address], [place], [place], [address] , [place] tel: [phone] [facility] Allergic rhinitis due to pollenOther allergic rhinitisAller gic rhinitis due to animal (cat) (dog) hair and dander 5 Simona Thomas. [address] [facility] [address], [address], [place], [place], [address], [place]. tel: [phone] [facility], [address], [place], [place], [address] , [place] tel: [phone] [facility] No Information Jun- 5 Poli Saleem. [address], [address], [place], [place], [address], [place]. tel: [phone] OV, Estab Pt, Level III [facility], [address], [place], [place], [address] , [place] tel: [phone] [facility] rhinitis, allergic (chief complaint)Fo od Allergy (chief complaint) Dermat D/t Food IngestAllergy , UnspecifiedRh initis Due To Pollen Jun- 5 Katelyn Stroud. [address] [place] [address] Rd [address], [place], [place], [address], [place]. tel: [phone] [facility], [address], [place], [place], [address] , [place] tel: [phone] [facility] No Information 5 Poli Saleem. [address], [address], [place], [place], [address], [place]. tel: [phone] Referring Provider: Rikki Oh MD, [address], [place], [address]. tel: [phone] [facility], [address], [place], [place], [address] , [place] tel: [phone] [facility] No Information 5 Sav Venegas. [address] [facility], [address] [place] [address], [id number], [place]. tel:[phone] Referring Provider: Casi Samuels, [address] [place], [address]. tel:[phone] [facility], [address], [place], [place], [address] , [place] tel: [phone] [facility] No Information 5 Sav Venegas. [address] [facility], [address], [id number], [place]. tel:[phone] Referring Provider: Casi Samuels, [address] [place], [address]. tel:[phone] [facility], [address], [place], [place], [address] , [place] tel: [phone] [facility] No Information 5 Katelyn Stroud. [address] [place] [address] [address], [place], [place], [address], [place]. tel:[phone] [facility], [address], [place], [place], [address] , [place] tel: [phone] [facility] No Information 5 Sav Venegas. [address], [address], [place], [address], [place]. tel:[phone] [facility], [address], [place], [place], [address] , [place] tel: [phone] [facility] No Information 5 Sav Venegas. [address] [facility] [address], [address], [place], [address], [place]. tel:[phone] [facility], [address], [place], [place], [address] , [place] tel: [phone] [facility] No Information 0- 5 Sav Venegas. [address], [address], [id number], [place]. tel: [phone] OV, Estab Pt, Level III [facility], [address], [place], [place], [address] , [place] tel: [phone] [facility] rhinitis, allergic (chief complaint) Rhinitis Due To Pollen Jan-2 5 Katelyn Stroud. [address] [place] [address] [address], [place], [place], [address], [place]. tel: [phone] Referring Provider: Casi Samuels, [address] [place] [address], [address]. tel: [phone] [facility], [address], [place], [place], [address] , [place] tel: [phone] [facility] No Information 5 Sav Venegas. [address], [address], [id number], [place]. tel: [phone] [facility], [address], [place], [place], [address] , [place] tel: [phone] [facility] No Information 5 Sav Venegas. [address], [facility] [place], [address], [place]. tel: [phone] [facility], [address], [place], [place], [address] , [place] tel: [phone] [facility] No Information 0 6 5 Katelyn Stroud. [address] [facility] [address], [place], [place], [address], [place]. tel: [phone] [facility], [address], [place], [place], [address] , [place] tel: [phone] [facility] No Information 5 Katelyn Stroud. [address] [address], [place], [place], [address], [place]. tel: [phone] [facility], [address], [place], [place], [address] , [place] tel: [phone] [facility] No Information 5 Simona Thomas. [address] [facility], [address], [id number], [place]. tel: [phone] [facility], [address], [place], [place], [address] , [place] tel: [phone] [facility] No Information 5 Lesli Venegas. [address] [facility], [address], [id number], [place]. tel: [phone] [facility], [address], [place], [place], [address] , [place] tel: [phone] [facility] No Information 5 Sav Venegas. [address], [facility] [place], [address], [place]. tel: [phone] [facility], [address], [place], [place], [address] , [place] tel: [phone] [facility] No Information 0 5 Katelyn Stroud. [address] [place] [address] Rd [address], [place], [place], [address], [place]. tel: [phone] [facility], [address], [place], [place], [address] , [place] tel: [phone] [facility] No Information 5 Katelyn Stroud. [address] [facility] [address], [place], [place], [address], [place]. tel: [phone] [facility], [address], [place], [place], [address] , [place] tel: [phone] [facility] No Information 5 Katelyn Stroud. [address] [facility] [address], [place], [place], [address], [place]. tel: [phone] [facility], [address], [place], [place], [address] , [place] tel: [phone] [facility] No Information 5 Katelyn Stroud. [address] [facility] [address], [place], [place], [address], [place]. tel: [phone] Referring Provider: Luanne Zepeda MD, [address] [facility] [address] [place], [address]. tel: [phone] [facility], [address], [place], [place], [address] , [place] tel: [phone] [facility] No Information 5 Katelyn Stroud. [address] [facility] [address], [place], [place], [address], [place]. tel: [phone] [facility], [address], [place], [place], [address] , [place] tel: [phone] [facility] No Information 5 Katelyn Riosin. [address] [facility] [address], [place], [place], [address], [place]. tel:[phone] Referring Provider: Radha Otero, [address] [place] [address], [address]. tel:[phone] [facility], [address], [place], [place], [address] , [place] tel: [phone] [facility] No Information 5 Katelyn Riosin. [address] [facility] [address], [place], [place], [address], [place]. tel:[phone] [facility], [address], [place], [place], [address] , [place] tel: [phone] [facility] No Information 5 Katelyn Riosin. [address] [facility] [address], [place], [place], [address], [place]. tel:[phone] [facility], [address], [place], [place], [address] , [place] tel: [phone] [facility] No Information 5 Katelyn Stroud. [address] [facility] [address], [place], [place], [address], [place]. tel: [phone] [facility], [address], [place], [place], [address] , [place] tel: [phone] [facility] No Information 5 Katelyn Riosin. [address] [facility] [address], [place], [place], [address], [place]. tel: [phone] [facility], [address], [place], [place], [address] , [place] tel: [phone] [facility] No Information 4 Katelyn Riosin. [address] [facility] [address], [place], [place], [address], [place]. tel: [phone] [facility], [address], [place], [place], [address] , [place] tel: [phone] [facility] No Information 4 Katelyn Riosin. [address] [facility] [address], [place], [place], [address], [place]. tel: [phone] [facility], [address], [place], [place], [address] , [place] tel: [phone] [facility] No Information 4 Katelyn Riosin. [address] [facility] [address], [place], [place], [address], [place]. tel: [phone] [facility], [address], [place], [place], [address] , [place] tel: [phone] [facility] No Information 4 Katelyn Stroud. [address] [facility] [address], [place], [place], [address], [place]. tel: [phone] [facility], [address], [place], [place], [address] , [place] tel: [phone] [facility] No Information 4 Katelyn Riosin. [address] [facility] [address], [place], [place], [address], [place]. tel: [phone] [facility], [address], [place], [place], [address] , [place] tel: [phone] [facility] No Information 4 Katelyn Riosin. [address] [facility] [address], [place], [place], [address], [place]. tel: [phone] [facility], [address], [place], [place], [address] , [place] tel: [phone] [facility] No Information 4 Katelyn Stroud. [address] [facility] [address], [place], [place], [address], [place]. tel: [phone] [facility], [address], [place], [place], [address] , [place] tel: [phone] [facility] No Information 4 Katelyn Stroud. [address] [facility] [address], [place], [place], [address], [place]. tel: [phone] [facility], [address], [place], [place], [address] , [place] tel: [phone] [facility] No Information 4 Katelyn Stroud. [address] [facility] [address], [place], [place], [address], [place]. tel: [phone] [facility], [address], [place], [place], [address] , [place] tel: [phone] [facility] No Information 4 Katelyn Stroud. [address] [facility] [address], [place], [place], [address], [place]. tel: [phone] [facility], [address], [place], [place], [address] , [place] tel: [phone] [facility] No Information 8 4 Katelyn Riosin. [address] [facility] [address], [place], [place], [address], [place]. tel:[phone] [facility], [address], [place], [place], [address] , [place] tel: [phone] [facility] No Information 0 1 4 Katelyn Stroud. [address] [facility] [address], [place], [place], [address], [place]. tel: [phone] [facility], [address], [place], [place], [address] , [place] tel: [phone] [facility] No Information 4 Katelyn Riosin. [address] [facility] [address], [place], [place], [address], [place]. tel: [phone] [facility], [address], [place], [place], [address] , [place] tel: [phone] [facility] No Information 0 4 Katelyn Stroud. [address] [facility] [address], [place], [place], [address], [place]. tel: [phone] [facility], [address], [place], [place], [address] , [place] tel: [phone] [facility] No Information 4 Katelyn Stroud. [address] [facility] [address], [place], [place], [address], [place]. tel:[phone] [facility], [address], [place], [place], [address] , [place] tel: [phone] [facility] No Information 4 Katelyn Stroud. [address] [facility] [address], [place], [place], [address], [place]. tel: [phone] [facility], [address], [place], [place], [address] , [place] tel: [phone] [facility] No Information 4 Katelyn Stroud. [address] [facility] [address], [place], [place], [address], [place]. tel: [phone] Consult, Level III /Office [facility], [address], [place], [place], [address] , [place] tel: [phone] [facility] Rhinitis (A) (chief complaint)Ur ticaria/Sandy oedema (chief complaint) Rhinitis Due To Pollen 4 Katelyn Stroud. [address] [facility] [address], [place], [place], [address], [place]. tel: [phone] Referring Provider: Rikki Oh MD, [address], [place], [address]. tel: [phone] [facility], [address], [place], [place], [address] , [place] tel: [phone] [facility] Allergic Rhinitis NosHypertroph y T And A 1 Adriano Brandt. [address], [address], [place], [place], [address], [place]. tel:[phone] Referring Provider: Casi Samuels, [address], [place], [address]. tel:[phone] Family History Family Member Type Diagnosis Age At Onset Mother Problem (finding) raised blood lipids Family H /O Problem (finding) Cancer, breast Mother Problem (finding) hypertension Mother Problem (finding) Thyroid disease Father Problem (finding) Allergies Mother Problem (finding) Hearing loss Father Problem (finding) hypertension Father Problem (finding) raised blood lipids Payers Payer name Insurance type Covered green party ID Authormerna tibeverly(s) No Information Social History Type Description Quantity Date Captured Comments Sex Female Smoking Status No Information Chief Complaint And Reason For Visit No Information Reason For Referral Reason For Referral No Information Plan Of Treatment Date Type Action Status Future Order: Lab Order Aerobic Bacterial Culture ([id number]), Collected on: , Sent on: Sent History [...] almonst immediate diarrhea. She'll be seeing a sand mixer machine in December. PREVIOUS HPI: (12/13/2017) FOLLOW UP [...] the shots. Since she's been at school ([employer] in [facility]), she gets her shots at the [facility]. It's been difficult for her to [...] the shots. Since she's been at school ([employer] in [facility]), she gets her shots at the [facility]. It's been difficult for her to [...] almonst immediate diarrhea. She'll be seeing a sand mixer machine in December. allergy symptoms nosebleed The patient [...] the shots. Since she's been at school ([employer] [employer] in [facility]), she gets her shots at the [facility]. It's been difficult for her to [...] systemic reaction after last injection 5d ago. Hunter fine 30 min after injection, but 2h [...] took AH pre-med on morning of rxn. Hunter fine 30 min after injection, but 2h [...] until further evaluation with Dr. Byers through [place]. Related to Generalized skin eruption due to [...] to milk and casein) -Follow up with sand mixer machine as well re: GI symptoms Related to [...] shots. She would like to find an documentation spec near [place] instead of continuing shots at the [facility]. Will try to coordinate with an documentation spec in the area and will send vials [...]
[2024-11-02 19:28] VITALS: BP 124/74; PULSE 82; RESP 18; TEMP 36.9; O2SAT 98
[2024-11-02 19:48] VITALS: BP 124/74; PULSE 82; RESP 18; TEMP 36.9; O2SAT 98
== END 2024-11-02 19:49 | disposition home or self-care (01) ==
PROVIDERS: Emergency Provider Student in an Organized Health Care Education/Training Program; PCP Internal Medicine
DX: T78.40XA Allergy, unspecified, initial encounter (principal); L50.9 Urticaria, unspecified; X58.XXXA Exposure to other specified factors, initial encounter
CPT/HCPCS: 99283

== ENCOUNTER 2025-03-09 20:37 | Emergency (ER) | payer OTHER, SELFPAY ==
[2025-03-09 20:43] VITALS: BP 135/67; PULSE 88; RESP 20; TEMP 37; O2SAT 100; BMI 39.3
--- OUTSIDE RECORDS SUMMARY | 2025-03-09 20:59 | XMS_ITS | Clinical Summary ---
Author Organization [address] Address [address] [place] [phone] Phone Care Team Providers Care Rn Hemodialysis Name Role Phone Glenn Max MD Primary Care Provider Allergies Active Allergy Reactions Criticality Noted Date Comments Azithromycin Anaphylaxis High 08/09/2024 ??Date Noted: 04/05/2021 ?? Reaction(s):6 - Anaphylaxis ?7 - Hives/Urticaria ?Z-pack Bee Pollen Anaphylaxis,Hives High 04/05/2021 Z-pack Ibuprofen Anaphylaxis,Hives High 04/05/2021 Naproxen Sodium Anaphylaxis,Hives High 04/05/2021 Medications albuterol HFA (PROAIR HFA ; PROVENTIL HFA ; VENTOLIN HFA) 90 mcg/actuation inhaler Inhale 2 puffs by mouth every 4 (four) hours if needed for wheezing. 3 Active rosuvastatin (CRESTOR) 10 mg tablet Take 1 tablet (10 mg total) by mouth 1 (one) time each day. 4 Active venlafaxine XR (EFFEXOR-XR) 75 mg 24 hr capsule Take 1 capsule (75 mg total) by mouth 1 (one) time each day. 4 Active EPINEPHrine (EPIPEN) 0.3 mg/0.3 mL injection Inject 0.3 mL (0.3 mg total) into the thigh if needed for anaphylaxis. 2 each 5 Active tirzepatide, weight loss, (Zepbound) 2.5 mg/0.5 mL injection Inject 0.5 mL (2.5 mg total) under the skin every 7 (seven) days. 2 mL 5 Active famotidine (PEPCID) 20 mg tablet Take 1 tablet (20 mg total) by mouth 2 (two) times a day. 5 Active fluticasone propionate (FLONASE) 50 mcg/actuation nasal spray Administer 1 spray into each nostril 2 (two) times a day. 5 Active azelastine (ASTELIN) 137 mcg (0.1 %) nasal spray USE 1-2 SPRAYS IN EACH NOSTRIL TWICE A DAY. 5 Active norethindrone (EVER,Zohreh MCCRAY,MICRONOR ) 0.35 mg tablet Take 1 tablet (0.35 mg total) by mouth 1 (one) time each day. 90 tablet 3 5 02/03/20 26 Active tirzepatide, weight loss, (Zepbound) 2.5 mg/0.5 mL solution Inject 2.5 mg under the skin every 7 (seven) days. 2 mL 5 Active Tirosint 125 mcg capsuleIndicati ons:Hypothyroid ism, unspecified type Take 1 capsule (125 mcg total) by mouth 1 (one) time each day. Tirosint brand only, no alternates 30 capsule 11 5 Active tirzepatide, weight loss, (Zepbound) 2.5 mg/0.5 mL solution Inject 2.5 mg under the skin every 7 (seven) days. 2 mL 5 02/09/20 25 Discontin ued(Reord er) Tirosint 125 mcg capsuleIndicati ons:Hypothyroid ism, unspecified type Take 1 capsule (125 mcg total) by mouth 1 (one) time each day. Tirosint brand only, no alternates 30 capsule 1 5 02/11/20 25 Discontin ued(Reord er) Active Problems Problem Noted Date Diagnosed Date Hypothyroidism 09/23/2024 Anxiety and depression 01/07/2023 Asthma 01/07/2023 Attention deficit disorder 01/07/2023 Closed displaced fracture of navicular bone of r ight foot 01/07/2023 Elevated blood pressure read ing without diagnosis of hypertension 01/07/2023 Intractable migraine with aura without status mi grainosus 01/07/2023 Other hyperlipidemia 01/07/2023 Resolved Problems Problem Noted Date Diagnosed Date Resolved Date Hyperthyroidism 05/12/2024 09/23/2024 Encounters Date Type Department Care Team Description 02/08/2025 Telephone Endocrinology - [address] [phone] Malinda Marsh PA prior authorization 02/03/2025 2:30 PM EDT Office Visit Obstetrics and Gynecology - [address] [phone] Sandra Duncan CNM Encounter for gynecological examination without abnormal finding (Primary Dx); Surveillance for control, oral contraceptives 01/24/2025 4:00 PM EDT Office Visit Orthopedics - [address] [phone] Giovani Bergeron PA Patellar contusion, right, initial encounter (Primary Dx) 01/24/2025 Telephone Endocrinology - [address] [phone] Malinda Marsh PA Medication Problem 01/21/2025 Telephone Orthopedics - [address] [phone] Giovani Bergeron PA 01/19/2025 3:52 PM EDT - 01/19/2025 11:59 PM EDT Hospital Encounter Radiology Department - [address] [phone] Internal derangement of right knee Discharge Disposition: Home or Self Care 01/07/2025 3:30 PM EDT Consult Orthopedics - [address] [phone] Giovani Bergeron PA Internal derangement of right knee (Primary Dx) 01/04/2025 3:09 PM EDT - 01/04/2025 11:59 PM EDT Hospital Encounter Xray - [address] [phone] Discharge Disposition: Home or Self Care 01/04/2025 2:45 PM EDT Office Visit Walk-In Clinic - [address] [phone] Dave Ruelas MD Acute pain of right knee (Primary Dx) 12/29/2024 Telephone Endocrinology [address] [phone] Malinda Marsh PA PRIOR AUTHORIZATION 12/22/2024 3:45 PM EST Office Visit [address] [phone] Malinda Marsh PA Hypothyroidism, unspecified type (Primary Dx) 12/13/2024 6:53 PM EST - 12/13/2024 11:59 PM EST Hospital Encounter Radiology Department - [address] [phone] Acute maxillary sinusitis, recurrence not specified; Acute cough; Chest discomfort; Urinary urgency Discharge Disposition: Home or Self Care 12/13/2024 2:18 PM EST - 12/13/2024 11:59 PM EST Hospital Encounter XRAY - [address] [phone] Acute maxillary sinusitis, recurrence not specified; Acute cough; Chest discomfort; Urinary urgency Discharge Disposition: Home or Self Care 12/13/2024 2:00 PM EST Office Visit Adult Medicine [address] [phone] Rafa Armenta PA Acute maxillary sinusitis, recurrence not specified (Primary Dx); Acute cough; Chest discomfort; Urinary urgency from Last 3 Months Immunizations Name Administration Dates Next Due Td Tetanus diptheria (Tdvax) 7yo and older 09/18 Surgical History Surgery Date Site/Laterality Comments OTHER SURGICAL HISTORY PROCEDURE: [place] RHINOPLASTY PRIMARY W/MAJOR SEPTAL REPAIR; COMMENT: septoplasty FOOT SURGERY Right PROCEDURE: HISTORICAL FOOT SURGERY; COMMENT: sep 2022, navicular bone fracture, followed by [facility] Medical History Medical History Date Comments Elevated cholesterol DX:Elevated cholesterol Asthma DX:Asthma Anxiety and depression DX:Anxiet y and depression Elevated blood pressure reading DX:Elevated blood pressure reading Migraines DX:Migraines; CO MMENT: with aura Hyperthyroidism 05/12/2024 Family History Medical History Relation Name Comments Hyperlipidemia Father Hyperlipidemia Father's side Heart attack Maternal Grandfather Breast cancer Maternal Grandmother Asthma Mother Hyperlipidemia Mother Other: Other Mother BRCA negative, AVR, pacemaker Diabetes Mother's side Breast cancer Paternal Grandmother Colon cancer Uncle Ovarian cancer Neg Hx Uterine cancer Neg Hx Relation Name Status Comments Father Alive Father's side Alive Maternal Grandfather Maternal Grandmother Mother Alive Mother's side Other Paternal Grandmother Uncle Alive Social History Tobacco Use Types Packs/Day Years Used Date Smoking Tobacco: Never Smokeless Tobacco: Never Tobacco Cessation:Counseling Given: Not Answered Alcohol Use Standard Drinks/Week Comments Not Currently 0 (1 standard drink = 0.6 oz pur e alcohol) Housing Instability Answer Date Recorde d Are you worried that in the next 2 months you may not have stable housing? No 11/10/2024 Food Access & Nutrition Answer Date Rec orded Do you have access to a vari ety of food including fruits and vegetables? Yes 11/10/2024 Access to Healthcare Answer Date Record ed Within the last 3 months, ho w many times did you visit the emergency department for your medical care? 3 11/10/2024 Health Literacy Answer Date Recorded How often do you need to hav e someone help you when you read instructions, pamphlets, or other written material from your doctor or pharmacy? Never 11/10/2024 Caregiver: How often do you need to have someone help you when you read instructions, pamphlets, or other written material from your doctor or pharmacy? Not on file 11/10/2024 Financial Risk Answer Date Recorded How hard is it for you to pa y for the very basics like food, housing, medical care, and air conditioning / heating? Not very hard 11/10/2024 Transportation Answer Date Recorded Has the lack of transportati on kept you from meetings, work, or from getting things needed for daily living? No Has the lack of transportati on kept you from medical appointments or from getting medications? No 11/10/2024 Social Isolation Answer Date Recorded How often do you feel lonely or isolated from those around you? Sometimes 11/10/2024 Food Risk Answer Date Recorded Within the past 12 months we worried whether our food would run out before we got money to buy more. Never true 11/10/2024 Within the past 12 months th e food we bought just didn't last and we didn't have money to get more. Never true 11/10/2024 Dependent Care Answer Date Recorded Do you need help finding or paying for care for your loved ones. For example, child welfare caseworker or elderly care for an older adult? No 11/10/2024 Education Answer Date Recorded Do you think completing more education or training, like finishing a GED, going to college, or learning a trade, would be helpful for you? Unable to respond 11/10/2024 Employment and Income Answer Date Recor ded During the last four weeks, have you been actively looking for work? Unable to respond 11/10/2024 Living Situation Answer Date Recorded What is your living situation? 0 11/10/2024 Comments No Sex and Gender Information Value Date Recorded Sex Assigned at Not on file Legal Sex Female 12:54 PM EST Gender Identity Not on file Sexual Orientation Not on file Obstetrics History Para Term AB IAB SAB Ectopic Multiple Livin g Live Births 0 0 0 0 0 0 0 0 0 0 0 Last Filed Vital Signs Vital Sign Reading Time Taken Comments Blood Pressure 119/89 02/03/2025 2:37 PM EDT Pulse 82 02/03/2025 2:37 PM EDT Temperature 36.3 ??C (97.4 ??F) 01/04/2025 2:37 PM ED T Respiratory Rate 16 01/24/2025 4:11 PM EDT Oxygen Saturation 98% 01/04/2025 2:37 PM EDT Inhaled Oxygen Concentration - - Weight 96.2 kg (212 lb) 02/03/2025 2:37 PM EDT Height 154.9 cm (5' 1 ) 01/24/2025 4:11 PM EDT Body Mass Index 40.06 01/24/2025 4:11 PM EDT Plan of Treatment Upcoming Encounters Date Type Department Care Team (Late st Contact Info) Description 03/24/2025 3:30 PM EDT Office Visit Endocrinology - [facility] [address] [place] [phone] Malinda Marsh PA [address] [place] [address] Health Maintenance Due Date Last Done Comments Pneumococcal Vaccine: Pediatrics (0 to 5 Years) and At-Risk Patients (6 to 64 Years) (1 of - PPSV23) 2005 02/02/2001 HIV Screening 09/28/2022 Hepatitis C Screening 09/28/2022 COVID-19 Vaccine ( season) 2024 Influenza Vaccine (Season Ended) 2025 07/28/2017, 08/19/2016, 08/15/2015, Additional history exists Depression Screening 11/10/2025 11/10/2024 Social Influencers of Health Screening 11/10/2025 11/10/2024 Cervical Cancer Screening: Pap Smear 02/04/2028 02/03/2025, 07/06/2021, 07/06/2021, Additional history exists Cholesterol Screening (Lipid Panel) 01/05/2029 01/06/2024, 01/06/2024 DTaP,Tdap,and Td Vaccines (9 - Td or Tdap) 09/18/2031 09/18/2021, 06/13/2020, 05/17/2010, Additional history exists Hepatitis B Vaccines Completed 1999, 1999, 1999 HIB Vaccines Completed 04/14/2000, 08/21, 1999, Additional history exists MMR Vaccines Completed 04/14/2000 IPV Vaccines Completed 03/20/2005, 09/19, 1999, Additional history exists Hepatitis A Vaccines Completed 04/08/2007, 04/02/20 06 Varicella Vaccines Completed 04/08/2007, 08/25/2000 HPV Vaccines Completed 07/25/2014, 12/2013, 01/12/2014 Meningococcal ACWY Vaccine Completed 08/15/2015, Meningococcal B Vaccine Completed 06/09/20 17, 08/19/2016, 06/17/2016 Gonorrhea/Chlamydia Screening Discontinued 07/06/2021 RSV Immunization Patients Under 20 months Aged Out No longer eligible based on patient's age to complete this topic Procedures Procedure Name Priority Date/Time Associated Diagnosis Comments TRIIODOTHYRONINE FREE Routine 02/03/2025 3:52 PM EDT Hypothyroidism FREE THYROXINE WITH REFLEX TO FREE TRIIODOTHYRONINE Routine 02/03/2025 3:52 PM EDT Hypothyroidism THYROID STIMULATING HORMONE WITH REFLEX TO FREE T4 AND FREE T3 Routine 02/03/2025 3:52 PM EDT Hypothyroidism PAP SMEAR Routine 02/03/2025 3:16 PM EDT Encounter for gynecological examination without abnormal finding MR KNEE WO CONTRAST RIGHT Routine 01/19/2025 4:44 PM EDT Internal derangement of right knee XR KNEE 4+ VIEWS RIGHT STAT 3:16 PM EDT Acute pain of right knee TRIIODOTHYRONINE FREE Routine 12/30/2024 7:45 AM EDT Hypothyroidism FREE THYROXINE WITH REFLEX TO FREE TRIIODOTHYRONINE Routine 12/30/2024 7:45 AM EDT Hypothyroidism THYROID STIMULATING HORMONE WITH REFLEX TO FREE T4 AND FREE T3 Routine 12/30/2024 7:45 AM EDT Hypothyroidism BASIC METABOLIC PANEL Routine 12/30/2024 7:45 AM EDT Decreased GFR MICROALBUMIN CREATININE URINE RATIO Routine 12/30/2024 7:45 AM EDT Decreased GFR US RETROPERITONEAL COMPLETE Routine 12/13/2024 7:16 PM EST Acute maxillary sinusitis, recurrence not specified Acute cough Chest discomfort Urinary urgency URINALYSIS WITH REFLEX MICROSCOPIC Routine 12/13/2024 2:49 PM EST Acute maxillary sinusitis, recurrence not specified Acute cough Chest discomfort Urinary urgency MICROALBUMIN CREATININE URINE RATIO Routine 12/13/2024 2:49 PM EST Acute maxillary sinusitis, recurrence not specified Acute cough Chest discomfort Urinary urgency URINALYSIS WITH REFLEX MICROSCOPIC Routine 12/13/2024 2:49 PM EST Acute maxillary sinusitis, recurrence not specified Acute cough Chest discomfort Urinary urgency CULTURE URINE Routine 12/13/2024 2:49 PM EST Acute maxillary sinusitis, recurrence not specified Acute cough Chest discomfort Urinary urgency TRIIODOTHYRONINE FREE Routine 12/13/2024 2:38 PM EST Hypothyroidism, unspecified type FREE THYROXINE WITH REFLEX TO FREE TRIIODOTHYRONINE Routine 12/13/2024 2:38 PM EST Hypothyroidism, unspecified type THYROID STIMULATING HORMONE WITH REFLEX TO FREE T4 AND FREE T3 Routine 12/13/2024 2:38 PM EST Hypothyroidism, unspecified type BASIC METABOLIC PANEL Routine 12/13/2024 2:38 PM EST Acute maxillary sinusitis, recurrence not specified Acute cough Chest discomfort Urinary urgency XR CHEST 2 VIEWS Routine 12/13/2024 2:25 PM EST Acute maxillary sinusitis, recurrence not specified Acute cough Chest discomfort Urinary urgency EXTERNAL XRAY REPORT 12/13/2024 LIPID PANEL Routine 01/06/2024 HM GONORRHEA/CHLAMYDIA SCRREENING Routine 07/06/2021 from Last 3 Months or Most Recently Relevant to Health Maintenance Results * (ABNORMAL) Thyroid stimulating hormone with reflex to free t4 and free t3 (02/03/2025 3:52 PM EDT) Only the most recent of3 resultswithin the time period is included. TSH 74.87(H) 0.40 - 4.00 mcIU/mL LAB CHEMISTRY METHOD 02/03/2025 6:48 PM EDT [facility] Blood Venous blood specimen / Unknown Venipuncture / Unknown 02/03/2025 3:52 PM EDT 02/03/2025 3:52 PM EDT Malinda PHILIP LAB BLOOD ORDERABLES Final Result Performing Organization Address City/[facility]/ZIP Co de Phone Number [facility] [address] [place] [address], [place] [phone] * Free thyroxine with reflex to free triiodothyronine (02/03/2025 3:52 PM EDT) Only the most recent of3 resultswithin the time period is included. Free T4 0.95 0.70 - 1.80 ng/dL LAB CHEMISTRY METHOD 02/03/2025 7:27 PM EDT [facility] Blood Venous blood specimen / Unknown Venipuncture / Unknown 02/03/2025 3:52 PM EDT 02/03/2025 3:52 PM EDT Malinda PHILIP LAB BLOOD ORDERABLES Final Result Performing Organization Address [facility]/ZIP Co de Phone Number [facility] [address] [place] [address], [place] [phone] * Triiodothyronine free (02/03/2025 3:52 PM EDT) Only the most recent of3 resultswithin the time period is included. T3, Free 246 230 - 420 pcg/dL LAB CHEMISTRY METHOD 02/03/2025 8:50 PM EDT [facility] Blood Venous blood specimen / Unknown Venipuncture / Unknown 02/03/2025 3:52 PM EDT 02/03/2025 3:52 PM EDT Malinda PHILIP LAB BLOOD ORDERABLES Final Result Performing Organization Address [facility]/ZIP Co de Phone Number [facility] [address] [place] [address], [place] [phone] * Pap smear (02/03/2025 3:16 PM EDT) Interpretation Negative for intraepithelial lesion or malignancy 02/08/2025 10:18 AM EDT [facility] General Categorization Negative 02/08/2025 10:18 AM EDT [facility] Specimen Adequacy Satisfactory for evaluation, endocervical/washburn sformation zone component present 02/08/2025 10:18 AM EDT [facility] Pap Methodology Liquid Based Pap Test 02/08/2025 10:18 AM EDT [facility] Disclaimer The Pap test is a screening test which carries an inherent false negative rate. These test results should be correlated with the patient's clinical findings and history. This Pap test was processed using an automated screening system. Technical cytopathology services provided by [facility], at [address] [place] [id number] (CLIA # [id number]/Marcia Loo MD, Vacuum Spindle Sander.) 02/08/2025 10:18 AM EDT [facility] Console Pap Interpretation Reported 02/08/2025 10:18 AM EDT [facility] Brushing/Spatula Cervix uteri structure / Unknown 02/03/2025 3:16 PM EDT 02/03/2025 3:16 PM EDT us Sandra Duncan CNM LAB CYTOLOGY ORDERABLES Final Result Performing Organization Address City/[facility]/ZIP Co de Phone Number [facility] [address] [place] [address], [place] [phone] * MR Knee wo Contrast Right (01/19/2025 4:44 PM EDT) Anatomical Region Laterality Modality Lower Extremities, Knee Right Magnetic Resonance 01/21/2025 1:31 PM EDT Narrative 01/21/2025 1:38 PM EDT MRI of the right knee. History medial knee pain after trauma. Examination was performed on 1.5 Sharla magnet without administration of intravenous contrast. Plain films obtained on 01/04/2025 were reviewed. Medial and lateral collateral ligaments, anterior and posterior cruciate ligaments, quadriceps femoris tendon and patellar ligament are maintained. There is no evidence of meniscal tears. There is no evidence of joint effusion. There is focal area of bone marrow edema in the central region of the patella, probably representing bone bruise. There is no evidence of fracture. There is ??edema of the patellar cartilage overlying the lateral facet. No focal defects were identified in the articular cartilage. Cortical outlines and bone marrow signal are otherwise normal. CONCLUSIONS: No evidence of fractures. Central area of bone bruise in the patella. Abnormally increased signal in the cartilage overlying lateral patellar facet. No evidence of ligamentous or meniscal tears. -------- FINAL REPORT -------- Dictated By: Paola Dahl Dictated Date: 01/21/2025 13:31 ET Assigned Physician: Paola Dahl Reviewed and Electronically Signed By: Paola Dahl Signed Date: 01/21/2025 13:38 ET Workstation ID: [id number] Transcribed By: Self Edit Transcribed Date: 01/21/2025 13:31 ET Procedure Note Paola Dahl MD - 01/21/2025 MRI of the right knee. History medial knee pain after trauma. Examination was performed on 1.5 Sharla magnet without administration ofintravenous contrast. Plain films obtained on 01/04/2025 were reviewed. Medial and lateral collateral ligaments, anterior and posterior cruciateligaments, quadriceps femoris tendon and patellar ligament are maintained.There is no evidence of meniscal tears. There is no evidence of jointeffusion. There is focal area of bone marrow edema in the central region of thepatella, probably representing bone bruise. There is no evidence offracture. There is edema of the patellar cartilage overlying the lateralfacet. No focal defects were identified in the articular cartilage.Cortical outlines and bone marrow signal are otherwise normal. CONCLUSIONS: No evidence of fractures. Central area of bone bruise in thepatella. Abnormally increased signal in the cartilage overlying lateralpatellar facet. No evidence of ligamentous or meniscal tears. -------- FINAL REPORT -------- Dictated By: Paola Dahl Dictated Date: 01/21/2025 13:31 ET Assigned Physician: Paola Dahl Reviewed and Electronically Signed By: Paola Dahl Signed Date: 01/21/2025 13:38 ET Workstation ID: [id number] Transcribed By: Self Edit Transcribed Date: 01/21/2025 13:31 ET Giovani PHILIP IMG MRI PROCEDURES Final Result * XR Knee 4+ Views Right (01/04/2025 3:16 PM EDT) Anatomical Region Laterality Modality Lower Extremities, Knee Right [facility] 01/04/2025 4:30 PM EDT Impressions 01/04/2025 4:33 PM EDT No fracture or malalignment. POS - [id number] -------- FINAL REPORT -------- Dictated By: Yesenia Loera Dictated Date: 01/04/2025 16:30 ET Assigned Physician: Yesenia Loera Reviewed and Electronically Signed By: Yesenia Loera Signed Date: 01/04/2025 16:33 ET Workstation ID: [id number] Transcribed By: Self Edit Transcribed Date: 01/04/2025 16:30 ET Narrative 01/04/2025 4:33 PM EDT EXAM: Right knee x-ray HISTORY: Right knee pain. ??History of right knee injury in October due to a fall. COMPARISON: None VIEWS: ??4 views performed. FINDINGS: No fracture or malalignment. ??Tricompartment joint spaces are maintained. ??No destructive bone lesion. ??Trace joint effusion. Procedure Note Yesenia Loera MD - 01/04/2025 EXAM: Right knee x-ray HISTORY: Right knee pain. History of right knee injury in October due toa fall. COMPARISON: None VIEWS: 4 views performed. FINDINGS: No fracture or malalignment. Tricompartment joint spaces are maintained.No destructive bone lesion. Trace joint effusion. IMPRESSION: No fracture or malalignment. POS - [id number] -------- FINAL REPORT -------- Dictated By: Yesenia Loera Dictated Date: 01/04/2025 16:30 ET Assigned Physician: Yesenia Loera Reviewed and Electronically Signed By: Yesenia Loera Signed Date: 01/04/2025 16:33 ET Workstation ID: [id number] Transcribed By: Self Edit Transcribed Date: 01/04/2025 16:30 ET Dave Ruelas MD IMG XR PROCEDURES Final Result * (ABNORMAL) Microalbumin creatinine urine ratio (12/30/2024 7:45 AM EDT) Only the most recent of2 resultswithin the time period is included. Creatinine, Urine 372.0 mg/dL LAB CHEMISTRY METHOD 12/30/2024 10:52 AM EDT [facility] Microalb, Ur 38.5(H) 0.0 - 29.0 mg/L LAB CHEMISTRY METHOD 12/30/2024 10:52 AM EDT [facility] Microalb/Crea t Ratio 10 <30 mg/g creat LAB CHEMISTRY METHOD 12/30/2024 10:52 AM EDT [facility] Urine Urine specimen obtained by clean catch procedure / Unknown Non-blood Collection / Unknown 12/30/2024 7:45 AM EDT 12/30/2024 7:45 AM EDT Rafa PHILIP LAB URINE ORDERABLES Aziza l Result [facility] [address] [place] [address], [place] [phone] * (ABNORMAL) Basic metabolic panel (12/30/2024 7:45 AM EDT) Only the most recent of2 resultswithin the time period is included. Sodium 140 133 - 145 mmol/L LAB CHEMISTRY METHOD 12/30/2024 10:23 AM [facility] Potassium 4.0 3.5 - 5.5 mmol/L LAB CHEMISTRY METHOD 12/30/2024 10:23 AM [facility] Chloride 105 96 - 110 mmol/L LAB CHEMISTRY METHOD 12/30/2024 10:23 AM [facility] CO2 26 21 - 32 mmol/L LAB CHEMISTRY METHOD 12/30/2024 10:23 AM [facility] Anion Gap 9 3 - 11 LAB CHEMISTRY METHOD 12/30/2024 10:23 AM [facility] Glucose 93 70 - 100 mg/dL LAB CHEMISTRY METHOD 12/30/2024 10:23 AM [facility] BUN 16 5 - 25 mg/dL LAB CHEMISTRY METHOD 12/30/2024 10:23 AM [facility] Creatinine 1.34(H) 0.50 - 1.10 mg/dL LAB CHEMISTRY METHOD 12/30/2024 10:23 AM [facility] eGFR 57(L) >=60 mL/min/1. 73m2 LAB CHEMISTRY METHOD 12/30/2024 10:23 AM [facility] Comment:Calculation based on the??Chronic Kidney Disease Epidemiology Collaboration (CKD-EPI) equation refit??without adjustment for race. BUN/Creatinine Ratio 11.9 LAB CHEMISTRY METHOD 12/30/2024 10:23 AM [facility] Calcium 9.6 8.5 - 10.5 mg/dL LAB CHEMISTRY METHOD 12/30/2024 10:23 AM [facility] Blood Venous blood specimen / Unknown Venipuncture / Unknown 12/30/2024 7:45 AM EDT 12/30/2024 7:45 AM EDT us Rafa PHILIP LAB BLOOD ORDERABLES Aziza olivares Result [facility] [address] [place] [address], [place] [phone] * [place] Retroperitoneal Complete (12/13/2024 7:16 PM EST) Anatomical Region Laterality Modality Body Ultrasound 12/14/2024 8:31 AM EST Impressions 12/14/2024 8:32 AM EST Unremarkable examination. ??No hydronephrosis on either side. -------- FINAL REPORT -------- Dictated By: Gautam Gonzalez Dictated Date: 12/14/2024 08:31 ET Assigned Physician: Gautam Gonzalez Reviewed and Electronically Signed By: Gautam Gonzalez Signed Date: 12/14/2024 08:32 ET Workstation ID: [id number] Transcribed By: Self Edit Transcribed Date: 12/14/2024 08:31 ET Narrative 12/14/2024 8:32 AM EST US RETROPERITONEAL COMPLETE TECHNIQUE: Complete ultrasound evaluation of the retroperitoneum was performed. ?? COMPARISON: None. Reason for the study: urinary urgency urinary urgency FINDINGS: RIGHT KIDNEY: Size: 10.7 cm. No shadowing stones or hydronephrosis. LEFT KIDNEY: ??Size: 10.0 cm. No shadowing stones or hydronephrosis. BLADDER: ??Urinary bladder is well distended without wall thickening. Bilateral ureteral jets were seen. Prevoid urinary bladder volume measures 302.9 cc. Post void volume of 3.7 cc. Procedure Note Gautam Gonzalez MD - 12/14/2024 US RETROPERITONEAL COMPLETE TECHNIQUE: Complete ultrasound evaluation of the retroperitoneum was performed. COMPARISON: None. Reason for the study: urinary urgency urinary urgency FINDINGS: RIGHT KIDNEY: Size: 10.7 cm. No shadowing stones or hydronephrosis. LEFT KIDNEY: Size: 10.0 cm. No shadowing stones or hydronephrosis. BLADDER: Urinary bladder is well distended without wall thickening.Bilateral ureteral jets were seen. Prevoid urinary bladder volume [id number] cc. Post void volume of 3.7 cc. IMPRESSION: Unremarkable examination. No hydronephrosis on either side. -------- FINAL REPORT -------- Dictated By: Gautam Gonzalez Dictated Date: 12/14/2024 08:31 ET Assigned Physician: Gautam Gonzalez Reviewed and Electronically Signed By: Gautam Gonzalez Signed Date: 12/14/2024 08:32 ET Workstation ID: [id number] Transcribed By: Self Edit Transcribed Date: 12/14/2024 08:31 ET us [facility] US PROCEDURES Final R esult * Urinalysis with reflex microscopic (12/13/2024 2:49 PM EST) Specific [place] Urine 1.026 1.003 - 1.030 LAB URINALYSIS - AUTOMATED METHOD 12/13/2024 4:47 PM [facility] pH, Urine 5.5 5.0 - 8.0 pH LAB URINALYSIS - AUTOMATED METHOD 12/13/2024 4:47 PM [facility] Leukocytes, Urine Negative Negative LAB URINALYSIS - AUTOMATED METHOD 12/13/2024 4:47 PM [facility] Nitrite, Urine Negative Negative LAB URINALYSIS - AUTOMATED METHOD 12/13/2024 4:47 PM [facility] Protein, Urine Negative <=Trace mg/dL LAB URINALYSIS - AUTOMATED METHOD 12/13/2024 4:47 PM [facility] Glucose, Urine Negative Negative mg/dL LAB URINALYSIS - AUTOMATED METHOD 12/13/2024 4:47 PM [facility] Ketones, Urine Negative Negative mg/dL LAB URINALYSIS - AUTOMATED METHOD 12/13/2024 4:47 PM [facility] Urobilinogen, Urine 1.0 0.2 - 1.0 mg/dL LAB URINALYSIS - AUTOMATED METHOD 12/13/2024 4:47 PM EST [facility] Bilirubin, Urine Negative Negative LAB URINALYSIS - AUTOMATED METHOD 12/13/2024 4:47 PM EST [facility] Blood, Urine Negative Negative LAB URINALYSIS - AUTOMATED METHOD 12/13/2024 4:47 PM EST [facility] Urine Urine specimen obtained by clean catch procedure / Unknown Non-blood Collection / Unknown 12/13/2024 2:49 PM EST 12/13/2024 2:49 PM EST [facility] LAB URINE ORDERABLES Aziza l Result Performing Organization Address [facility]/ZIP Co de Phone Number [facility] [address] [place] [address], [place] [phone] * Culture urine (12/13/2024 2:49 PM EST) Culture, Urine <10,000 CFU/mL gram negative bacilli, insignificant count, no further workup 12/14/2024 8:21 AM EST [facility] Urine Urine specimen obtained by clean catch procedure / Unknown Non-blood Collection / Unknown 12/13/2024 2:49 PM EST 12/13/2024 2:49 PM EST [facility] LAB MICROBIOLOGY - GENERA L ORDERABLES Final Result Performing Organization Address [facility]/State/ZIP Co de Phone Number [facility] [address] [place] [address], [place] [phone] * XR Chest 2 Views (12/13/2024 2:25 PM EST) Anatomical Region Laterality Modality Body Radiographic Elza ging 12/13/2024 2:30 PM EST Impressions 12/13/2024 2:31 PM EST Normal examination. -------- FINAL REPORT -------- Dictated By: Gautam Gonzalez Dictated Date: 12/13/2024 14:30 ET Assigned Physician: Gautam Gonzalez Reviewed and Electronically Signed By: Gautam Gonzalez Signed Date: 12/13/2024 14:31 ET Workstation ID: [id number] Transcribed By: Self Edit Transcribed Date: 12/13/2024 14:30 ET Narrative 12/13/2024 2:31 PM EST XR CHEST 2 VIEWS Reason: cough persistent cough Comparison: None FINDINGS: Lungs: Clear Pleura: No pleural effusion or pneumothorax. Heart/Mediastinum: Cardiomediastinal silhouette is within normal limits. Bones : No acute findings. Procedure Note Gautam Gonzalez MD - 12/13/2024 XR CHEST 2 VIEWS Reason: cough persistent cough Comparison: None FINDINGS: Lungs: Clear Pleura: No pleural effusion or pneumothorax. Heart/Mediastinum: Cardiomediastinal silhouette is within normal limits. Bones : No acute findings. IMPRESSION: Normal examination. -------- FINAL REPORT -------- Dictated By: Gautam Gonzalez Dictated Date: 12/13/2024 14:30 ET Assigned Physician: Gautam Gonzalez Reviewed and Electronically Signed By: Gautam Gonzalez Signed Date: 12/13/2024 14:31 ET Workstation ID: [id number] Transcribed By: Self Edit Transcribed Date: 12/13/2024 14:30 ET [facility] IMG XR PROCEDURES Final R esult * External Xray Report (12/13/2024) Anatomical Region Laterality Modality Radiographic Elza ging Provider [facility] XR PROCEDURES Final Result * (ABNORMAL) Lipid panel (01/06/2024) LDL/HDL Ratio 3 0 - 4 Triglycerides 104 0 - 150 mg/dL Cholesterol 186 0 - 200 mg/dL HDL 59 >=40 mg/dL LDL Cholesterol 107(A) 0 - 100 mg/dL Blood Venous blood specimen / Unknown us Historical Provider LAB BLOOD ORDERABLES Aziza l Result * Gonorrhea/Chlamydia Screening (07/06/2021) HM Gonorrhea/Chla mydia Screening abstracted us Historical Provider HEALTH MAINTENANCE Final Result from Last 3 Months or Most Recently Relevant to Health Maintenance Insurance [facility] Care Teams Rn Hemodialysis Relationship Specialty Start Date End Date Glenn Max MD [address] [place] [address] PCP - General 02/07/23
--- OUTSIDE RECORDS SUMMARY | 2025-03-09 20:59 | XMS_ITS | Patient Health Record ---
Author Organization [facility] Address [address] [place] [address] Support Name Relationship Address Phone Cinda Ocampo Guarantor Unknown [phone] Reason For Referral No Information Problems Problem Type SNOMED Code ICD Code Onset Dates Problem Status W/U Status Risk Notes Problem Obesity due to excess calories (080003257) Other obesity due to excess calories (E66.09) Active confirmed Problem Body mass index (BMI) 32.0-32.9, adult (Z68.32) Active confirmed Plan Of Treatment Pending Test Test Name Order Date *SARS-CoV-2 COVID-19 PCR 10/27/2020 Insurance Providers Payer Name Payer Address Payer Phone Subscriber Number Group Number Insured Name Patient Relationship to Insured Coverage Start Date Coverage End Date [facility] [address] [place] [address] [id number] ELROY [id number] Natural Child - Insured has Financial Responsibility
--- OUTSIDE RECORDS SUMMARY | 2025-03-09 20:59 | XMS_ITS | Continuity of Care Document ---
Author Organization [facility] Address [address] [place] [address] Phone Care Team Providers Care Patient Resource Coordinator Name Role Phone Stiven Ashton MD Unavailable [...] Pt, Level III Therapeutic, Prophylactic, Diagnostic In [facility]; SQ Or IM Omalizumab (Xolair) Inj [...] Estab Pt, Level III [facility]; 1/mx Antig 7 Prof Svcs For Allergen Immun, Multi Antigen Prep,Specify # Of Doses 017 Postop F/u Visit [facility] 7 Prof Svcs For Allergen Immun, Multi Antigen Prep,Specify # Of Doses - 017 Postop F/u Visit [facility] 7 Prof Svcs For Allergen Immun, Multi Antigen Prep,Specify # Of Doses - 017 Post Op Office Visit Post Op Office Visit Prof Svcs For Allergen Immun, Multi Antigen Prep,Specify # Of Doses 017 Post Op Office Visit Post Op Office Visit Septoplasty Resect Submucous Turbinate,Part/Com Repair Of Nasal Vestibular Stenosis OV, Estab Pt, Level III Prof Svcs For Allergen Immun, [facility] Antigen Prep,Specify # Of Doses 017 OV, Estab Pt, Level III Prof Svcs For Allergen Immun, [facility] Antigen Prep,Specify # Of Doses 017 Diagnostic Nasal Endoscopy OV, Estab Pt, Level III Prof Sv[facility] For Allergen Immun, [facility] Antigen Prep,Specify # Of Doses 017 Prof Svcs For Allergen Immun, [facility] Antigen Prep,Specify # Of Doses 017 Prof Svcs For Allergen Immun, Multi Antigen Prep,Specify # Of Doses 017 Prof Svcs For Allergen Immun, [facility] Antigen Prep,Specify # Of Doses 016 Prof Svcs For Allergen Immun, Multi Antigen Prep,Specify # Of Doses 016 Spirometry W/rgobe-dd-huftx [place] 016 OV, Estab Pt, Level III Prof Svcs For Allergen Immun, Multi Antigen Prep,Specify # Of Doses 016 Prof Svcs For Allergen Immun, Multi Antigen Prep,Specify # Of Doses 016 Prof Svcs For Allergen Immun, [facility] Antigen Prep,Specify # Of Doses 016 Prof Svcs For Allergen Immun, Multi Antigen Prep,Specify # Of Doses 016 OV, Estab Pt, Level III Diagnostic Nasal Endoscopy Prof Sv[facility] For Allergen Immun, [facility] Antigen Prep,Specify # Of Doses 016 [...] Doses 015 Prof Svcs For Allergen Immun, [facility] Antigen Prep,Specify # Of Doses 015 [...] -2 014 Prof S[facility] For Allergen Immun, [facility] Antigen Prep,Specify # Of Doses -2 014 Prof [facility] For Allergen Immun, [facility] Antigen Prep,Specify # Of Doses -2 014 Prof Svcs For Allergen Immun, Multi Antigen Prep,Specify # Of Doses -2 014 Prof [facility] For Allergen Immun, [facility] Antigen Prep,Specify # Of Doses -2 014 Prof S[facility] For Allergen Immun, [facility] Antigen Prep,Specify # Of Doses Jul--2 014 Prof S[facility] For Allergen Immun, [facility] Antigen Prep,Specify # Of Doses -2 014 Prof S[facility] For Allergen Immun, [facility] Antigen Prep,Specify # Of Doses -2 014 Prof [facility] For Allergen Immun, [facility] Antigen Prep,Specify # Of Doses - 014 Prof Svcs For Allergen Immun, [facility] Antigen Prep,Specify # Of Doses 014 Prof S[facility] For Allergen Immun, [facility] Antigen Prep,Specify # Of Doses 014 Antigen Prep,Specify # Of Doses 014 Prof S[facility] For Allergen Immun, [facility] Percut Allergy Skin Tests Intracutaneous Tests W/ Allergen Ex Consult, Level III /Office Advance Directives Directive Yes / No Effective Date File Name No Information Encounters Encounter Description Practice Location Reason(s) For Visit Diagnoses Date Provider Providers Copied on Encounter [facility], [address], [place], [id number] , [place] tel: [phone] [facility] No Information 4 Poli Saleem. [address], [address], [place], [place], [id number], [place]. tel:[phone] [facility], [address], [place], [place], [id number] , [place] tel: [phone] [facility] No Information 3 Poli Saleem. [address], [address], [place], [id number], [place]. tel:[phone] OV, Estab Pt, Level III [facility], [address], [place], [place], [id number] , [place] tel: [phone] [facility] allergy symptoms (chief complaint)fo llow up (chief complaint) Idiopathic urticariaOthe r allergic rhinitisDerma titis due to ingested foodModerate persistent asthma, uncomplicated 3 Poli Saleem. [address], [address], [place], [place], [id number], [place]. tel:[phone] Referring Provider: Alex Gamboa, [address] [facility], [place], [address]. tel:[phone] [facility], [address], [place], [place], [id number] , [place] tel: [phone] [facility] No Information 2 Poli Saleem. [address], [address], [place], [place], [id number], [place]. tel:[phone] [facility], [address], [place], [id number] , [place] tel: [phone] [facility] Idiopathic urticaria 2 Poli Saleem. [address], [address], [place], [address], [place]. tel:[phone] Referring Provider: Alex Gamboa, [address] [place] [address], [address]. tel:[phone] [facility], [address], [place], [place], [address] , [place] tel: [phone] [facility] No Information 2 Poli Saleem. [address] , [facility] [address], [id number], [place]. tel:[phone] OV, New Pt, Level IV [facility], [address], [place], [place], [address] , [place] tel: [phone] [facility] allergy symptoms (chief complaint)fo llow up (chief complaint) Dermatitis due to ingested foodOther allergic rhinitisIdiop athic urticariaGene ralized skin eruption due to drugs and medicaments taken internallyMod erate persistent asthma, uncomplicated Allergic rhinitis, unspecifiedAl lergic rhinitis due to food 2 Poli Saleem. [address] , [address], [place], [address], [place]. tel:[phone] Referring Provider: Alex Gamboa, [address] [place] [address], [address]. tel:[phone] OV, Estab Pt, Level III [facility], [address], [place], [place], [address] , [place] tel: [phone] [facility] nasal congestion (chief complaint)Po stnasal drip (chief complaint) Chronic rhinitis 9 Lesli Venegas. [address], [address], [place], [place], [address], [place]. [phone] Referring Provider: Alex Gamboa, [facility], [place], [address]. tel:[phone] OV, Estab Pt, Level III [facility], [address], [place], [place], [address] , [place] tel: [phone] [facility] nasal congestion (chief complaint)Po stnasal drip (chief complaint) Allergic rhinitis due to pollenChronic rhinitisHyper trophy of nasal turbinates 9 Lesli Venegas. [address] [facility], [address], [id number], [place]. [phone] Referring Provider: Perla Fajardo, [address] [place], [address]. tel:[phone] OV, Estab Pt, Level III [facility], [address], [place], [place], [address] , [place] tel: [phone] [facility] allergy symptoms (chief complaint)fo llow up (chief complaint) Dermatitis due to ingested foodAllergic rhinitis due to pollenAllergi c rhinitis due to food 8 Poli Saleem. [address] [facility], [address], [place], [address], [place]. tel:[phone] Referring Provider: Perla Fajardo, [address] [place], [address]. tel:[phone] OV, Estab Pt, Level III [facility], [address], [place], [place], [address] , [place] tel: [phone] [facility] nosebleed (chief complaint) Allergic rhinitis, unspecifiedEp istaxis 8 Lesli Venegas. [address] [facility] [address], [address], [place], [id number], [place]. tel:[phone] Referring Provider: Perla Scotty, [address], [place], [address]. tel:[phone] OV, Estab Pt, Level III [facility], [address], [place], [place], [id number] , [place] tel: [phone] [facility] nasal congestion (chief complaint)no sebleed (chief complaint) Allergic rhinitis, unspecifiedEp istaxis Lesli Venegas. [address], [address], [place], [place], [address], [place]. tel:[phone] Referring Provider: Alex Gamboa, [address] [place] [address], [address]. tel:[phone] [facility], [address], [place], [place], [address] , [place] tel: [phone] [facility] No Information Poli Saleem. [address] [facility], [address], [place], [address], [place]. tel:[phone] OV, Estab Pt, Level III [facility], [address], [place], [id number] , [place] tel: [phone] [facility] allergy symptoms (chief complaint) Allergic rhinitis due to pollenDermati tis due to ingested foodOther allergic rhinitisAller gic rhinitis, unspecifiedAl lergic rhinitis due to food 7 Poli Saleem. [address] [facility], [address], [place], [address], [place]. tel:[phone] Referring Provider: Alex Gamboa, [address] [place] [address], [address]. tel:[phone] [facility], [address], [place], [address] , [place] tel: [phone] [facility] post-operati ve visit (chief complaint) Deviated nasal septum Lesli Venegas. [address] [facility], [address], [place], [address], [place]. tel:[phone] Referring Provider: Perla Fajardo, [address] [place], [address]. tel: [phone] [facility], [address], [place], [place], [address] , [place] tel: [phone] [facility] Allergic rhinitis due to pollen No Information [facility], [address], [place], [address] , [place] tel: [phone] [facility] Allergic rhinitis due to pollenOther allergic rhinitisAller gic rhinitis due to animal (cat) (dog) hair and dander Poli Saleem. [address] [facility], [address], [place], [address], [place]. tel:[phone] Referring Provider: Alex Gamboa, [facility], [place], [address]. tel:[phone] [facility], [address], [place], [place], [address] , [place] tel: [phone] [facility] post-operati ve visit (chief complaint) Deviated nasal septum Lesli Venegas. [address] [facility] [address] , [address], [place], [address], [place]. tel:[phone] Referring Provider: Perla Fajardo, [address] [place], [address]. tel:[phone] [facility], [address], [place], [place], [address] , [place] tel: [phone] [facility] Allergic rhinitis due to pollenOther allergic rhinitisAller gic rhinitis due to animal (cat) (dog) hair and dander 8 7 Lesli Venegas. [address] [facility], [address], [id number], [place]. tel: [phone] Referring Provider: Perla Fajardo, [address] [place], [address]. tel: [phone] [facility], [address], [place], [place], [address] , [place] tel: [phone] [facility] post-operati ve visit (chief complaint) Deviated nasal septum 7 Lesli Venegas. [address] [facility], [address], [id number], [place]. tel: [phone] Referring Provider: Alex Gamboa, [address] [place] [address], [facility] hospital. tel: [phone] [facility], [address], [place], [place], [address] , [place] tel: [phone] [facility] Allergic rhinitis due to pollenOther allergic rhinitisAller gic rhinitis due to animal (cat) (dog) hair and dander 0 7 Poli Saleem. [address] [facility], [address], [place], [address], [place]. tel:[phone] Referring Provider: Alex Gamboa, [address] [place] [address], [address]. tel: [phone] [facility], [address], [place], [place], [address] , [place] tel: [phone] [facility] post-operati ve visit (chief complaint) Deviated nasal septum 7 Lesli Venegas. [address] [facility], [address], [place], [address], [place]. tel:[phone] Referring Provider: Perla Fajardo, [address] [place], [address]. tel:[phone] [facility], [address], [place], [place], [address] , [place] tel: [phone] [facility] post-operati ve visit (chief complaint) Deviated nasal septum 0- 7 Lesli Venegas. [address] [facility], [facility] [address], [place], [address], [place]. tel:[phone] Referring Provider: Alex Gamboa, [address] [place] [address], [address]. tel:[phone] [facility], [address], [place], [address] , [place] tel: [phone] [facility] Allergic rhinitis due to pollenOther allergic rhinitisAller gic rhinitis due to animal (cat) (dog) hair and dander 7 Poli Saleem. [address] [facility], [address], [place], [address], [place]. tel:[phone] Referring Provider: Alex Gamboa, [address] [place] [address], [address]. tel:[phone] [facility], [address] [place] [address], [id number] , [place] tel: [phone] [facility] post-operati ve visit (chief complaint) Deviated nasal septum 7 Lesli Venegas. [address] [facility], [address], [place], [address], [place]. tel:[phone] Referring Provider: Alex Gamboa, [address] [place] [address], [address]. tel:[phone] [facility], [address], [place], [address] , [place] tel: [phone] [facility] Deviated nasal septumHypertr ophy of nasal turbinatesOth er specified disorders of nose and nasal sinuses 7 Lesli Venegas. [address], [address], [place], [address], [place]. tel:[phone] [facility], [address], [place], [place], [address] , [place] tel: [phone] [facility] Deviated nasal septum 7 Lesli Venegas. [address] [facility] [address], [facility] [address], [place], [address], [place]. tel:[phone] Referring Provider: Perla Fajardo, [address] [place], [address]. tel:[phone] [facility], [address], [place], [id number] , [place] tel: [phone] [facility] No Information 7 Lesli Venegas. [address] [facility], [address], [id number], [place]. tel:[phone] Referring Provider: Alex Gamboa, [address] [place] [address], [address]. tel:[phone] OV, Estab Pt, Level III [facility], [address], [place], [place], [address] , [place] tel: [phone] [facility] nasal congestion (chief complaint)Na otto obstruction (chief complaint) Deviated nasal septumHypertr ophy of nasal turbinatesOth er specified disorders of nose and nasal sinuses 0 7 Lesli Venegas. [address] [facility] [address], [facility] [address], [place], [address], [place]. tel:[phone] Referring Provider: Alex Gamboa, [address] [place] [address], [address]. tel:[phone] [facility], [address], [place], [address] , [place] tel: [phone] [facility] Allergic rhinitis due to pollenOther allergic rhinitisAller gic rhinitis due to animal (cat) (dog) hair and dander Apr-2 7 Poli Saleem. [address] [facility], [address], [place], [address], [place]. tel:[phone] Referring Provider: Alex Gamboa, [address] [place] [address], Critical access hospital. tel:[phone] OV, Estab Pt, Level III [facility], [address] [place] [address], [id number] , [place] tel: [phone] [facility] nasal congestion (chief complaint)Na otto obstruction (chief complaint) Allergic rhinitis due to animal (cat) (dog) hair and danderNasal congestionOth er specified disorders of nose and nasal sinusesHypert rophy of nasal turbinatesDev iated nasal septum Apr-2 7 Lesli Venegas. [address] [facility], [address], [place], [place], [address], [place]. tel:[phone] Referring Provider: Alex Gamboa, [address] [place] [address], Critical access hospital. tel:[phone] [facility], [address] [place] [address], [id number] , [place] tel: [phone] [facility] Allergic rhinitis due to pollenOther allergic rhinitisAller gic rhinitis due to animal (cat) (dog) hair and dander Apr-0 7 Poli Saleem. [address], [address], [place], [address], [place]. tel:[phone] Referring Provider: Perla Fajardo, [address] [place], [address]. tel:[phone] OV, Estab Pt, Level III [facility], [address] [place] [address], [id number] , [place] tel: [phone] [facility] nasal congestion (chief complaint)Na otto obstruction (chief complaint) Deviated nasal septumHypertr ophy of nasal turbinatesOth er specified disorders of nose and nasal sinusesNasal congestion 7 Lesli Venegas. [address] [facility] [address], [address], [place], [place], [address], [place]. tel:[phone] Referring Provider: Perla Fajardo, [address], [place], [address]. tel:[phone] [facility], [address], [place], [address] , [place] tel: [phone] [facility] Allergic rhinitis due to pollenOther allergic rhinitisAller gic rhinitis due to animal (cat) (dog) hair and dander Poli Saleem. [address] , [address], [place], [address], [place]. tel:[phone] Referring Provider: Alex Gamboa, [address] [place] [address], [address]. tel:[phone] [facility], [address], [place], [address] , [place] tel: [phone] [facility] Allergic rhinitis due to pollenOther allergic rhinitisAller gic rhinitis due to animal (cat) (dog) hair and dander 7 Poli Saleem. [address] , [address], [place], [address], [place]. tel:[phone] Referring Provider: Alex Gamboa, [address] [place] [address], [address]. tel:[phone] [facility], [address], [place], [address] , [place] tel: [phone] [facility] Allergic rhinitis due to pollenOther allergic rhinitisAller gic rhinitis due to animal (cat) (dog) hair and dander 7 Poli Saleem. [address] , [address], [place], [address], [place]. tel: [phone] Referring Provider: Alex Gamboa, [address] [place], [address]. tel: [phone] [facility], [address], [place], [id number] , [place] tel: [phone] [facility] Allergic rhinitis due to pollenOther allergic rhinitisAller gic rhinitis due to animal (cat) (dog) hair and dander 6 Poli Saleem. [address], [address], [place], [address], [place]. tel: [phone] Referring Provider: Casi Samuels, [address] [place], [address]. tel: [phone] OV, Estab Pt, Level III [facility], [address], [place], [address] , [place] tel: [phone] [facility] allergy symptoms (chief complaint) Allergic rhinitis due to pollenAllergi c rhinitis due to animal (cat) (dog) hair and danderModerat e persistent asthma, uncomplicated Other allergic rhinitis 6 Poli Saleem. [address], [address], [place], [address], [place]. tel:[phone] Referring Provider: Alex Gamboa, [address] [place], [address]. tel: [phone] [facility], [address], [place], [address] , [place] tel: [phone] [facility] Allergic rhinitis due to pollenOther allergic rhinitisAller gic rhinitis due to animal (cat) (dog) hair and dander 6 Poli Saleem. [address], [address], [place], [address], [place]. tel:[phone] Referring Provider: Alex Gamboa, [address] [place], [address]. tel: [phone] [facility], [address], [place], [address] , [place] tel: [phone] [facility] Allergic rhinitis due to pollenOther allergic rhinitisAller gic rhinitis due to animal (cat) (dog) hair and dander 6 Poli Saleem. [address], [address], [place], [place], [address], [place]. tel: [phone] Referring Provider: Alex Gamboa, [address] [place] [address], [address]. tel: [phone] [facility], [address], [place], [address] , [place] tel: [phone] [facility] Allergic rhinitis due to pollenOther allergic rhinitisAller gic rhinitis due to animal (cat) (dog) hair and dander 6 Poli Saleem. [address], [address], [place], [place], [address], [place]. tel: [phone] Referring Provider: Alex Gamboa, [address] [place] [address], [address]. tel: [phone] [facility], [address], [place], [address] , [place] tel: [phone] [facility] Allergic rhinitis due to pollenOther allergic rhinitisAller gic rhinitis due to animal (cat) (dog) hair and dander 6 Poli Saleem. [address], [address], [place], [place], [address], [place]. tel:[phone] Referring Provider: Alex Gamboa, [address] [place] [address], [address]. tel: [phone] OV, Estab Pt, Level III [facility], [address], [place], [address] , [place] tel: [phone] [facility] nosebleed (chief complaint)na otto congestion (chief complaint) Deviated nasal septumEpistax isHypertrophy of nasal turbinatesHyp ertrophy of adenoids 6 Lesli Venegas. [address] [facility] , [address], [id number], [place]. tel: [phone] Referring Provider: Alex Samuels W, [address] [facility], [place], [address]. tel: [phone] [facility], [address], [place], [address] , [place] tel: [phone] [facility] No Information 6 Poli Saleem. [address] , [address], [id number], [place]. tel: [phone] OV, Estab Pt, Level III [facility], [address], [place], [address] , [place] tel: [phone] [facility] nasal congestion (chief complaint)no sebleed (chief complaint)ea r fullness (chief complaint) Deviated nasal septumHypertr ophy of nasal turbinatesEpi staxisImpacte d cerumen, bilateral 6 Lesli Venegas. [address] [facility], [facility] [address], [place], [address], [place]. tel: [phone] Referring Provider: Casi Samuels, [address] [place], [address]. tel: [phone] [facility], [address], [place], [id number] , [place] tel: [phone] [facility] No Information 6 Poli Saleem. [address] , [address], [place], [place], [address], [place]. tel: [phone] OV, Estab Pt, Level III [facility], [address], [place], [address] , [place] tel: [phone] [facility] rhinitis, allergic (chief complaint) Allergic rhinitis due to animal (cat) (dog) hair and danderAllergi c rhinitis due to pollenOther allergic rhinitis 6 Poli Saleem. [address], [address], [place], [address], [place]. tel:[phone] Referring Provider: Casi Samuels, [address] [place], [address]. tel:[phone] [facility], [address], [place], [address] , [place] tel: [phone] [facility] No Information 6 Poli Saleem. [address], [address], [place], [address], [place]. tel:[phone] [facility], [address], [place], [address] , [place] tel: [phone] [facility] No Information 6 Poli Saleem. [address], [address], [place], [place], [address], [place]. tel:[phone] Referring Provider: Casi Samuels, [address] [place], [address]. tel: [phone] [facility], [address], [place], [address] , [place] tel: [phone] [facility] No Information 6 Poli Saleem. [address], [address], [place], [address], [place]. tel:[phone] Referring Provider: Casi Samuels, [address] [place], [address]. tel:[phone] [facility], [address], [place], [address] , [place] tel: [phone] [facility] [facility]oc No Information 6 Poli Saleem. [address], [address], [place], [place], [id number], [place]. tel: [phone] [facility], [address], [place], [place], [id number] , [place] tel: [phone] [facility] No Information 6 Simona Thomas. [address], [address], [place], [id number], [place]. tel: [phone] [facility], [address], [place], [place], [id number] , [place] tel: [phone] [facility] No Information 6 Poli Saleem. [address], [address], [place], [place], [id number], [place]. tel: [phone] Referring Provider: Stiven Ashton MD, [address], [place], [address]. tel: [phone] [facility], [address], [place], [place], [id number] , [place] tel: [phone] [facility] No Information 6 Adriano Brandt. [address], [address], [place], [place], [address], [place]. tel: [phone] Referring Provider: Casi Samuels, [address] [place], [address]. tel: [phone] [facility], [address], [place], [place], [address] , [place] tel: [phone] [facility] No Information 6 Adriano Brandt. [address] [facility], [address], [id number], [place]. tel: [phone] [facility], [address], [place], [place], [address] , [place] tel: [phone] [facility] No Information 5 Simona Thomas. [address] [facility] , [address], [id number], [place]. tel: [phone] [facility], [address], [place], [place], [address] , [place] tel: [phone] [facility] No Information 5 Adriano Brandt. [address] [facility], [address], [id number], [place]. tel: [phone] [facility], [address], [place], [place], [address] , [place] tel: [phone] [facility] No Information 5 Lesli Venegas. [address] [facility], [address], [id number], [place]. tel: [phone] Referring Provider: Casi Samuels, [facility] [place], [address]. tel: [phone] [facility], [address], [place], [place], [address] , [place] tel: [phone] [facility] No Information 5 Simona Thomas. [address] [facility] , [facility] [address], [place], [id number], [place]. tel: [phone] [facility], [address], [place], [place], [address] , [place] tel: [phone] [facility] Allergic rhinitis due to pollenOther allergic rhinitisAller gic rhinitis due to animal (cat) (dog) hair and dander 5 Simona Thomas. [address] [facility] [address], [address], [place], [place], [id number], [place]. tel: [phone] [facility], [address], [place], [place], [address] , [place] tel: [phone] [facility] No Information Jun- 5 Poli Saleem. [address], [address], [place], [place], [address], [place]. tel: [phone] OV, Estab Pt, Level III [facility], [address], [place], [place], [address] , [place] tel: [phone] [facility] rhinitis, allergic (chief complaint)Fo od Allergy (chief complaint) Dermat D/t Food IngestAllergy , UnspecifiedRh initis Due To Pollen Jun- 5 Katelyn Stroud. [address] [place] [address] Rd [address], [place], [place], [id number], [place]. tel: [phone] [facility], [address], [place], [place], [id number] , [place] tel: [phone] [facility] No Information 5 Poli Saleem. [address], [address], [place], [place], [id number], [place]. tel: [phone] Referring Provider: Rikki Oh MD, [address], [place], [address]. tel: [phone] [facility], [address], [place], [place], [address] , [place] tel: [phone] [facility] No Information 5 Sav Venegas. [address] [facility], [address] [place] [address], [id number], [place]. tel:[phone] Referring Provider: Casi Samuels, [address] [place], [address]. tel:[phone] [facility], [address], [place], [place], [address] , [place] tel: [phone] [facility] No Information 5 Sav Venegas. [address] [facility], [address], [id number], [place]. tel:[phone] Referring Provider: Casi Samuels, [address] [place], [address]. tel:[phone] [facility], [address], [place], [place], [address] , [place] tel: [phone] [facility] No Information 5 Katelyn Stroud. [address] [place] [address] [address], [place], [place], [id number], [place]. tel:[phone] [facility], [address], [place], [place], [address] , [place] tel: [phone] [facility] No Information 5 Sav Venegas. [address], [address], [place], [id number], [place]. tel:[phone] [facility], [address], [place], [place], [address] , [place] tel: [phone] [facility] No Information 5 Sav Venegas. [address] [facility] [address], [address], [place], [address], [place]. tel:[phone] [facility], [address], [place], [place], [address] , [place] tel: [phone] [facility] No Information 0- 5 Sav Venegas. [address], [address], [id number], [place]. tel: [phone] OV, Estab Pt, Level III [facility], [address], [place], [place], [id number] , [place] tel: [phone] [facility] rhinitis, allergic (chief complaint) Rhinitis Due To Pollen Jan-2 5 Katelyn Stroud. [address] [place] [address] [address], [place], [place], [id number], [place]. tel: [phone] Referring Provider: Casi Samuels, [address] [place] [address], [address]. tel: [phone] [facility], [address], [place], [place], [address] , [place] tel: [phone] [facility] No Information 5 Sav Venegas. [address], [address], [id number], [place]. tel: [phone] [facility], [address], [place], [place], [id number] , [place] tel: [phone] [facility] No Information 5 Sav Venegas. [address], [facility] [address], [place], [address], [place]. tel: [phone] [facility], [address], [place], [place], [address] , [place] tel: [phone] [facility] No Information 0 6 5 Katelyn Stroud. [address] [facility] [address], [place], [place], [address], [place]. tel: [phone] [facility], [address], [place], [place], [address] , [place] tel: [phone] [facility] No Information 5 Katelyn Stroud. [address], [place], [place], [address], [place]. tel: [phone] [facility], [address], [place], [place], [address] , [place] tel: [phone] [facility] No Information 5 Simona Thomas. [address] [facility], [address], [id number], [place]. tel: [phone] [facility], [address], [place], [place], [address] , [place] tel: [phone] [facility] No Information 5 Lesli Venegas. [address] [facility], [address], [id number], [place]. tel: [phone] [facility], [address], [place], [place], [address] , [place] tel: [phone] [facility] No Information 5 Sav Venegas. [address], [facility] [address], [place], [address], [place]. tel: [phone] [facility], [address], [place], [place], [address] , [place] tel: [phone] [facility] No Information 0 5 Katelyn Stroud. [address] [place] [address] Rd [address], [place], [place], [address], [place]. tel: [phone] [facility], [address], [place], [place], [address] , [place] tel: [phone] [facility] No Information 5 Katelyn Stroud. [address] [facility] [address], [place], [place], [address], [place]. tel: [phone] [facility], [address], [place], [place], [address] , [place] tel: [phone] [facility] No Information 5 Katelyn Stroud. [address] [facility] [address], [place], [place], [address], [place]. tel: [phone] [facility], [address], [place], [place], [address] , [place] tel: [phone] [facility] No Information 5 Katelyn Stroud. [address] [facility] [address], [place], [place], [address], [place]. tel: [phone] Referring Provider: Luanne Zepeda MD, [address] [facility] [address] [place], [address]. tel: [phone] [facility], [address], [place], [place], [address] , [place] tel: [phone] [facility] No Information 5 Katelyn Stroud. [address] [facility] [address], [place], [place], [address], [place]. tel: [phone] [facility], [address], [place], [place], [address] , [place] tel: [phone] [facility] No Information 5 Katelyn Riosin. [address] [facility] [address], [place], [place], [address], [place]. tel:[phone] Referring Provider: Radha Otero, [address] [place] [address], [address]. tel:[phone] [facility], [address], [place], [place], [address] , [place] tel: [phone] [facility] No Information 5 Katelyn Riosin. [address] [facility] [address], [place], [place], [address], [place]. tel:[phone] [facility], [address], [place], [address] , [place] tel: [phone] [facility] No Information 5 Katelyn Riosin. [address] [facility] [address], [place], [place], [address], [place]. tel:[phone] [facility], [address], [place], [place], [address] , [place] tel: [phone] [facility] No Information 5 Katelyn Stroud. [address] [facility] [address], [place], [place], [address], [place]. tel: [phone] [facility], [address], [place], [place], [address] , [place] tel: [phone] [facility] No Information 5 Katelyn Riosin. [address] [facility] [address], [place], [place], [address], [place]. tel: [phone] [facility], [address], [place], [place], [address] , [place] tel: [phone] [facility] No Information 4 Katelyn Riosin. [address] [facility] [address], [place], [place], [address], [place]. tel: [phone] [facility], [address], [place], [place], [address] , [place] tel: [phone] [facility] No Information 4 Katelyn Riosin. [address] [facility] [address], [place], [place], [address], [place]. tel: [phone] [facility], [address], [place], [place], [address] , [place] tel: [phone] [facility] No Information 4 Katelyn Riosin. [address] [facility] [address], [place], [place], [address], [place]. tel: [phone] [facility], [address], [place], [place], [address] , [place] tel: [phone] [facility] No Information 4 Katelyn Stroud. [address] [facility] [address], [place], [place], [address], [place]. tel: [phone] [facility], [address], [place], [place], [address] , [place] tel: [phone] [facility] No Information 4 Katelyn Riosin. [address] [facility] [address], [place], [place], [address], [place]. tel: [phone] [facility], [address], [place], [place], [address] , [place] tel: [phone] [facility] No Information 4 Katelyn Riosin. [address] [facility] [address], [place], [place], [address], [place]. tel: [phone] [facility], [address], [place], [place], [address] , [place] tel: [phone] [facility] No Information 4 Katelyn Stroud. [address] [facility] [address], [place], [place], [address], [place]. tel: [phone] [facility], [address], [place], [address] , [place] tel: [phone] [facility] No Information 4 Katelyn Stroud. [address] [facility] [address], [place], [place], [address], [place]. tel: [phone] [facility], [address], [place], [place], [address] , [place] tel: [phone] [facility] No Information 4 Katelyn Stroud. [address] [facility] [address], [place], [place], [address], [place]. tel: [phone] [facility], [address], [place], [address] , [place] tel: [phone] [facility] No Information 4 Katelyn Stroud. [address] [facility] [address], [place], [place], [address], [place]. tel: [phone] [facility], [address], [place], [address] , [place] tel: [phone] [facility] No Information 8 4 Katelyn Riosin. [address] [facility] [address], [place], [place], [address], [place]. tel:[phone] [facility], [address], [place], [place], [address] , [place] tel: [phone] [facility] No Information 0 1 4 Katelyn Stroud. [address] [facility] [address], [place], [place], [address], [place]. tel: [phone] [facility], [address], [place], [place], [address] , [place] tel: [phone] [facility] No Information 4 Katelyn Riosin. [address] [facility] [address], [place], [place], [address], [place]. tel: [phone] [facility], [address], [place], [address] , [place] tel: [phone] [facility] No Information 0 4 Katelyn Stroud. [address] [facility] [address], [place], [place], [address], [place]. tel: [phone] [facility], [address], [place], [place], [address] , [place] tel: [phone] [facility] No Information 4 Katelyn Stroud. [address] [facility] [address], [place], [place], [address], [place]. tel:[phone] [facility], [address], [place], [address] , [place] tel: [phone] [facility] No Information 4 Katelyn Stroud. [address] [facility], [place], [place], [address], [place]. tel: [phone] [facility], [address], [place], [place], [address] , [place] tel: [phone] [facility] No Information 4 Katelyn Stroud. [address] [facility], [place], [place], [address], [place]. tel: [phone] Consult, Level III /Office [facility], [address], [place], [place], [address] , [place] tel: [phone] [facility] Rhinitis (A) (chief complaint)Ur ticaria/Sandy oedema (chief complaint) Rhinitis Due To Pollen 4 Katelyn Stroud. [address], [place], [place], [address], [place]. tel: [phone] Referring Provider: Rikki Oh MD, [address], [place], [address]. tel: [phone] [facility], [address], [place], [place], [address] , [place] tel: [phone] [facility] Allergic Rhinitis NosHypertroph y T And A 1 Adriano Brandt. [address], [address], [place], [place], [address], [place]. tel:[phone] Referring Provider: Casi Samuels, [address], [place], [address]. tel:[phone] Family History Family Member Type Diagnosis Age At Onset Mother Problem (finding) raised blood lipids Family H /O Problem (finding) Cancer, breast Mother Problem (finding) hypertension Mother Problem (finding) Thyroid disease Father Problem (finding) Allergies Mother Problem (finding) Hearing loss Father Problem (finding) hypertension Father Problem (finding) raised blood lipids Payers Payer name Insurance type Covered constitution party ID Authoriza tion(s) No Information Social History Type Description Quantity Date Captured Comments Sex Female Smoking Status No Information Chief Complaint And Reason For Visit No Information Reason For Referral Reason For Referral No Information Plan Of Treatment Date Type Action Status Future Order: Lab Order Aerobic Bacterial Culture ([id number]), Collected on: , Sent on: Sent History Of Present Illness Encounter Date Complaint History Of Prese nt Illness follow up PREVIOUS HPI: (11/11/2021) ALLERGY SYMPTOMS [...] nasal sprays in the past without relief. Mar-22-2023 allergy symptoms (comments) Loyda henderson is a [...] she's very happy with how she's doing. allergy symptoms follow up PREVIOUS HPI: (0 12/13/2017) ALLERGY [...] almonst immediate diarrhea. She'll be seeing a service sprinkler helper in December. PREVIOUS HPI: (12/13/2017) FOLLOW UP [...] the shots. Since she's been at school ([facility] in [place] [facility] [place]), she gets her shots at the [facility]. It's been difficult for her to get [...] the shots. Since she's been at school ([employer] [facility] [employer] in [place] [facility] [place]), she gets her shots at the [facility]. It's been difficult for her to get [...] almonst immediate diarrhea. She'll be seeing a service sprinkler helper in December. allergy symptoms nosebleed The patient [...] had septo for anatomy control. allergy symptoms (comments) Loyda henderson is an 17 year old woman with allergic rhinitis on immunotherapy. She's been receiving allergy shots since 05/2014. She receives shots to TREE; GRASS; RAGWEED/WEED1/WEED2/DUST MITE; CAT/DOG. When she was first starting on shots, she had 2 episodes where she had to go to the ER because of reactions to the shots. Since she's been at school ([employer] [facility] [employer] in [place] [facility] [place]), she gets her shots at the [facility]. It's been difficult for her to get [...] pancakes or waffles. allergy symptoms The patient den ies cough, dizziness, ear pain, headache, hoarseness, nasal congestion, nausea, post nasal drainage, sneezing and urticaria. nasal congestion Onset: gradual. Severity: moderate. It [...] The symptoms occur constantly. nasal congestion Onset: year ago . Severity: moderate. It occurs in both nostrils. The patient describes it as complete. It occurs continuously. The problem is worsening. Denies relieving factors. Associated symptoms include deviated septum, facial pain, headache, nasal drainage (clear), nasal drainage (posterior) and snoring (severe). Additional information: pt has failed on nasonex , flonase , dymista, and saline washes. Nasal obstruction The symptoms a re reported as being severe. The symptoms occur constantly. The location is bilaterally. Nasal obstruction The symptoms a re reported as being moderate. The symptoms occur constantly. The location is bilateral. pt has failed with flonase and nasonex and dymista nasal congestion Onset: gradual. Severity: moderate. It occurs in both nostrils. The patient describes it as partial. It occurs continuously. The problem is worsening. Associated symptoms include deviated septum, nasal drainage (posterior) and snoring (mild). Pertinent negatives include facial pain, food allergies and headache. allergy symptoms allergy symptoms (comments) Loyda henderson [...] a week. This usually happens with exercise. nosebleed The patient pres ents with a nosebleed that began gradually. The patient has had , with the date of the last nosebleed being 04/29/2016. The bleeding appears to be from left nostril. The patient denies easy bruising, fever, headache or nausea. nasal congestion Onset: year ago . It occurs occasionally. The problem fluctuates. Denies relieving factors. Associated symptoms include deviated septum. Pertinent negatives include headache and snoring (mild). nasal congestion Onset: gradual. Severity: moderate. It occurs in both nostrils. It occurs continuously. The problem is worsening. Associated symptoms include nasal drainage (clear) and seasonal allergies. Pertinent negatives include facial pain, food allergies and nasal drainage (posterior). nosebleed The patient pres ents with a nosebleed that began gradually. The problem has worsened. The patient has had , with the date of the last nosebleed being 04/17/2016. The bleeding appears to be from both nostrils. The patient is also experiencing nasal congestion and rhinitis. The patient denies diplopia, ear infections, easy bruising, fever, nausea, sore throat or tinnitus. ear fullness Onset: month ago . It occurs constantly. The problem is with no change. Associated symptoms include congestion (nasal). Pertinent negatives include cough, fever, nausea and vomiting. rhinitis, allergic (comments) Rickey lester is a [...] fever, nausea, shortness of breath, vomiting, wheezing. Food Allergy (comments) Allergic reaction about 2w [...] Of note, patient has always previously eaten Ujlianna apples, many times per day, without issue. This particular apple was a Gala apple. rhinitis, allergic (comments) Sy mptoms much improved on IT. Has been receiving 0.25 ml as maintenance. Slight flare of symptoms a few weeks ago. C/O congestion. PCP treated w/ floanse for a few weeks with benefit, and now off all allergy meds. Did have mild systemic reaction after last injection 5d ago. [place] fine 30 min after injection, but 2h later, developed warmth, flushing, hives of face, spread down to chest. No SOB or other symptoms. Resolved w/ benadryl. States she had taken Renetta on night prior to IT, as per routine. rhinitis, allergic (comments) Sy mptoms much improved on IT, occasional sneezing, off all meds. Had mild systemic rxn 2h after last injection. Pt took AH pre-med on morning of rxn. [place] fine 30 min after injection, but 2h later, developed warmth, flushing, hives of face, spread down to chest. No SOB or other symptoms. Resolved w/ benadryl. rhinitis, allergic Symptoms are occasional, mild and improving. The patient is also experiencing sneezing. The patient denies nasal congestion, nasal drainage and itchy eyes. Functional Status Date Functional Assessmen t No Information Instructions Date Instruction Additional Infor yudi Continue avoidance o f known food allergens-Epinephrine auto injector in the event of an accidental exposure leading to a severe potentially life threatening reaction Related to Dermatitis due to ingested food -Continue Xolair-Con tinue Symbicort-Albuterol as needed. Call/follow up if respiratory symptoms develop or the need for Albuterol arises more than twice a week Related to Moderate persistent asthma, uncomplicated -Continue Xolair 300 mg every 4 weeks-Call/follow [...] until further evaluation with Dr. Byers through [place]. Related to Generalized skin eruption due to [...] to milk and casein) -Follow up with service sprinkler helper as well re: GI symptoms Related to [...] shots. She would like to find an globe mounter near [place] instead of continuing shots at the [facility]. Will try to coordinate with an globe mounter in the area and will send vials [...]
--- OUTSIDE RECORDS SUMMARY | 2025-03-09 21:00 | XMS_ITS | Data Portability ---
Author Organization [place] - .[employer] [place] Address [address] [place] [address] Care Team Providers Care Motorman/Woman Name Role Phone TEODORO HAIR Neurologist Assessment No assessment recorded. Plan of Treatment Reminders Order Date Submit Date Provider Last Modified By Organization Details Last Modified Time Details Appointments None recorded . Lab None recorded . Referral neurolog ist referral - Urgent 2022 023 [id number] Teodoro Hari MD, [address] [place] [address], [address], 3 12:01:36 ophthalm ologist referral - Urgent 2022 023 [id number] Myla Samuel MD, [address] [facility], [place] [address], [place], [address], 3 12:01:36 Procedures None recorded . Surgeries None recorded . Imaging MR, angiogra m, brain, w/o contrast 2022 023 [email or web address] [facility] Radiology[facility]All Locations, [address] [place], [address], 3 07:59:08 MRI, brain, w/o contrast 2022 023 [email or web address] [facility], [address] [place], [address], 3 07:59:09 Medication Orders amoxicil juan carlos 875 mg tablet 2024 025 [facility]/Pharmacy #[id number], [address] [place], [address], 5 10:12:11 fluticas one propiona te 50 mcg/actu ation nasal spray,saldivar spension 2024 025 [facility]/Pharmacy #6026, [address] [place], [address], 5 10:12:11 Imitrex 100 mg tablet [address]/Pharmacy #6026, [address] [place], [address], 5 09:20:11 Imitrex 50 mg tablet [address]/Pharmacy #6026, [address] [facility] [address], 5 09:20:29 Vistaril 25 mg capsule [address]/Pharmacy #6026, [address] [facility] [address], 5 09:20:08 Maxitrol 3.5 mg/g-10, 000 unit/g-0 .1 % eye ointment 2021 023 [facility]/Pharmacy #6026, [address] [facility] [address], 3 15:54:53 Patient TargetsNo targets recorded. Patient Instructions Encounter Date Encounter Id Patient Instructions Last Modified By Organization Details Last Modified Time 09/29/2022 [id number] A healthy lifestyle: care instructions dalila Not available 09/29/2022 13:58:24 Thank you for visiting [facility].There are two ways to view your lab results: : ? 1. ? ? ? The studentSN debbie is available to all patients 18 and older in the Debbie Store and [employer] Play. First-time debbie users will need to create an account; please note you? l l need to select a login and password for the debbie versus just using your patient portal login credentials. Your lab results will be posted to the studentSN debbie as soon as they? r e available. ? 2. ? ? ? Via email , as soon as lab results are available. If you don? t receive an email within the estimated time frame, give our Aftercare team a call at [phone]. Allergic Reaction Your Care Instructions An allergic reaction is an excessive response from your immune system to a medicine, chemical, food, insect bite, or other substance. A reaction can range from mild to life-threatening. Some people have a mild rash, hives, and itching or stomach cramps. In severe reactions, swelling of your tongue and throat can close up your airway so that you cannot breathe. Follow-up care is a persaud part of your treatment and safety. Be sure to make and go to all appointments, and call your doctor if you are having problems. It''s also a good idea to know your test results and keep a list of the medicines you take. How can you care for yourself at home? If you know what caused your allergic reaction, be sure to avoid it. Your allergy may become more severe each time you have a reaction. Take an usij-irc-lacesry antihistamine, such as cetirizine (Zyrtec) or loratadine (Claritin), to treat mild symptoms. Read and follow directions on the label. Some antihistamines can make you feel sleepy. Do not give antihistamines to a child unless you have checked with your doctor first. Mild symptoms include sneezing or an itchy or runny nose; an itchy mouth; a few hives or mild itching; and mild nausea or stomach discomfort. Do not scratch hives or a rash. Put a cold, moist towel on them or take cool baths to relieve itching. Put ice packs on hives, swelling, or insect stings for 10 to 15 minutes at a time. Put a thin cloth between the ice pack and your skin. Do not take hot baths or showers. They will make the itching worse. Your doctor may prescribe a shot of epinephrine to carry with you in case you have a severe reaction. Learn how to give yourself the shot and keep it with you at all times. Make sure it is not . Go to the emergency room every time you have a severe reaction, even if you have used your shot of epinephrine and are feeling better. Symptoms can come back after a shot. Wear medical alert jewelry that lists your allergies. You can buy this at most [employer]. If your child has a severe allergy, make sure that his or her teachers, babysitters, coaches, and other caregivers know about the allergy. They should have an epinephrine shot, know how and when to give it, and have a plan to take your child to the hospital. When should you call for help? Give an epinephrine shot if: You think you are having a severe allergic reaction. You have symptoms in more than one body area, such as mild nausea and an itchy mouth. After giving an epinephrine shot call 911, even if you feel better. Call 911 if: You have symptoms of a severe allergic reaction. These may include: Sudden raised, red areas (hives) all over your body. Swelling of the throat, mouth, lips, or tongue. Trouble breathing. Passing out (losing consciousness). Or you may feel very lightheaded or suddenly feel weak, confused, or restless. You have been given an epinephrine shot, even if you feel better. Call your doctor now or seek immediate medical care if: You have symptoms of an allergic reaction, such as: A rash or hives (raised, red areas on the skin). Itching. Swelling. Belly pain, nausea, or vomiting. Watch closely for changes in your health, and be sure to contact your doctor if: You do not get better as expected. [email or web address] Not available 09/29/2022 09:37:58 10/28/2022 [id number] A healthy lifestyle: care instructions [email or web address] Not available 10/28/2022 21:01:47 Thank you for visiting [facility].There are two ways to view your lab results: : ? 1. ? ? ? The studentSN debbie is available to all patients 18 and older in the Debbie Store and [employer] Play. First-time debbie users will need to create an account; please note you? l l need to select a login and password for the debbie versus just using your patient portal login credentials. Your lab results will be posted to the studentSN debbie as soon as they? r e available. ? 2. ? ? ? Via email , as soon as lab results are available. If you don? t receive an email within the estimated time frame, give our Aftercare team a call at [phone]. Migraine Headache Your Care Instructions:Migra ebenezer are painful, throbbing headaches that often start on one side of the head. They may cause nausea and vomiting and make you sensitive to light, sound, or smell. Without treatment, migraines can last from 4 hours to a few days. Medicines can help prevent migraines or stop them after they have started. Your doctor can help you find which ones work best for you. Follow-up care is a persaud part of your treatment and safety. Be sure to make and go to all appointments, and call your doctor if you are having problems. It's also a good idea to know your test results and keep a list of the medicines you take. How can you care for yourself at home? Do not drive if you have taken a prescription pain medicine. Rest in a quiet, dark room until your headache is gone. Close your eyes, and try to relax or go to sleep. Don't watch TV or read. Put a cold, moist cloth or cold pack on the painful area for 10 to 20 minutes at a time. Put a thin cloth between the cold pack and your skin. Use a warm, moist towel or a heating pad set on low to relax tight shoulder and neck muscles. Have someone gently massage your neck and shoulders. Take your medicines exactly as prescribed. Call your doctor if you think you are having a problem with your medicine. You will get more details on the specific medicines your doctor prescribes. Be careful not to take pain medicine more often than the instructions allow. You could get worse or more frequent headaches when the medicine wears off. To prevent migraines Keep a headache diary so you can figure out what triggers your headaches. Avoiding triggers may help you prevent headaches. Record when each headache began, how long it lasted, and what the pain was like. (Was it throbbing, aching, stabbing, or dull?) Write down any other symptoms you had with the headache, such as nausea, flashing lights or dark spots, or sensitivity to bright light or loud noise. Note if the headache occurred near your period. List anything that might have triggered the headache. Triggers may include certain foods (chocolate, cheese, wine) or odors, smoke, bright light, stress, or lack of sleep. If your doctor has prescribed medicine for your migraines, take it as directed. You may have medicine that you take only when you get a migraine and medicine that you take all the time to help prevent migraines. If your doctor has prescribed medicine for when you get a headache, take it at the first sign of a migraine, unless your doctor has given you other instructions. If your doctor has prescribed medicine to prevent migraines, take it exactly as prescribed. Call your doctor if you think you are having a problem with your medicine. Find healthy ways to deal with stress. Migraines are most common during or right after stressful times. Take time to relax before and after you do something that has caused a migraine in the past. Try to keep your muscles relaxed by keeping good posture. Check your jaw, face, neck, and shoulder muscles for tension. Try to relax them. When you sit at a desk, change positions often. And make sure to stretch for 30 seconds each hour. Get plenty of sleep and exercise. Eat meals on a regular schedule. Avoid foods and drinks that often trigger migraines. These include chocolate, alcohol (especially red wine and port), aspartame, monosodium glutamate (MSG), and some additives found in foods (such as hot dogs, cantu, cold cuts, aged cheeses, and pickled foods). Limit caffeine. Don't drink too much coffee, tea, or soda. But don't quit caffeine suddenly. That can also give you migraines. Do not smoke or allow others to smoke around you. If you need help quitting, talk to your doctor about stop-smoking programs and medicines. These can increase your chances of quitting for good. If you are taking control pills or hormone therapy, talk to your doctor about whether they are triggering your migraines. When should you call for help? Call 911 anytime you think you may need emergency care. For example, call if: You have signs of a stroke. These may include: Sudden numbness, paralysis, or weakness in your face, arm, or leg, especially on only one side of your body. Sudden vision changes. Sudden trouble speaking. Sudden confusion or trouble understanding simple statements. Sudden problems with walking or balance. A sudden, severe headache that is different from past headaches. Call your doctor now or seek immediate medical care if: You have new or worse nausea and vomiting. You have a new or higher fever. Your headache gets much worse. Watch closely for changes in your health, and be sure to contact your doctor if: You are not getting better after 2 days (48 hours). [email or web address] Not available 10/28/2022 16:15:18 12/08/2024 [id number] A healthy lifestyle: care instructions [email or web address] Not available 12/08/2024 10:12:11 Acute Sinusitis: Care Instructions [email or web address] Not available 12/08/2024 10:12:11 Thank you for visiting [facility]. We may be calling you to review your lab results or schedule a follow up appointment. The call will be through an automated system which asks you to press a persaud to speak with one of our agents. Please be on the lookout for this call and listen to the message in its entirety. You may also view your lab results using the studentSN debbie, available in the Debbie Store and [employer] Play. First-time debbie users will need to create an account; please note you? l l need to select a login and password for the debbie versus just using your patient portal login. Your lab results will be posted to the studentSN debbie as soon as they? r e available. Need a note to excuse you from work or school? You can submit a request online at [email or web address]. We will respond to your request within 2 business days If you have any questions regarding your visit, our Aftercare department can be reached at [phone]. Our hours are Friday ? Friday from 8 am ? 11 pm or Friday/Friday from 9a ? 8p. Sinusitis Sinusitis is an infection of the lining of the sinus cavities in your head. Sinusitis often follows a cold. It causes pain and pressure in your head and face. In most cases, sinusitis gets better on its own in 1 to 2 weeks. But some mild symptoms may last for several weeks. Sometimes antibiotics are needed. Follow-up care is a persaud part of your treatment and safety. Be sure to make and go to all appointments, and call your doctor if you are having problems. It's also a good idea to know your test results and keep a list of the medicines you take. How can you care for yourself at home? Take an cdor-tzn-lcmkjyh pain medicine, such as acetaminophen (Tylenol), ibuprofen (Advil, Motrin), or naproxen (Aleve). Read and follow all instructions on the label. If the doctor prescribed antibiotics, take them as directed. Do not stop taking them just because you feel better. You need to take the full course of antibiotics. Be careful when taking xllr-xdm-xwmyxnr cold or flu medicines and Tylenol at the same time. Many of these medicines have acetaminophen, which is Tylenol. Read the labels to make sure that you are not taking more than the recommended dose. Too much acetaminophen (Tylenol) can be harmful. Breathe warm, moist air from a steamy shower, a hot bath, or a sink filled with hot water. Avoid cold, dry air. Using a humidifier in your home may help. Follow the directions for cleaning the machine. Use saline (saltwater) nasal washes to help keep your nasal passages open and wash out mucus and bacteria. You can buy saline nose drops at a grocery store or drugstore. Or you can make your own at home by adding 1 teaspoon of salt and 1 teaspoon of baking soda to 2 cups of distilled water. If you make your own, fill a bulb syringe with the solution, insert the tip into your nostril, and squeeze gently. Blow your nose. Put a hot, wet towel or a warm gel pack on your face 3 or 4 times a day for 5 to 10 minutes each time. Try a decongestant nasal spray like oxymetazoline (Afrin). Do not use it for more than 3 days in a row. Using it for more than 3 days can make your congestion worse. When should you call for help? Call your doctor now or seek immediate medical care if: You have new or worse swelling or redness in your face or around your eyes. You have a new or higher fever. Watch closely for changes in your health, and be sure to contact your doctor if: You have new or worse facial pain. The mucus from your nose becomes thicker (like pus) or has new blood in it. You are not getting better as expected. [email or web address] Not available 12/08/2024 09:28:28 Reason for Referral Neurologist Referral for Luis E morgan Urgent Referring Physician: [facility], Encounter Date: 10/28/2022 [employer] Referral for Swelling around eyes Urgent Referring Physician: [facility], Encounter Date: 10/28/2022 Results Created Date Observation Date Name Description Value Unit Range Abnormal Flag Note LastModifiedBy Organization Detail LastModifiedTime 11/04/19 23 11/04/2022 MRI, head, w/o contr ast No observ ation record ed. [id number] [id number] [facility] [address] [facility], [place], [address], 11/06/2022 07:12:27 11/04/19 23 11/04/2022 MR, angio gram, head, w/o contr ast No observ ation record ed. [id number] [id number] [facility] [address] [facility], [place], [address], 11/06/2022 07:03:28 Result Notes None recorded. Problems Name Problem SNOMED Code Status Onset Date Resolution Date Notes Provider Name and Address Organization Details Recorded Time Hypothyroi dism 42577185 Active 2024 DELBERT Estrada - .[facility] 5 09:19:53 Migraine 78504196 Active 2022 ophlamic and auditory Joni DELBERT Rosenberg - .[facility] 3 16:24:31 Problem Notes None recorded. 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 Jessica MANDUJANO - .[facility] 10/30/2022 13:59:51 2 Orthopedic Surgery completed Jenna MANDUJANO - .[facility] 11/05/2022 11:38:12 7 Plastic Surgery completed Jenna MANDUJANO - .[facility] 11/05/2022 11:38:12 nasal septoplasty completed Jessica MANDUJANO - .[facility] 10/30/2022 14:00:11 Imaging Results Imaging Date Name Status LastModified by Organiz ation Details LastModified Time 11/04/2022 MRI, head, w/o contrast completed [id number] [id number] [facility] [address] [facility], [place], [address], 11/06/2022 07:12:27 11/04/2022 MR, angiogram, head, w/o contrast completed [id number] [id number] [address] [facility], [place], [address], 11/06/2022 07:03:28 Procedure Notes None recorded. Medical Equipment None Reported. Allergies Allergen ID Allergen Name Allergen Category Reaction Reaction Severity Criticality Documentation Date Start Date Code Code System Note Provider Name and Address Organization Details Recorded Time 4891516 Zithromax medicatio n Not available Not available Not available 09/29/2022 35347 4 RxNorm DELBERT Recinos - .[facility] 2 09:26:36 [id number] Advil medicatio n Not available Not available Not available 09/29/2022 47912 0 RxNorm DELBERT Recinos - .[facility] 2 09:26:41 [id number] oxycodone medicatio n Not available Not available Not available 09/29/2022 7804 RxNorm DELBERT Recinos - .[facility] 2 09:26:45 Medications Name Sig Start Date Stop Date Status Note LastModified by Organization Details LastModified Time sumatripta n 50 mg tablet Take 1 tablet by oral route every 2 hours until migraine subsides , max 200mg/da y (4 tablets) 12/08 completed Not Available Not Available Not Available acetaminop hen 500 mg tablet TAKE 2 TABLETS BY MOUTH EVERY 8 HOURS NEEDED FOR PAIN 10/30 completed Not Available Not Available Not Available amoxicilli n 875 mg tablet Take 1 tablet twice a day by oral route for 10 days. 2024 active Not Available Not Available Not Avai lable Maxitrol 3.5 mg/g-10,00 0 unit/g-0.1 % eye ointment APPLY A SMALL AMOUNT INTO THE CONJUNCT IVAL SAC(S) IN AFFECTED EYE(S) BY OPHTHALM IC ROUTE 4 TIMES PER DAY- For 7 Days 10/28 completed Not Available Not Available Not Available Imitrex 100 mg tablet Take 1 tablet every day by oral route as needed for 30 days. 12/08 completed Not Available Not Available Not Available epinephrin e 0.3 mg/0.3 mL injection, auto-injec tor INJECT IM FOR SEVERE ALLERGIC REACTION active Not Available Not Available No t Available ondansetro n 4 mg disintegra ting tablet DISSOLVE 1 TABLET BY MOUTH 3 TIMES A DAY 10/30 completed Not Available Not Available Not Available fluticason e propionate 50 mcg/actuat ion nasal spray,susp ension [place] one spray into each nostril twice a day for 14 days 2024 active Not Available Not Available Not Avai lable medroxypro gesterone 150 mg/mL intramuscu lar suspension INJECT 1 ML INTO THE MUSCLE EVERY 3 MONTHS. 12/08 completed Not Available Not Available Not Available oxycodone 5 mg tablet TAKE 1 TO 2 TABLETS BY MOUTH EVERY 4 TO 6 HOURS NEEDED FOR PAIN 10/30 completed Not Available Not Available Not Available hydroxyzin e pamoate 25 mg capsule Take 1-2 capsule( s) 3 TIMES A DAY by oral route NEEDED FOR 14 DAYS 12/08 completed as needed Not Available Not Available Not Available levothyrox ine active Not Available Not Available Not Available moxifloxac in 0.5 % viscous eye drops INSTILL 1 DROP INTO BOTH EYES 3 TIMES A DAY X 1 WEEK 12/08 completed Not Available Not Available Not Available Eliquis 2.5 mg tablet TAKE 1 TABLET BY MOUTH 2 TIMES A DAY 10/30 completed Not Available Not Available Not Available Xolair 150 mg/mL subcutaneo us syringe 12/08 completed Not Available Not Available Not Available Vitals Date Recorded Heart rate Body temperature Respiratory rate Oxygen saturation Oxygen saturation in Arterial blood by Pulse oximetry Systolic blood pressure Diastolic blood pressure Provider Name and Address Organization Details Last Updated DateTime 2 102 /min 98.4 [degF] 16 /min 98 % 98 % 129 mm[Hg] 85 mm[Hg] Nereida MANDUJANO - .[facility] 2 09:28:20 Date Recorded Body temperature Respiratory rate Oxygen saturation Oxygen saturation in Arterial blood by Pulse oximetry Heart rate Systolic blood pressure Diastolic blood pressure Provider Name and Address Organization Details Last Updated DateTime 3 99.6 [degF] 16 /min 98 % 98 % 99 /min 118 mm[Hg] 75 mm[Hg] Joni Mcmillan [place] - .[facility] 3 15:55:07 Date Recorded Body weight Body mass index (BMI) Body height Body temperature Oxygen saturation Oxygen saturation in Arterial blood by Pulse oximetry Heart rate Systolic blood pressure Diastolic blood pressure Provider Name and Address Organization Details Last Updated DateTime 3 32472.3 g 32.3 kg/m2 154.94 cm 98.9 [degF] 97 % 97 % 106 /min 139 mm[Hg] 85 mm[Hg] Jessica MANDUJANO - .[facility] 3 14:03:07 Date Recorded Body height Body mass index (BMI) Body weight Body temperature Oxygen saturation Oxygen saturation in Arterial blood by Pulse oximetry Heart rate Respiratory rate Systolic blood pressure Diastolic blood pressure Provider Name and Address Organization Details Last Updated DateTime 3 154.94 cm 32.3 kg/m2 25067.3 g 97.5 [degF] 100 % 100 % 98 /min 16 /min 134 mm[Hg] 88 mm[Hg] Jessica MANDUJANO - .[facility] 3 11:41:58 Date Recorded Body height Body mass index (BMI) Body weight Respiratory rate Body temperature Heart rate Oxygen saturation Oxygen saturation in Arterial blood by Pulse oximetry Systolic blood pressure Diastolic blood pressure Provider Name and Address Organization Details Last Updated DateTime 5 154.94 cm 40.6 kg/m2 83216.3 6 g 16 /min 98.2 [degF] 93 /min 97 % 97 % 128 mm[Hg] 87 mm[Hg] Angel MANDUJANO - .[facility] 5 09:21:55 Social History Question Answer Notes LastModified by [employer] Details LastModified Time Tobacco Smoking Status Never Smoker DELBERT Recinos - .[facility] 09/29/2022 09:28:58 What Is Your Level Of Caffeine Consumption? Occasional Information not available 11/05/2022 What Type Of Diet Are You Following? REGULAR Information not available 11/05/2022 RISK LEVEL - Segmentation Level 2 - Chronic Dx/primary Care Treatable [email or web address] Information not available 12/07/2022 What Was The Date Of Your Most Recent Tobacco Screening? 10/30/2022 Information not available 11/05/2022 Sex: Unknown Functional Status Question Answer Note LastModified by [employer] ion Details LastModified Time Do you use any illicit or recreational drugs? No Information not available 11/05/2022 Do you or have you ever used any other forms of tobacco or nicotine? No [email or web address] Information not available 10/30/2022 What is your level of alcohol consumption? None Information not available 11/05/2022 Mental Status None recorded. Family History Relationship Description Onset Age of this Age Resolved Age Notes LastModified by Organization Details LastModified Time Father No current problems or disability [email or web address] Not available 09/29 09:28:53 Father Hypertensive disorder 30 [email or web address] Not available 2022 13:58:00 Father Hyperlipidem ia [email or web address] Not available 2022 11:38:12 Mother No current problems or disability [email or web address] Not available 09/29 09:28:53 Mother Essential hypertension [email or web address] Not available 11:38:12 Medical History Condition Response Anxiety/Depression Y High Cholesterol Y Gynecological HistoryNo gynecological history recorded. Obstetrics History GPAL:G 0 P 0 0 0 0 Immunizations Vaccine Type Date Status Note Provider Nam e and Address Organization Details Recorded Time influenza, unspecified formulation 7 completed DELBERT Bailey - [facility] 10/30/2022 13:56:01 Hep B, unspecified formulation 9 completed DELBERT Bailey - [facility] 10/30/2022 13:56:01 HPV, quadrivalent 4 completed DELBERT Bailey - .[facility] 10/30/2022 13:56:01 meningococcal MCV4P 5 completed DELBERT Bailey - [facility] 10/30/2022 13:56:01 HPV, quadrivalent 4 completed DELBERT aBiley - .[facility] 10/30/2022 13:56:01 MMR 4 completed DELBERT Bailey - [facility] 10/30/2022 13:56:01 Hep A, unspecified formulation 7 completed DELBERT Bailey - [facility] 10/30/2022 13:56:01 Hep A, unspecified formulation 6 completed DELBERT Bailey - [facility] 10/30/2022 13:56:01 meningococcal MCV4P 2 completed DELBERT Bailey - [facility] 10/30/2022 13:56:01 Novel Onpktempu-[id number], nasal 9 completed DELBERT Bailey - [facility] 10/30/2022 13:56:01 DTaP 9 completed DELBERT Bailey - [facility] 10/30/2022 13:56:01 measles 0 completed DELBERT Bailey - [facility] 10/30/2022 13:56:01 meningococcal B, recombinant 7 completed DELBERT Bailey - .[facility] 10/30/2022 13:56:01 Influenza, live, trivalent, intranasal 4 completed DELBERT Bailey - .[facility] 10/30/2022 13:56:01 Hib (PRP-OMP) 9 completed DELBERT Bailey - .[facility] 10/30/2022 13:56:01 Influenza, live, trivalent, intranasal 2 completed DELBERT Bailey - [facility] 10/30/2022 13:56:01 pneumococcal conjugate PCV 7 1 completed DELBERT Bailey - [facility] 10/30/2022 13:56:01 Influenza, live, quadrivalent, intranasal 5 completed DELBERT Bailey - [facility] 10/30/2022 13:56:01 rubella 4 completed DELBERT Bailey - [facility] 10/30/2022 13:56:01 IPV 9 completed DELBERT Bailey - [facility] 10/30/2022 13:56:01 DTaP 0 completed DELBERT Bailey - [facility] 10/30/2022 13:56:01 Hep B, unspecified formulation 9 completed DELBERT Bailey - [facility] 10/30/2022 13:56:01 IPV 9 completed DELBERT Bailey - [facility] 10/30/2022 13:56:01 Influenza, live, trivalent, intranasal 8 completed DELBERT Bailey - [facility] 10/30/2022 13:56:01 Influenza, split virus, quadrivalent, PF 7 completed DELBERT Bailey - [facility] 10/30/2022 13:56:01 DTaP 5 completed DELBERT Bailey - .[facility] 10/30/2022 13:56:01 Hib (PRP-OMP) 9 completed DELBERT Bailey - .[facility] 10/30/2022 13:56:01 influenza, unspecified formulation 3 completed Jessica figueroa, DELBERT - .[facility] 10/30/2022 13:56:01 MMR 0 completed DELBERT Bailey - [facility] 10/30/2022 13:56:01 mumps 4 completed Jessica figueroa, DELBERT - .[facility] 10/30/2022 13:56:01 meningococcal B, recombinant 6 completed DELBERT Bailey - [facility] 10/30/2022 13:56:01 IPV 9 completed DELBERT Bailey - [facility] 10/30/2022 13:56:01 IPV 5 completed DELBERT Bailey - [facility] 10/30/2022 13:56:01 DTaP 9 completed DELBERT Bailey - [facility] 10/30/2022 13:56:01 Influenza, split virus, quadrivalent, PF 6 completed DELBERT Bailey - [facility] 10/30/2022 13:56:01 mumps 0 completed DELBERT Bailey - .[facility] 10/30/2022 13:56:01 DTaP 9 completed DELBERT Bailey - .[facility] 10/30/2022 13:56:01 Hib (PRP-OMP) 9 completed DELBERT Bailey - .[facility] 10/30/2022 13:56:01 Tdap 0 completed DELBERT Bailey - .[facility] 10/30/2022 13:56:01 Influenza, live, trivalent, intranasal 0 completed DELBERT Bailey - .[facility] 10/30/2022 13:56:02 Hib (PRP-OMP) 0 completed DELBERT Bailey - [facility] 10/30/2022 13:56:02 influenza, unspecified formulation 6 completed DELBERT Bailey - [facility] 10/30/2022 13:56:02 varicella 7 completed DELBERT Bailey - [facility] 10/30/2022 13:56:02 rubella 0 completed DELBERT Bailey - [facility] 10/30/2022 13:56:02 varicella 0 completed DELBERT Bailey - [facility] 10/30/2022 13:56:02 influenza, unspecified formulation 3 completed DELBERT Bailey - [facility] 10/30/2022 13:56:02 Influenza, live, trivalent, intranasal 1 completed DELBERT Bailey - [facility] 10/30/2022 13:56:02 Influenza, live, trivalent, intranasal 3 completed DELBERT Bailey - .[facility] 10/30/2022 13:56:02 Hep B, unspecified formulation 9 completed DELBERT Bailey - [facility] 10/30/2022 13:56:02 HPV, quadrivalent 4 completed DELBERT Bailey - [facility] 10/30/2022 13:56:02 influenza, unspecified formulation 5 completed DELBERT Bailey - [facility] 10/30/2022 13:56:02 Tdap 0 completed DELBERT Bailey - [facility] 10/30/2022 13:56:02 meningococcal B, recombinant 6 completed DELBERT Bailey - [facility] 10/30/2022 13:56:02 measles 4 completed DELBERT Bailey - [facility] 10/30/2022 13:56:02 Past Encounters Encounter ID Performer Location Encounter Start Date Encounter Closed Date Diagnosis/Indication Diagnosis SNOMED-CT Code Diagnosis ICD10 Code Diagnosis Note [id number] Rosa Moreno DO [facility] [place] [address] [address] 09/29/2022 09:03:06 09/29/2022 09:40:11 Allergic reaction 723196121 T78.40XA Conjunctivitis 0646845 H 10.9 [id number] Raghavendra Martinez MD [facility] [place] [address] [address] 10/28/2022 15:34:29 10/28/2022 16:24:56 Migraine 16972325 G43.909 Swelling around eyes 267 589702 R22.0 mild infraorbit al swelling [id number] Teodoro Valdivia[facility] [facility] [address] [place] [address] 10/30/2022 13:41:35 10/30/2022 15:16:40 Migraine with aura 0206575 G43.109 CONTINUE IMITREX 50 MG ONCE A DAY AT THE ONSET OF THE HEADACHE Benign exe rtional headache 583080966 G44.84 22-YEAR-OL D FEMALE WITH A PAST MEDICAL HISTORY OF LYME DISEASE, HYPERLIPID EMIA, COVID X2 WITH VASCULAR EXERTIONAL HEADACHE WORSE ON STRAINING WITH EPISODES OF VERTICAL DIPLOPIA, VERTIGO, NAUSEA AND VOMITING, PARESTHESI AND NUMBNESS IN BOTH FOREARMS AND BOTH LEGS, PRONATOR DRIFT OF THE LEFT UPPER EXTREMITY, MILD DYSMETRIA ON FINGER-TO- NOSE LEFT, DIFFICULTY WITH TANDEM GAIT, WITH SENSORY AND CEREBELLAR ATAXIA-TO RULE OUT CEREBRAL AVM VERSUS CEREBROVAS CULAR MALFORMATI ON VERSUS CEREBRAL ANEURYSM VERSUS DEMYELINAT ING DISEASE VERSUS CVA Paresthesia 06949724 R20 .2 EPISODES OF NUMBNESS IN BOTH FOREARM AND RING AND LITTLE FINGER OF BOTH HANDS SUSPECT ULNAR NEUROPATHY . CONSIDER EMG AND NERVE CONDUCTION STUDIES OF BOTH UPPER EXTREMITIE S [id number] Teodoro Valdivia[address] [facility] [address] [place] [address] 11/05/2022 11:36:47 11/05/2022 11:53:49 Migraine with aura 6064309 G43.109 IMITREX 100MG ONCE A DAY AT THE ONSET OF THE HEADACHEMR A OF HEAD WAS DONE WITHOUT CONTRAST ON NOVEMBER 04, 2022-LINDSEY L STUDYMRI brain without contrast on November 04, 2022-LINDSEY L STUDY Paresthesia 48159211 R20 .2 EPISODES OF NUMBNESS IN BOTH FOREARM AND RING AND LITTLE FINGER OF BOTH HANDS SUSPECT ULNAR NEUROPATHY . CONSIDER EMG AND NERVE CONDUCTION STUDIES OF BOTH UPPER EXTREMITIE S VERSUS POST HERPETIC NEURALGIA [id number] Gay Villa MD [facility] [place] [address] [place] [address] 12/08/2024 09:04:44 12/08/2024 09:29:43 Acute sinusitis 72584208 J01.90 Health Concerns Section Related Observation LastModified by Organization Detai ls LastModified Time None Recorded Concern Status LastModified by Organization Details LastModified Time None Recorded Advance Directives Directive None Recorded Payers Insurance Date Sequence Insurance Name Policy Number Policy Li Covered Member ID Li Member ID Guarantor Name 12/14/2024 1 [facility] [id number] Cinda Ocampo [id number] Cinda [place] 12/09/2024 2 [employer] Cinda Ocampo [id number] Cinda Ocampo 12/09/2024 2 [facility] (MEDICAID REPLACEMENT - HMO) Cinda Ocampo [id number] Cinda Ocampo 12/14/2024 1 [facility] [id number] Cinda Ocampo [id number] Cinda [place] 12/08/2024 1 [facility] (O) Jimmy Coatesy [id number] Cinda Ocampo Notes Date Note Type Note Provider Name and Address Organization Details Recorded Time 2 text/html Eye Complaint - cmdReported bypatient.Patient presents with:bilateral Eye complaint which began 2-3 days ago Pertinent findings:No eye pain; No eye redness; No eye discharge; No contact lens use; No photophobia; No eye trauma; No fever; No cough; No ear symptoms; No throat symptoms; No nasal symptoms;(+) eyelid swelling;(+) vision changeNotes:pt c/o bl eyelid swelling, fuzzy vision, and irritation when blinking. pt states she had RT foot surgery on Friday09/23/22 and was prescribed oxycodone 25 mg, eliquis 2.5 mg, and zofran 4 mg for relief. pt states she had allergic reaction to oxycodone on 09/25/22, and was evaluated at ER. Rosa oMreno DO [address] [facility],[address] [facility], [place], [address], [place] - [facility] 09/29/2022 11:56:32 3 text/html Eye Complaint - cmdReported bypatient.Patient presents with:left Eye complaint which began yesterday Pertinent findings:No eye pain; No eye redness; No eye discharge; No contact lens use; No photophobia; No eye trauma; No vision change; No fever; No cough; No ear symptoms; No throat symptoms; No nasal symptoms;(+) eyelid swellingNotes:Pt reports lt eye swelling that is under the eye, C/O intermittent LOPEZ's with visual and auditory auras. No LOPEZ now but wants a treatment if possible for when she gets a LOPEZ like this.Pt sts no recent trauma to eye, no change in vision. Pt denies any crusting to eye, no discharge. Marshall PHILIP [address] [facility],[address] [facility], [place], [address], [place] - [facility] 10/28/2022 17:37:59 3 text/html INITIAL NEUROLOGY CONSULTATIONCHIEF COMPLAINT-HEADACHE.HISTO RY OF [id number]-IEKY-OLD FEMALE WITH A PAST MEDICAL HISTORY OF ASTHMA, HYPERLIPIDEMIA, CHRONIC MIGRAINE WAS SEEN WITH A CHIEF COMPLAINT OF HEADACHE WORSE FOR THE LAST 1 WEEKLOCATION OF HEADACHE-BILATERAL FRONTOTEMPORAL HEADACHES THROBBING TYPE MOSTLY LEFT-SIDED AND AROUND THE LEFT EYEAURA-SEES BLACK DOTS IN FRONT OF THE, RINGING IN THE EARS MOSTLY THE LEFT.AGGRAVATING FACTORS-EXERTION STRAININGRELIEVING FACTORS-4 EXCEDRIN MIGRAINE AND GO TO SLEEP-SUMATRIPTANASSOCIA FERNANDA FACTORS-NAUSEA AND VOMITING. EPISODES OF DOUBLE VISION VERTICAL DIPLOPIA, EPISODES OF SPINNING-HEAVINESS IN THE LEFT ARM. NUMBNESS IN BOTH FOREARMS AND RING AND LITTLE FINGER OF BOTH HANDS. ALSO HAD EPISODES OF NUMBNESS IN BOTH LEGS AND THIGHSEPISODES OF NUMBNESS IN BOTH FOREARM AND HAND ESPECIALLY THE RING AND LITTLE FINGER OF BOTH HANDS AND ALSO SHE HAD EPISODES OF NUMBNESS IN BOTH LEGSMEDICATIONS TRIED FOR HEADACHE-SUMATRIPTAN, OXYCODONE, EXCEDRIN MIGRAINEHAD LYME DISEASE TREATED ON 2013SNORE DURING SLEEP. PATIENT WAS ACCOMPANIED BY HER SISTER WHO WAS PRESENT DURING THE NEUROLOGICAL CONSULTATION AND EXAMINATIONPAST MEDICAL HISTORY ABOVE-COVID X2 OCTOBER OF 2020 AND AugustLLERGIES-ANAPHYLAXI S WITH ADVIL.ALLERGIC TO OXYCODONE-PASSED OUT AND HAD DIFFICULTY IN BREATHING.ALLERGIC TO ZITHROMAX-HIVES AND DIFFICULTY IN BREATHING.PAST SURGICAL HISTORY-PART OF THE NAVICULAR BONE WAS REMOVED IT WAS BROKEN.SEPTOPLASTY ON NOSE.FAMILY HISTORY-SISTER HAD MIGRAINE BOTH PARENTS WERE ALIVE AND WELL Teodoro Hair MD [address] [place] [address],[address], [place], [address], [place] - [facility] 10/30/2022 14:28:58 3 text/html FOLLOW UP NEUROLOGY CONSULTATIONHISTORY OF MOSDTUSLBC-78-ABKA-OLD FEMALE WITH A PAST MEDICAL HISTORY OF ASTHMA, HYPERLIPIDEMIA, CHRONIC MIGRAINE WAS SEEN WITH A CHIEF COMPLAINT OF HEADACHE WORSE FOR THE LAST 1 WEEKLOCATION OF HEADACHE-BILATERAL FRONTOTEMPORAL HEADACHES THROBBING TYPE MOSTLY LEFT-SIDED AND AROUND THE LEFT EYEAURA-SEES BLACK DOTS IN FRONT OF THE, RINGING IN THE EARS MOSTLY THE LEFT.HEADACHES BETTER WITH IMITREXRELIEVING FACTORS-4 EXCEDRIN MIGRAINE AND GO TO SLEEP-SUMATRIPTANNUMBNES S IN BOTH FOREARMS AND RING AND LITTLE FINGER OF BOTH HANDS. ALSO HAD EPISODES OF NUMBNESS IN BOTH LEGS AND THIGHSEPISODES OF NUMBNESS IN BOTH FOREARM AND HAND ESPECIALLY THE RING AND LITTLE FINGER OF BOTH HANDS AND ALSO SHE HAD EPISODES OF NUMBNESS IN BOTH LEGSMEDICATIONS TRIED FOR HEADACHE-SUMATRIPTAN, OXYCODONE, EXCEDRIN MIGRAINEHAD LYME DISEASE TREATED ON 2013 PATIENT WAS ACCOMPANIED BY HER SISTER WHO WAS PRESENT DURING THE NEUROLOGICAL CONSULTATION AND EXAMINATIONPAST MEDICAL HISTORY ABOVE-COVID X2 OCTOBER OF 2020 AND AUGUST OF 2022-HAD TINGLING AND CRAWLING SENSATION IN BOTH FOREARMS STATUS POST SHINGLES AT AGE 13 IN FOREARMS AND LEGSALLERGIES-ANAPHYLAXI S WITH ADVIL.ALLERGIC TO OXYCODONE-PASSED OUT AND HAD DIFFICULTY IN BREATHING.ALLERGIC TO ZITHROMAX-HIVES AND DIFFICULTY IN BREATHING.PAST SURGICAL HISTORY-PART OF THE NAVICULAR BONE WAS REMOVED IT WAS BROKEN.SEPTOPLASTY ON NOSE.FAMILY HISTORY-SISTER HAD MIGRAINE Teodoro Hair MD [address] [facility],[address] [place] [address], [place], [address], [place] - [facility] 11/05/2022 11:53:00 5 text/html Nasal / Sinus complaint - cmdReported bypatient.Patient presents with:Nasal / Sinus symptoms which began 3-4 weeks ago Pertinent findings:No fever; No nose bleed; No ear complaints; No eye complaints; No cough; No shortness of breath; No foreign body;(+) sinus pain/pressure;(+) nasal discharge/congestion;(+) sore throatNotes:Pt c/o sinus pain/pressure, nasal congestion and sore throat x 3 weeks. Pt reports being diagnosed with influenza 3 weeks ago. Pt reports taking otc sinus and cold medications with no relief. Denies fever and chills. Gay Villa MD [address] [facility],[address] [place] [address], [place], [address], [place] - [facility] 12/08/2024 10:13:28 OBGyn Episode No OBEpisode recorded.
--- NOTE | 2025-03-09 21:13 | ED_ITS ---
HPI - Allergic Reaction General Chief complaint: Allergic Reaction Stated complaint: Allergic reaction Time Seen by Provider: 03/09/25 21:02 Source: patient Mode of arrival: ambulatory Limitations: no limitations History of Present Illness ED Provider: Dr. Jennifer Douglas HPI narrative: Patient comes to the emergency room complaining of an allergic reaction to Excedrin. Patient states that approximately 6 hours ago, patient took Excedrin. Patient states that she has taken this medication in the past with no reaction. Patient states that she took a nap after taking the medication and she woke up with upper swollen lips. Patient also had hives in the chest, denies any difficulty breathing or foreign body sensation in the throat. Patient states that a few hours prior to arrival, patient took 2 tablets of Benadryl. Related Data Previous Rx's ?Medication ?Instructions ?Recorded epinephrine 0.3 mg/0.3 mL 0.3 mg (0.3 mL) IM Q4H PRN 12/04/23 injection, auto-injector (EpiPen) anaphylaxis #2 ea prednisone 20 mg tablet 60 mg (3 x 20 mg) PO DAILY Asthma 11/02/24 5 days #15 tabs famotidine 40 mg tablet (Pepcid) 40 mg PO DAILY #4 tabs 03/09/25 prednisone 50 mg tablet 50 mg PO DAILY #4 tabs 03/09/25 Allergies Allergy/AdvReac Type Severity Reaction Status Date / Time azithromycin Allergy Anaphylaxis Verified 03/09/25 20:44 Beef Containing Products Allergy Anaphylaxis Verified 03/09/25 20:44 blackberry Allergy Anaphylaxis Verified 03/09/25 20:44 blueberry Allergy Anaphylaxis Verified 03/09/25 20:44 chicken derived [chicken] Allergy Anaphylaxis Verified 03/09/25 20:44 egg Allergy Anaphylaxis Verified 03/09/25 20:44 environmental allergies Allergy Unknown Verified 03/09/25 20:44 fish derived [fish] Allergy Anaphylaxis Verified 03/09/25 20:44 ibuprofen [From Advil] Allergy Anaphylaxis Verified 03/09/25 20:44 milk Allergy Anaphylaxis Verified 03/09/25 20:44 mustard Allergy Anaphylaxis Verified 03/09/25 20:44 naproxen [From Aleve] Allergy Anaphylaxis Verified 03/09/25 20:44 onion Allergy Anaphylaxis Verified 03/09/25 20:44 pork derived (porcine) Allergy Anaphylaxis Verified 03/09/25 20:44 raspberry Allergy Anaphylaxis Verified 03/09/25 20:44 strawberry Allergy Anaphylaxis Verified 03/09/25 20:44 sunflower seed Allergy Anaphylaxis Verified 03/09/25 20:44 Review of Systems Review of Systems: Constitutional : No Weight loss, No Fever, No Chills, No Night Sweats, No Fatigue, No Malaise ENT/Mouth : Complaining of swelling of upper lip, No Hearing loss, No Ear Pain, No Nasal Congestion, No Sinus Pain, No Hoarseness, No sore throat, No Rhinorrhea, No Swallowing Difficulty Eyes: No Eye Pain, No Swelling, No Redness, No Foreign Body, No Discharge, No Vision Changes Cardiovascular : No Chest Pain, No SOB, No Dyspnea on Exertion, No Orthopnea, No Edema, No Palpitations Respiratory : No Cough, No Sputum, No Wheezing, No Smoke Exposure, No Dyspnea Gastrointestinal : No Nausea, No Vomiting, No Diarrhea, No Constipation, No abdominal Pain, No Hematochezia, No Melena Genitourinary : no irregular bleeding, No Dysuria, No Urinary Frequency, No Hematuria, No Urinary Incontinence, No Urgency, No Flank Pain, No Urinary Flow Changes, No Hesitancy Musculoskeletal : No joint pain, No Myalgias, No Joint Swelling Skin : Complaining of hives in the chest Neuro : No Weakness, No Numbness, No Paresthesias, No Loss of Consciousness, No Dizziness, No Headache Psych : No Anxiety/Panic, No Depression, No SI/HI/AH/VH, No Social Issues, Heme/Lymph: No Bruising, No Bleeding,No Lymphadenopathy Endocrine : No Polyuria, No Polydipsia, No Temperature Intolerance [facility] Social History Social History Alcohol intake: current Smoked in Last 30 Days: No Use of substances other than those prescribed or required for medical reasons: No Advance Directives: No Advance Directives Information Provided: Yes Patient : No Physical Exam ED Vital Signs: Vital Signs - 24 hr 03/09/25 20:43 Temperature 98.6 F Pulse Rate 88 Respiratory Rate 20 Blood Pressure 135/67 Pulse Oximetry 100 Oxygen Delivery Method Room Air BMI result Body Mass Index 39.3 Const Other: Appearance: Alert. Oriented X3. No acute distress. Eyes: Pupils equal, round and reactive to light. ENT: Pharynx normal. Upper lip bilaterally swollen, no oropharyngeal edema or phlegmon Neck: Normal inspection. Neck supple. No lymph nodes noted. No crepitus CVS: Normal heart rate and rhythm. Pulses normal. Normal S1 and S2 Respiratory: No respiratory distress. Breath sounds normal. No Wheezing. No rales Abdomen: Soft and nontender. No rigidity. No distention. Skin: Skin warm and dry. Normal skin color. Normal skin turgor. Extremities: No lower extremity edema. No Lacerations. No Rash Neuro: Oriented X 3. No motor deficit. No sensory deficit. Moving all extremities. No slurred speech. CN 2 through 12 grossly intact Psych: calm, cooperative, normal affect Course Course Course Narrative: Patient already took 2 tablets of Benadryl several hours ago. Patient receiving IV fluids, IV Benadryl, Pepcid, Solu-Medrol Patient's vitals stable, no airway compromise Medications Administered Discontinued Medications Generic Name Dose Route Start Last Admin Trade Name Freq PRN Reason Stop Dose Admin Diphenhydramine HCl 50 mg 03/09/25 21:08 03/09/25 21:26 Diphenhydramine Hcl 50 Mg/Ml Vial IVPUSH 03/09/25 21:09 50 mg ONCE ONE Administration Famotidine 20 mg 03/09/25 21:08 03/09/25 21:26 Famotidine/Pf 20 Mg/2 Ml Vial IVPUSH 03/09/25 21:09 20 mg ONCE ONE Administration Sodium Chloride 1,000 mls @ 999 mls/hr 03/09/25 21:08 03/09/25 22:21 Ns IVCONT 03/09/25 22:08 Infused .Q1H1M ONE Infusion Methylprednisolone Sodium Succinate 125 mg 03/09/25 21:08 03/09/25 21:26 Methylprednisolone Sod Succ 125 Mg Vial IVPUSH 03/09/25 21:09 125 mg ONCE ONE Administration Ondansetron HCl 4 mg 03/09/25 21:36 03/09/25 21:40 Ondansetron Hcl 4 Mg/2 Ml Vial IVPUSH 03/09/25 21:37 4 mg ONCE ONE Administration Medical Decision Making Medical Decision Making [facility] Narrative: After the above-mentioned treatment, patient's lips look less swollen, patient has no foreign body sensation, no wheezing, patient states that her lips feel much better, no longer hurting or feeling a swollen. 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 Patient states that she has an EpiPen at home, states that she is pretty sure that it will not any time soon Differential Diagnosis Differential Diagnoses: The differential diagnosis associated with the pre sentation includes (Anaphylaxis, allergic reaction, angioedema) Admission/Observation Consideration of admission/observation: Escalation of care including admission/observation considered (Given patient's initial presentation, observation was considered) Critical Care Time Critical Care Time Critical Care Time: Yes Total Critical Care Time: 40 Attestation: I have personally provided critical care time. Time includes review of lab data, radiology results, discussion with consultants, and monitoring for potential decompensation. Intervention performed as documented. Discharge Plan Discharge Clinical Impression: Allergic reaction Patient Disposition: Home, Self-Care Instructions: General Allergic Reaction (ED) Additional Instructions: Please follow-up with your primary care physician tomorrow. If you have any worsening or new symptoms, please return to the emergency room or call 911 Prescriptions: New prednisone 50 mg tablet 50 mg PO DAILY Qty: 4 0RF famotidine [Pepcid] 40 mg tablet 40 mg PO DAILY Qty: 4 0RF No Action epinephrine [EpiPen] 0.3 mg/0.3 mL auto-injector 0.3 mg IM Q4H PRN (Reason: anaphylaxis) Qty: 2 2RF prednisone 20 mg tablet 60 mg PO DAILY 5 Days Qty: 15 0RF Print Language: Mosotho
[2025-03-09] MEDS: 0.9 % Sodium Chloride 1,000 ML 999 ML IVCONT (21:18)
[2025-03-09] MEDS: diphenhydrAMINE HCL 50 MG/ML VIAL IVPUSH (21:26)
[2025-03-09] MEDS: Famotidine/PF 20 MG/2 ML VIAL IVPUSH (21:26)
[2025-03-09] MEDS: ondansetron HCL 4 MG/2 ML VIAL IVPUSH (21:40)
[2025-03-09 22:50] VITALS: BP 110/66; PULSE 71; RESP 18; TEMP 36.8; O2SAT 98
[2025-03-09 22:51] VITALS: BP 110/66; PULSE 71; RESP 18; TEMP 36.8; O2SAT 98
== END 2025-03-09 22:53 | disposition home or self-care (01) ==
PROVIDERS: Emergency Provider Emergency Medicine; PCP Internal Medicine
DX: L50.0 Allergic urticaria (principal); R13.10 Dysphagia, unspecified; R11.0 Nausea
CPT/HCPCS: 96361; 96374; 96375; 99284; J1200; J1308; J2405; J2919

== ENCOUNTER 2025-08-08 17:21 | Emergency (ER) | payer BC, SELFPAY ==
--- NOTE | ~2025-08-08 | XR_ITS ---
CLINICAL HISTORY: pain 2 view chest x-ray Comparison: None provided Findings: The lungs are clear. Heart size is normal. No acute fracture. IMPRESSION: 1. No acute findings. This document has been electronically signed by: Ami Mccallum MD on 08/08/2025 19:07:52
--- NOTE | 2025-08-08 17:24 | ECG_ITS ---
Test Reason : CP Blood Pressure : */* mmHG Vent. Rate : 91 BPM Atrial Rate : 91 BPM P-R Int : 160 ms QRS Dur : 72 ms QT Int : 434 ms P-R-T Axes : 55 45 64 degrees QTcB Int : 533 ms Normal sinus rhythm with sinus arrhythmia Low voltage QRS Nonspecific T wave abnormality Abnormal ECG When compared with ECG of 04-Dec-2023 20:28, Nonspecific T wave abnormality, worse in Inferior leads Nonspecific T wave abnormality, worse in Anterolateral leads Referred By: Generic ED Physician Electronically Signed By: ANDREW ROONEY MD
[2025-08-08 17:49] VITALS: BP 127/64; PULSE 98; RESP 18; TEMP 36.6; O2SAT 98; BMI 29.3
--- NOTE | 2025-08-08 17:49 | ED_ITS ---
HPI - General Adult General Chief complaint: Chest Pain Stated complaint: CHEST PAINS Time Seen by Provider: 08/08/25 19:29 Related Data Previous Rx's ?Medication ?Instructions ?Recorded epinephrine 0.3 mg/0.3 mL 0.3 mg (0.3 mL) IM Q4H PRN 0 12/04/23 injection, auto-injector (EpiPen) anaphylaxis #2 ea prednisone 20 mg tablet 60 mg (3 x 20 mg) PO DAILY A sthma 11/02/24 5 days #15 tabs famotidine 40 mg tablet (Pepcid) 40 mg PO DAILY #4 tab s 03/09/25 prednisone 50 mg tablet 50 mg PO DAILY #4 tabs 03/09 Allergies Allergy/AdvReac Type Severity Reaction Status Date / Time azithromycin Allergy Anaphylaxis Verified 08/08/25 17:51 Beef Containing Products Allergy Anaphylaxis Verified 08/08/25 17:51 blackberry Allergy Anaphylaxis Verified 08/08/25 17:51 blueberry Allergy Anaphylaxis Verified 08/08/25 17:51 chicken derived (chicken) Allergy Anaphylaxis Verified 08/08/25 17:51 egg Allergy Anaphylaxis Verified 08/08/25 17:51 environmental allergies Allergy Unknown Verified 08/08/25 17:51 fish derived (fish) Allergy Anaphylaxis Verified 08/08/25 17:51 ibuprofen (From Advil) Allergy Anaphylaxis Verified 08/08/25 17:51 milk Allergy Anaphylaxis Verified 08/08/25 17:51 mustard Allergy Anaphylaxis Verified 08/08/25 17:51 naproxen (From Aleve) Allergy Anaphylaxis Verified 08/08/25 17:51 onion Allergy Anaphylaxis Verified 08/08/25 17:51 pork derived (porcine) Allergy Anaphylaxis Verified 08/08/25 17:51 raspberry Allergy Anaphylaxis Verified 08/08/25 17:51 strawberry Allergy Anaphylaxis Verified 08/08/25 17:51 sunflower seed Allergy Anaphylaxis Verified 08/08/25 17:51 PMFSH Social History Social History Alcohol intake: current Advance Directives: No Advance Directives Information Provided: Yes Do you have a plan to hurt others: No Plan Patient : No Physical Exam ED Vital Signs: Vital Signs - 24 hr 08/08/25 17:49 08/08/25 19:59 Temperature 98 F 98.2 F Pulse Rate 98 90 Respiratory Rate 18 18 Blood Pressure 127/64 114/68 Pulse Oximetry 98 100 Oxygen Delivery Method Room Air BMI result Body Mass Index 29.3 Course Course Course Narrative: RME, this is a rapid medical exam performed by Bernabe Wood please refer to primary provider for complete H&P- 25-year-old female presents for evaluation of chest pain that radiates through to her back. Plan for labs, EKG was ordered we will obtain a chest x-ray Medical Decision Making Lab Data 08/08/25 18:08 08/08/25 18:08 Labs: Lab Results 08/08/25 08/08/25 08/08/25 Range/Units 18:08 20:07 21:37 WBC 5.6 (4.8-10.8) X10*3/uL RBC 4.39 (4.20-5.50) X10*6/uL Hgb 13.0 (12.0-16.0) g/dl Hct 38.7 (37.0-47.0) % MCV 88.2 (80.0-98.0) fL MCH 29.6 (27.0-33.0) pg MCHC 33.6 (31.0-35.0) g/dl RDW 12.1 (11.0-16.0) % Plt Count 236 (160-400) X10*3/uL MPV 10.0 (9.4-12.3) fL Immature Gran % (Auto) 0.2 (0.0-0.4) % Neut % (Auto) 51.2 (45-73) % Lymph % (Auto) 36.9 (20-40) % [place] % (Auto) 6.2 (2-11) % Eos % (Auto) 5.0 H (0-4) % Baso % (Auto) 0.5 (0-2) % Lymph # (Auto) 2.1 (1.2-4.9) X10*3/uL [place] # (Auto) 0.4 (0.1-1.2) X10*3/uL Eos # (Auto) 0.3 (0.0-0.4) X10*3/uL Baso # (Auto) 0.0 (0.0-0.2) X10*3/uL Abs Immat Gran (auto) 0.01 (0.00-0.03) X10*3/uL Absolute Neuts (auto) 2.9 (2.0-8.3) x10*3/uL Absolute Nucleated RBC 0.000 (0.0-0.012) X10*3/uL Nucleated RBC % (auto) 0.0 (0.0-0.2) /100WBC D-Dimer High Sensitivty < 150 NG/ML Sodium 141 (135-145) mmol/L Potassium 4.3 (3.3-5.1) mmol/L Chloride 106 (96-108) mmol/L Carbon Dioxide 26 (22-29) mmol/L Anion Gap 13 (12-20) BUN 13 (9-16) mg/dL Creatinine 0.86 (0.5-1.4) mg/dL Estim Creat Clear Calc 88.8 Estimated GFR > 60 Random Glucose 84 (60-115) mg/dL Calcium 9.9 (8.4-10.2) mg/dL Total Bilirubin 1.3 H (0.0-1.0) mg/dL AST 17 (5-31) U/L ALT 12 (0-31) U/L Alkaline Phosphatase 47 (39-117) U/L Troponin I High Sens < 2.7 < 2.7 (<3.5-17.0) ng/L Total Protein 7.5 (6.5-8.0) g/dL Albumin 5.0 (3.5-5.0) g/dL Lipase 64 (8-78) U/L Beta HCG, Quant < 2 mIU/mL Urine Color Yellow Urine Appearance Clear Urine pH 6.0 (5.0-9.0) Ur Specific [place] >= 1.030 H (1.005-1.025) Urine Protein Negative (Neg-Trace) mg/dL Urine Glucose (UA) Negative (Negative) mg/dL Urine Ketones 15 (Negative) mg/dL Urine Blood Negative (Negative) Urine Nitrite Negative (Negative) Ur Leukocyte Esterase Trace H (Negative) Urine RBC 0-2 (0-2) /HPF Urine WBC 0-5 (0-5) /HPF Ur Squamous Epith Cells 3-5 (0-2) /HPF Urine Bacteria None Seen (None Seen) Hyaline Casts 0-2 (0-2) /LPF Discharge Plan Discharge Clinical Impression: Chest pain Patient Disposition: Home, Self-Care Instructions: Chest Pain (DC) Prescriptions: No Action epinephrine [EpiPen] 0.3 mg/0.3 mL auto-injector 0.3 mg IM Q4H PRN (Reason: anaphylaxis) Qty: 2 2RF prednisone 20 mg tablet 60 mg PO DAILY 5 Days Qty: 15 0RF prednisone 50 mg tablet 50 mg PO DAILY Qty: 4 0RF famotidine [Pepcid] 40 mg tablet 40 mg PO DAILY Qty: 4 0RF Referrals: Glenn Max MD [Primary Care Provider, Internal Medicine] - 08/11/25 Print Language: Egyptian
[2025-08-08 18:12] LABS: MANUAL DIFF FLAG NO
[2025-08-08 18:15] LABS: Hematocrit 38.7 % (37.0-47.0); Hemoglobin 13.0 g/dl (12.0-16.0); Imm Gran Abs Auto 0.01 X10*3/uL (0.00-0.03); Imm Gran Pct Auto 0.2 % (0.0-0.4); Lymphocytes Absolute Auto 2.1 X10*3/uL (1.2-4.9); Mean Corpuscular HGB Conc 33.6 g/dl (31.0-35.0); Mean Corpuscular Hemoglobin 29.6 pg (27.0-33.0); Mean Corpuscular Volume 88.2 fL (80.0-98.0); NRBC Abs Auto 0.000 X10*3/uL (0.0-0.012); NRBC Pct Auto 0.0 /100WBC (0.0-0.2); Platelet Count 236 X10*3/uL (160-400); Red Blood Count 4.39 X10*6/uL (4.20-5.50); White Blood Count 5.6 X10*3/uL (4.8-10.8)
[2025-08-08 18:36] LABS: Troponin-I High Sensitivity < 2.7 ng/L (<3.5-17.0)
[2025-08-08 18:37] LABS: Alanine Aminotransferase 12 U/L (0-31); Albumin Level 5.0 g/dL (3.5-5.0); Alkaline Phosphatase 47 U/L (39-117); Anion Gap 13 (12-20); Aspartate Amino Transferase 17 U/L (5-31); Blood Urea Nitrogen 13 mg/dL (9-16); Calcium 9.9 mg/dL (8.4-10.2); Carbon Dioxide 26 mmol/L (22-29); Chloride 106 mmol/L (96-108); Creatinine Clr Calc Pharmacy 88.8; Estimated Glomerular Filt Rate > 60; Lipase 64 U/L (8-78); Potassium 4.3 mmol/L (3.3-5.1); Sodium 141 mmol/L (135-145); Total Protein 7.5 g/dL (6.5-8.0)
[2025-08-08 19:59] VITALS: BP 114/68; PULSE 90; RESP 18; TEMP 36.8; O2SAT 100
--- NOTE | 2025-08-08 20:01 | PC.NURSE ---
pt reports chest [pain starting yesterday, yesterday on R radiating towards upper back, today on L side going down towards ribs. HX of acid reflux, on medication and states this doesn't feel like acid reflux , has not taken any pain meds, mild headache, denies nausea vomiting at this time. Pt ambulated to bathroom for urine sample. Placed on monitor, EKG , chest X ray and blood work done in triage.
[2025-08-08 20:13] LABS: Appearance Urine Clear; Glucose Urine UA Negative (Negative); PH 6.0 (5.0-9.0); Specific Gravity - Urine >= 1.030 (1.005-1.025); UMIC TRIGGER UACC YES
--- NOTE | 2025-08-08 21:10 | ED.CHESTPAIN ---
HPI - Chest Pain General Chief Complaint: Chest Pain Stated Complaint: CHEST PAINS Time Seen by Provider: 08/08/25 19:29 History of Present Illness HPI narrative: Patient is a 25-year-old female presents today with having 2 types of pain 1 is a tightness around the whole chest that is been ongoing. It has been since yesterday afternoon. A 2nd type of pain is more sharp. It was over the right chest radiates to the shoulder area yesterday. Today patient had a sharp pain on the left chest radiating down to the lower rib area. There is no diaphoresis. There is no specific trigger for the pain. Exertion does not make it worse. She has a history of high cholesterol and hypertension. No history of [place]. patient has no history of smoking. No family history of ACS. From home. He is on control. There is no leg swelling. No history of blood clots in the past. No travel history. No history of cancer. Related Data Previous Rx's ?Medication ?Instructions ?Recorded epinephrine 0.3 mg/0.3 mL 0.3 mg (0.3 mL) IM Q4H PRN 12/04/23 injection, auto-injector (EpiPen) anaphylaxis #2 ea prednisone 20 mg tablet 60 mg (3 x 20 mg) PO DAILY Asthma 11/02/24 5 days #15 tabs famotidine 40 mg tablet (Pepcid) 40 mg PO DAILY #4 tabs 03/09/25 prednisone 50 mg tablet 50 mg PO DAILY #4 tabs 03/09/25 Allergies Allergy/AdvReac Type Severity Reaction Status Date / Time azithromycin Allergy Anaphylaxis Verified 08/08/25 17:51 Beef Containing Products Allergy Anaphylaxis Verified 08/08/25 17:51 blackberry Allergy Anaphylaxis Verified 08/08/25 17:51 blueberry Allergy Anaphylaxis Verified 08/08/25 17:51 chicken derived (chicken) Allergy Anaphylaxis Verified 08/08/25 17:51 egg Allergy Anaphylaxis Verified 08/08/25 17:51 environmental allergies Allergy Unknown Verified 08/08/25 17:51 fish derived (fish) Allergy Anaphylaxis Verified 08/08/25 17:51 ibuprofen (From Advil) Allergy Anaphylaxis Verified 08/08/25 17:51 milk Allergy Anaphylaxis Verified 08/08/25 17:51 mustard Allergy Anaphylaxis Verified 08/08/25 17:51 naproxen (From Aleve) Allergy Anaphylaxis Verified 08/08/25 17:51 onion Allergy Anaphylaxis Verified 08/08/25 17:51 pork derived (porcine) Allergy Anaphylaxis Verified 08/08/25 17:51 raspberry Allergy Anaphylaxis Verified 08/08/25 17:51 strawberry Allergy Anaphylaxis Verified 08/08/25 17:51 sunflower seed Allergy Anaphylaxis Verified 08/08/25 17:51 Review of Systems Review of Systems: Positive chest pain Yes all other systems are reviewed and are negative [facility] Past Medical History Attestation statement: The following information was validated with the patient. Social History Social History Alcohol intake: current Advance Directives: No Advance Directives Information Provided: Yes Do you have a plan to hurt others: No Plan Patient : No Physical Exam Exam: Exam: Appearance: Alert. Oriented X3. No acute distress. Eyes: Pupils equal, round and reactive to light. ENT: Pharynx normal. Neck: Normal inspection. Neck supple. No lymph nodes noted. No crepitus CVS: Normal heart rate and rhythm. Pulses normal. Normal S1 and S2 Respiratory: No respiratory distress. Breath sounds normal. No Wheezing. No rales Abdomen: Soft and nontender. No rigidity. No distention. good BS x4 Skin: Skin warm and dry. Normal skin color. Normal skin turgor. Extremities: No lower extremity edema. Neurovascular intact to all extremities. No Lacerations. No Rash Neuro: Oriented X 3. No motor deficit. No sensory deficit. Moving all extermities. No slurred speech Vital Signs: Vital Signs: Last Vital Signs Temp 98.2 F 08/08/25 19:59 Pulse 90 08/08/25 19:59 Resp 18 08/08/25 19:59 BP 114/68 08/08/25 19:59 Pulse Ox 100 08/08/25 19:59 O2 Del Method Room Air 08/08/25 19:59 BMI result Body Mass Index 29.3 Medical Decision Making Medical Decision Making [facility] Narrative: My interpretation patient's EKG showed a sinus rhythm heart rate is 90 [place] QRS QTC normal there is diffuse T-wave flattening noted. My interpretation patient's chest x-ray is grossly negative no pneumonia no pneumothorax. Enzymes were done they were negative. Patient's hemoglobin is 13 no signs of anemia. Patient's D-dimer was negative at less than 150. In the setting of low risk unlikely to have PE. She is well-appearing. No distress. test negative not related. Will discharge patient home. Close follow-up on an outpatient basis. She is 25 years old. No history of ACS. Question family history of high cholesterol. No history of [place]. No history of smoking. No family history of ACS. Will discharge patient home. Patient's heart score is less than 3. In the setting of atypical history negative enzyme nonspecific EKG Differential Diagnosis Differential Diagnoses: The differential diagnosis associated with the presentation includes ACS, pneumonia, pneumothorax, musculoskeletal chest pain, PE Admission/Observation Consideration of admission/observation: Escalation of care including admission/observation considered Lab Data MDM Lab Attestation statement: I reviewed the patient's lab results. 08/08/25 18:08 08/08/25 18:08 Labs: Lab Results 08/08/25 08/08/25 08/08/25 Range/Units 18:08 20:07 21:37 WBC 5.6 (4.8-10.8) X10*3/uL RBC 4.39 (4.20-5.50) X10*6/uL Hgb 13.0 (12.0-16.0) g/dl Hct 38.7 (37.0-47.0) % MCV 88.2 (80.0-98.0) fL MCH 29.6 (27.0-33.0) pg MCHC 33.6 (31.0-35.0) g/dl RDW 12.1 (11.0-16.0) % Plt Count 236 (160-400) X10*3/uL MPV 10.0 (9.4-12.3) fL Immature Gran % (Auto) 0.2 (0.0-0.4) % Neut % (Auto) 51.2 (45-73) % Lymph % (Auto) 36.9 (20-40) % [place] % (Auto) 6.2 (2-11) % Eos % (Auto) 5.0 H (0-4) % Baso % (Auto) 0.5 (0-2) % Lymph # (Auto) 2.1 (1.2-4.9) X10*3/uL [place] # (Auto) 0.4 (0.1-1.2) X10*3/uL Eos # (Auto) 0.3 (0.0-0.4) X10*3/uL Baso # (Auto) 0.0 (0.0-0.2) X10*3/uL Abs Immat Gran (auto) 0.01 (0.00-0.03) X10*3/uL Absolute Neuts (auto) 2.9 (2.0-8.3) x10*3/uL Absolute Nucleated RBC 0.000 (0.0-0.012) X10*3/uL Nucleated RBC % (auto) 0.0 (0.0-0.2) /100WBC D-Dimer High Sensitivty < 150 NG/ML Sodium 141 (135-145) mmol/L Potassium 4.3 (3.3-5.1) mmol/L Chloride 106 (96-108) mmol/L Carbon Dioxide 26 (22-29) mmol/L Anion Gap 13 (12-20) BUN 13 (9-16) mg/dL Creatinine 0.86 (0.5-1.4) mg/dL Estim Creat Clear Calc 88.8 Estimated GFR > 60 Random Glucose 84 (60-115) mg/dL Calcium 9.9 (8.4-10.2) mg/dL Total Bilirubin 1.3 H (0.0-1.0) mg/dL AST 17 (5-31) U/L ALT 12 (0-31) U/L Alkaline Phosphatase 47 (39-117) U/L Troponin I High Sens < 2.7 < 2.7 (<3.5-17.0) ng/L Total Protein 7.5 (6.5-8.0) g/dL Albumin 5.0 (3.5-5.0) g/dL Lipase 64 (8-78) U/L Beta HCG, Quant < 2 mIU/mL Urine Color Yellow Urine Appearance Clear Urine pH 6.0 (5.0-9.0) Ur Specific [place] >= 1.030 H (1.005-1.025) Urine Protein Negative (Neg-Trace) mg/dL Urine Glucose (UA) Negative (Negative) mg/dL Urine Ketones 15 (Negative) mg/dL Urine Blood Negative (Negative) Urine Nitrite Negative (Negative) Ur Leukocyte Esterase Trace H (Negative) Urine RBC 0-2 (0-2) /HPF Urine WBC 0-5 (0-5) /HPF Ur Squamous Epith Cells 3-5 (0-2) /HPF Urine Bacteria None Seen (None Seen) Hyaline Casts 0-2 (0-2) /LPF Independent Interpretation I performed an independent interpretation of an: EKG (Sinus heart rate is 80 [place] QRS QTC normal there is diffuse T-wave flattening.) and Plain X-Ray (Chest x-ray negative for pneumonia pneumothorax) Radiology Impression Discussion of test interpretation with radiology: I have reviewed the radiologist's reading. Chronic Conditions Family history of high cholesterol Social Determinants Patient?s care significantly limited by Social Determinants of Health including: Problems related to primary support group Discharge Plan Discharge Clinical Impression: Chest pain Patient Disposition: Home, Self-Care Instructions: Chest Pain (DC) Prescriptions: No Action epinephrine [EpiPen] 0.3 mg/0.3 mL auto-injector 0.3 mg IM Q4H PRN (Reason: anaphylaxis) Qty: 2 2RF prednisone 20 mg tablet 60 mg PO DAILY 5 Days Qty: 15 0RF prednisone 50 mg tablet 50 mg PO DAILY Qty: 4 0RF famotidine [Pepcid] 40 mg tablet 40 mg PO DAILY Qty: 4 0RF Referrals: Glenn Max MD [Primary Care Provider, Internal Medicine] - 08/11/25 Print Language: Estonian
[2025-08-08 21:52] LABS: D Dimer High Sensitivity < 150 NG/ML
[2025-08-08 22:17] LABS: Troponin-I High Sensitivity < 2.7 ng/L (<3.5-17.0)
[2025-08-08 22:56] VITALS: BP 120/77; PULSE 90; RESP 16; TEMP 36.8; O2SAT 99
== END 2025-08-08 23:00 | disposition home or self-care (01) ==
PROVIDERS: Physician Assistant; Emergency Provider Emergency Medicine Emergency Medical Services; PCP Internal Medicine
DX: R07.9 Chest pain, unspecified (principal); M25.511 Pain in right shoulder; Z79.3 Long term (current) use of hormonal contraceptives
CPT/HCPCS: 36415; 71046; 80053; 81001; 83690; 84484; 84702; 85025; 85379; 93005; 99283; 99285

== ENCOUNTER → 2025-08-08 17:24 | Outpatient (BNV) | payer BC, SELFPAY | PROVIDERS: Emergency Provider Emergency Medicine Emergency Medical Services; PCP Internal Medicine; Visit Provider Internal Medicine Cardiovascular Disease | DX: I49.9 Cardiac arrhythmia, unspecified (principal) | CPT/HCPCS: 93010 ==

== ENCOUNTER → 2025-08-08 17:49 | Outpatient (BNV) | payer BC, SELFPAY | PROVIDERS: Emergency Provider Emergency Medicine Emergency Medical Services; PCP Internal Medicine; Visit Provider Student in an Organized Health Care Education/Training Program | DX: R07.9 Chest pain, unspecified (principal) | CPT/HCPCS: 71046 ==